=== PATIENT | male | born 1955 ===

== ENCOUNTER 2016-12-26 00:46 | Emergency (ER) | payer MEDICAID ==
[2016-12-26 23:57] LABS: MEAN CELL VOLUME 83.4 fL (80.0-94.0); MEAN CORPUSCULAR HEMOGLOBIN 26.5 pg (27.0-31.0); MEAN CORPUSCULAR HGB CONC 31.8 g/dL (33.0-37.0); MEAN PLATELET VOLUME 8.8 fL (7.2-11.7); RED CELL DISTRIBUTION WIDTH 17.8 % (11.5-14.5)
[2016-12-27 07:23] LABS: BLOOD UREA NITROGEN 17 mg/dL (9-20); CALCIUM 8.6 mg/dl (8.6-10.4); CARBON DIOXIDE 29 mmol/L (22-30); CHLORIDE 95 mmol/L (98-107); GFR AFRICAN-AMERICAN > 60; GLUCOSE,RANDOM 96 mg/dL (75-110); POTASSIUM 3.7 mmol/L (3.6-5.2); SODIUM 133 mmol/L (132-148); TOTAL PROTEIN 6.9 g/dL (6.3-8.3)
[2016-12-27 07:24] LABS: ALB/GLOB RATIO 1.7 (1.0-2.1); ALKALINE PHOSPHATASE 69 U/L (38-126); ALT/SGPT 41 U/L (21-72); AST/SGOT 33 U/L (17-59); BILIRUBIN,TOTAL 0.6 mg/dL (0.2-1.3)
[2016-12-27 07:35] LABS: RBC URINE 1 /hpf (0-3); URINE BACTERIA RARE (<OCC); URINE BILIRUBIN NEGATIVE (NEGATIVE); URINE BLOOD NEGATIVE (NEGATIVE); URINE COLOR Yellow (YELLOW); URINE GLUCOSE (UA) NORMAL (Normal); URINE KETONE NEGATIVE (NEGATIVE); URINE LEUKOCYTE ESTERASE NEG Leu/uL (Negative); URINE PROTEIN NEGATIVE (NEGATIVE); URINE UROBILINOGEN NORMAL mg/dL (0.2-1.0); WBC URINE 2 /hpf (0-5)
== END 2016-12-26 05:45 | disposition home or self-care (01) ==
LOC: C.ER 00:46
DX: K29.70 Gastritis, unspecified, without bleeding (principal); R10.13 Epigastric pain
CPT/HCPCS: 80053; 81001; 83690; 85027; 99281; J1885

== ENCOUNTER 2017-01-01 22:50 | Emergency (ER) | payer MEDICAID ==
[2017-01-01 22:50] VITALS: BMI 20.4
--- NOTE | 2017-01-02 00:09 | C.PDOC ---
History Of Present Illness Patient is a 61 year old male who presents to the ER with a complaint of lower abdominal pain and not being able to pass urine normally. Patient has had multiple admissions since October for dysuria, urinary retention and frequent UTIs. Patient was diagnosed with rectal CA in October. Patient has been taking medication for several months and states they did not help today. Patient has been voiding small amounts with episodes of incontinence. Denies fever, nausea, vomiting or diarrhea. Patient states that he went for a few chemo treatments but stopped going because of his urinary discomfort. Time Seen by Provider: 01/01/17 23:33 Chief Complaint (Nursing): Male Genitourinary History Per: Patient History/Exam Limitations: no limitations Onset/Duration Of Symptoms: Hrs Current Symptoms Are (Timing): Still Present Quality Of Discomfort: Unable To Describe Associated Symptoms: Urinary Symptoms (Abnormal voiding). denies: Fever, Nausea , Vomiting, Diarrhea Alleviating Factors: None Recent travel outside of the [place]: No Past Medical History Reviewed: Historical Data, Nursing Documentation, Vital Signs Vital Signs: Last Vital Signs Temp 97.6 F 01/01/17 22:56 Pulse 108 H 01/01/17 22:56 Resp 18 01/01/17 22:56 BP 133/83 01/01/17 22:56 Pulse Ox 100 01/02/17 01:01 - Medical History PMH: Asthma, HTN Other PMH: Rectal CA - [facility] Procedures EXCISION OF ASCENDING COLON, ENDO, DIAGN (10/20/16) EXCISION OF SIGMOID COLON, ENDO, DIAGN (10/20/16) INSERTION OF VAD INTO CHEST SUBCU/FASCIA, OPEN APPROACH (10/20/16) INSPECTION OF UPPER INTESTINAL TRACT, ENDO (10/20/16) INSPECTION OF UPPER VEIN, EXTERNAL APPROACH (10/20/16) Family History: States: Unknown Family Hx - Social History Hx Tobacco Use: No Hx Alcohol Use: Yes Hx Substance Use: No - Immunization History Hx Tetanus Toxoid Vaccination: No Hx Influenza Vaccination: No Hx Pneumococcal Vaccination: No Review Of Systems Constitutional: Negative for: Fever Gastrointestinal: Negative for: Nausea, Vomiting, Diarrhea Genitourinary: Positive for: Incontinence, Other (Abnormal voiding) Physical Exam - Physical Exam Appears: Non-toxic Skin: Normal Color, Warm, Dry Head: Atraumatic, Normacephalic Oral Mucosa: Moist Chest: Symmetrical, No Tenderness Cardiovascular: Rhythm Regular, No Murmur Respiratory: Normal Breath Sounds, No Rales, No Rhonchi, No Wheezing Gastrointestinal/Abdominal: Soft, Tenderness (Suprapubic), Guarding, No Rebound Neurological/Psych: Oriented x3, Normal Speech, Normal Cognition ED Course And Treatment - Laboratory Results Result Diagrams: 01/02/17 00:01 01/02/17 00:01 Lab Interpretation: No Acute Changes O2 Sat by Pulse Oximetry: 100 (Room air) Pulse Ox Interpretation: Normal Progress Note: Blood work and urinalysis ordered. Patient was able to provide a urine specimen without difficulty. Disposition Counseled Patient/Family Regarding: Studies Performed, Diagnosis, Need For Followup - Disposition Referrals: Bennett Malik MD [Staff Provider] - Disposition: HOME/ ROUTINE Disposition Time: 01:00 Condition: STABLE Instructions: Dysuria (ED) Print Language: MALAWIAN - Clinical Impression Clinical Impression: Enlarged prostate, Dysuria, Rectal cancer - Scribe Statement The provider has reviewed the documentation as recorded by the Scribles Cruz All medical record entries made by the Deanaibles were at my direction and personally dictated by me. I have reviewed the chart and agree that the record accurately reflects my personal performance of the history, physical exam, medical decision making, and the department course for this patient. I have also personally directed, reviewed, and agree with the discharge instructions and disposition.
[2017-01-02 00:30] LABS: BASO # 0.1 K/uL (0.0-0.2); BASO % 0.9 % (0.0-2.0); EOS % 0.6 % (0.0-4.0); HEMATOCRIT 44.5 % (35.0-51.0); LYMPH # 1.5 K/uL (1.0-4.3); LYMPH % 21.9 % (20.0-40.0); MEAN CELL VOLUME 90.5 fL (80.0-94.0); MEAN CORPUSCULAR HEMOGLOBIN 30.2 pg (27.0-31.0); MEAN CORPUSCULAR HGB CONC 33.4 g/dL (33.0-37.0); MEAN PLATELET VOLUME 6.8 fL (7.2-11.7); MONO # 0.7 K/uL (0.0-0.8); MONO % 11.1 % (0.0-10.0); RED CELL DISTRIBUTION WIDTH 13.7 % (11.5-14.5); WHITE BLOOD COUNT 6.7 K/uL (4.8-10.8)
[2017-01-02 00:33] LABS: RBC URINE < 1 /hpf (0-3); URINE BILIRUBIN NEGATIVE (NEGATIVE); URINE BLOOD NEGATIVE (NEGATIVE); URINE COLOR Straw (YELLOW); URINE GLUCOSE (UA) NORMAL (Normal); URINE KETONE NEGATIVE (NEGATIVE); URINE LEUKOCYTE ESTERASE NEG Leu/uL (Negative); URINE PROTEIN NEGATIVE (NEGATIVE); URINE UROBILINOGEN NORMAL mg/dL (0.2-1.0); WBC URINE < 1 /hpf (0-5)
[2017-01-02 00:51] LABS: CHLORIDE 92 mmol/L (98-107)
[2017-01-02 00:52] LABS: POTASSIUM 4.1 mmol/L (3.6-5.2); SODIUM 133 mmol/L (132-148)
[2017-01-02 00:54] LABS: ALB/GLOB RATIO 1.5 (1.0-2.1); ALKALINE PHOSPHATASE 65 U/L (38-126); ALT/SGPT 34 U/L (21-72); AST/SGOT 33 U/L (17-59); BILIRUBIN,TOTAL 0.7 mg/dL (0.2-1.3); BLOOD UREA NITROGEN 17 mg/dL (9-20); CARBON DIOXIDE 31 mmol/L (22-30); GFR AFRICAN-AMERICAN > 60; GLUCOSE,RANDOM 108 mg/dL (75-110)
[2017-01-02 00:55] LABS: CALCIUM 8.6 mg/dl (8.6-10.4)
[2017-01-02 01:16] VITALS: BP 130/80; PULSE 84; RESP 16; TEMP 97.9; O2SAT 99
== END 2017-01-02 01:16 | disposition home or self-care (01) ==
LOC: C.ER 22:50 → MERGE 22:50 → C.ER 01-02 01:16
DX: C20 Malignant neoplasm of rectum (principal); R30.0 Dysuria; N40.0 Benign prostatic hyperplasia without lower urinary tract symptoms; I10 Essential (primary) hypertension

== ENCOUNTER 2017-01-11 18:07 | Emergency (ER) | payer MEDICAID ==
[2017-01-11 18:09] VITALS: BMI 44.9
--- NOTE | 2017-01-11 19:04 | C.PDOC ---
History Of Present Illness Patient is a 61 y/o male, with history of recurrent urinary symptoms, that presents to the emergency department for evaluation of suprapubic abdominal pain , urinary retention, and episode of urinary incontinence for the last 3-4 days. Pt was seen here multiple times in the ER with similar complaints and was instructed to follow up with urologist on several occasions. Pt has not followed up with urologist yet, due to insurance reasons. Pt was seen at [facility] on 12/27/16 with similar complaints, and had abd & pelvis CT that showed bladder distention. Otherwise, denies any n/v/d, dysuria, hematuria, fever, chills, or any other associated symptoms at this time. He had a rectal biopsy that showed adenocarcinoma in October of this year but the excised lesion was negative. He did start chemo but stopped following up when the urinary symptoms developed. Time Seen by Provider: 01/11/17 18:42 Chief Complaint (Nursing): Male Genitourinary History Per: Patient History/Exam Limitations: no limitations Onset/Duration Of Symptoms: Days Current Symptoms Are (Timing): Still Present Quality Of Discomfort: "Pain" Associated Symptoms: Urinary Symptoms. denies: Fever, Chills, Nausea, Vomiting , Diarrhea, Loss Of Appetite, Back Pain, Chest Pain, Constipation Alleviating Factors: None Recent travel outside of the [place]: No Additional History Per: Patient Past Medical History Reviewed: Historical Data, Nursing Documentation, Vital Signs Vital Signs: Last Vital Signs Temp 97.4 F L 01/11/17 18:11 Pulse 115 H 01/11/17 18:11 Resp 18 01/11/17 18:11 BP 149/95 H 01/11/17 18:11 Pulse Ox 96 01/11/17 19:19 - Medical History PMH: Benign Prostatic Hyperplasia Family History: States: Unknown Family Hx - Social History Hx Alcohol Use: No Hx Substance Use: No Review Of Systems Except As Marked, All Systems Reviewed And Found Negative. Constitutional: Negative for: Fever, Chills Cardiovascular: Negative for: Chest Pain, Palpitations Respiratory: Negative for: Shortness of Breath Gastrointestinal: Positive for: Abdominal Pain (suprapubic). Negative for: Nausea, Vomiting, Diarrhea, Constipation Genitourinary: Positive for: Incontinence, Other (urinary retention). Negative for: Dysuria, Hematuria Musculoskeletal: Negative for: Back Pain Physical Exam - Physical Exam Appears: Non-toxic, Other (uncomfortable) Skin: Normal Color, Warm, Dry Head: Atraumatic, Normacephalic Eye(s): bilateral: Normal Inspection, EOMI Neck: Normal ROM, Supple Chest: Symmetrical Cardiovascular: Rhythm Regular Respiratory: Normal Breath Sounds, No Rales, No Rhonchi, No Wheezing Gastrointestinal/Abdominal: Soft, Tenderness (suprapubic), No Distention, No Guarding, No Rebound Extremity: Normal ROM Neurological/Psych: Oriented x3, Normal Speech, Normal Cognition ED Course And Treatment - Laboratory Results Result Diagrams: 01/11/17 19:23 01/11/17 19:23 Lab Interpretation: Abnormal (K+ 2.9 corrected with Kdur 60meq. Urine +29 WBC with moderate bacteria. Culture is pending) O2 Sat by Pulse Oximetry: 96 (on RA) Pulse Ox Interpretation: Normal Progress Note: Labs ordered and reviewed. Patient had less than 200ml urine on his bladder on scan. He ia able to void with minimal difficulty. Reevaluation Time: 21:31 Reassessment Condition: Unchanged - Physician Consult Information Time Consulting Physician Contacted: 21:31 Physician Contacted: Cuong Vazquez Outcome Of Conversation: He will follow up with patient in his office this week. He suggests starting Flomax BID and holding the antibiotics until cultures resulted. Disposition Counseled Patient/Family Regarding: Studies Performed, Diagnosis, Need For Followup, Rx Given - Disposition Referrals: Cuong Vazquez MD [Staff Provider] - Disposition: HOME/ ROUTINE Disposition Time: 21:32 Condition: STABLE Additional Instructions: Follow up with Dr Vazquez in his office next week. Prescriptions: Tamsulosin [Flomax] 0.4 mg PO BID #60 cap Instructions: Urinary Retention in Men (ED) Print Language: SOMALI - Clinical Impression Clinical Impression: Urinary retention - Scribe Statement The provider has reviewed the documentation as recorded by the Ashanti Seals Provider Attestation: All medical record entries made by the Deanaibles were at my direction and personally dictated by me. I have reviewed the chart and agree that the record accurately reflects my personal performance of the history, physical exam, medical decision making, and the department course for this patient. I have also personally directed, reviewed, and agree with the discharge instructions and disposition.
[2017-01-11 19:27] LABS: BASO % 0.5 % (0.0-2.0); EOS % 0.3 % (0.0-4.0); HEMATOCRIT 45.1 % (35.0-51.0); LYMPH # 1.1 K/uL (1.0-4.3); LYMPH % 16.5 % (20.0-40.0); MEAN CELL VOLUME 87.9 fL (80.0-94.0); MEAN CORPUSCULAR HEMOGLOBIN 29.4 pg (27.0-31.0); MEAN CORPUSCULAR HGB CONC 33.4 g/dL (33.0-37.0); MEAN PLATELET VOLUME 6.3 fL (7.2-11.7); MONO # 0.6 K/uL (0.0-0.8); MONO % 10.1 % (0.0-10.0); RED CELL DISTRIBUTION WIDTH 13.5 % (11.5-14.5); WHITE BLOOD COUNT 6.4 K/uL (4.8-10.8)
[2017-01-11 19:35] LABS: CHLORIDE 90 mmol/L (98-107); POTASSIUM 2.9 mmol/L (3.6-5.2); SODIUM 132 mmol/L (132-148)
[2017-01-11 19:37] LABS: ALB/GLOB RATIO 1.4 (1.0-2.1); AST/SGOT 40 U/L (17-59); BILIRUBIN,TOTAL 0.6 mg/dL (0.2-1.3); CARBON DIOXIDE 33 mmol/L (22-30); GFR AFRICAN-AMERICAN > 60; TOTAL PROTEIN 7.1 g/dL (6.3-8.3)
[2017-01-11 19:38] LABS: ALKALINE PHOSPHATASE 66 U/L (38-126); ALT/SGPT 34 U/L (21-72); BLOOD UREA NITROGEN 26 mg/dL (9-20); CALCIUM 8.2 mg/dl (8.6-10.4); GLUCOSE,RANDOM 130 mg/dL (75-110)
[2017-01-11] MEDS ORDERED: Potassium Chloride 20 mEq ER Tab PO STA (19:44)
[2017-01-11] MEDS ORDERED: Potassium Chloride 20 mEq ER Tab PO ONE ×2 (20:12→20:21)
[2017-01-11 20:13] LABS: RBC URINE 18 /hpf (0-3); URINE BACTERIA MOD (<OCC); URINE BILIRUBIN NEGATIVE (NEGATIVE); URINE BLOOD NEGATIVE (NEGATIVE); URINE COLOR Straw (YELLOW); URINE GLUCOSE (UA) NORMAL (Normal); URINE KETONE NEGATIVE (NEGATIVE); URINE LEUKOCYTE ESTERASE NEG Leu/uL (Negative); URINE PROTEIN NEGATIVE (NEGATIVE); URINE UROBILINOGEN NORMAL mg/dL (0.2-1.0); WBC URINE 29 /hpf (0-5)
[2017-01-11 21:48] VITALS: BP 142/89; PULSE 98; RESP 16; TEMP 97.6; O2SAT 97
== END 2017-01-11 21:48 | disposition home or self-care (01) ==
LOC: C.ER 18:07
DX: N40.1 Benign prostatic hyperplasia with lower urinary tract symptoms (principal); R33.8 Other retention of urine; E87.6 Hypokalemia

== ENCOUNTER 2017-01-23 04:48 | Emergency (ER) | payer MEDICAID ==
[2017-01-23 04:49] VITALS: BMI 44.9
--- NOTE | 2017-01-23 04:52 | C.PDOC ---
History Of Present Illness Patient presents to the ER with a complaint of urinary difficulty. Patient has been in the ER numerous times with similar complaints and is known to have a Hx of BPH and a questionable rectal CA. Denies fever, chills, nausea or vomiting. Time Seen by Provider: 01/23/17 04:52 History Per: Patient History/Exam Limitations: no limitations Onset/Duration Of Symptoms: Hrs Current Symptoms Are (Timing): Still Present Severity: None Pain Scale Rating Of: 0 Quality Of Discomfort: Unable To Describe Associated Symptoms: denies: Fever, Chills, Nausea, Vomiting Alleviating Factors: None Recent travel outside of the [place]: No Past Medical History Reviewed: Historical Data, Nursing Documentation, Vital Signs Vital Signs: Last Vital Signs Temp 97.6 F 01/23/17 04:57 Pulse 96 H 01/23/17 04:57 Resp 20 01/23/17 04:57 BP 155/81 H 01/23/17 04:57 Pulse Ox 98 01/23/17 04:57 - Medical History PMH: Asthma, Benign Prostatic Hyperplasia, HTN - [facility] Procedures EXCISION OF ASCENDING COLON, ENDO, DIAGN (10/20/16) EXCISION OF SIGMOID COLON, ENDO, DIAGN (10/20/16) INSERTION OF VAD INTO CHEST SUBCU/FASCIA, OPEN APPROACH (10/20/16) INSPECTION OF UPPER INTESTINAL TRACT, ENDO (10/20/16) INSPECTION OF UPPER VEIN, EXTERNAL APPROACH (10/20/16) Family History: States: No Known Family Hx - Social History Hx Tobacco Use: No Hx Alcohol Use: No Hx Substance Use: No - Immunization History Hx Tetanus Toxoid Vaccination: No Hx Influenza Vaccination: No Hx Pneumococcal Vaccination: No Review Of Systems Constitutional: Negative for: Fever, Chills Gastrointestinal: Negative for: Nausea, Vomiting Genitourinary: Positive for: Other (Urinary difficulty) Physical Exam - Physical Exam Appears: Non-toxic Skin: Warm, Dry Oral Mucosa: Moist Chest: Symmetrical, No Tenderness Cardiovascular: Rhythm Regular, No Murmur Respiratory: No Rales, No Rhonchi, No Wheezing Gastrointestinal/Abdominal: Soft, No Tenderness, No Distention Neurological/Psych: Oriented x3 ED Course And Treatment Pulse Ox Interpretation: Normal Progress Note: Bladder scan was done and found to have minimal residual urine. Ativan administered. Reevaluation Time: 06:04 Reassessment Condition: Improved Disposition Counseled Patient/Family Regarding: Studies Performed, Diagnosis, Need For Followup - Disposition Referrals: Cuong Vazquez MD [Staff Provider] - Disposition: HOME/ ROUTINE Disposition Time: 04:52 Condition: FAIR Instructions: Anxiety (ED), Dysuria (ED) Print Language: ZAMBIAN - Clinical Impression Clinical Impression: Enlarged prostate, Anxiety - Scribe Statement The provider has reviewed the documentation as recorded by the Scribe Kory Cruz All medical record entries made by the Deanaibe were at my direction and personally dictated by me. I have reviewed the chart and agree that the record accurately reflects my personal performance of the history, physical exam, medical decision making, and the department course for this patient. I have also personally directed, reviewed, and agree with the discharge instructions and disposition.
[2017-01-23 04:59] VITALS: RESP 20
[2017-01-23 06:16] VITALS: BP 130/70; PULSE 81; TEMP 97.4; O2SAT 97
== END 2017-01-23 06:16 | disposition home or self-care (01) ==
LOC: C.ER 04:48
DX: N40.0 Benign prostatic hyperplasia without lower urinary tract symptoms (principal); F41.9 Anxiety disorder, unspecified

== ENCOUNTER 2017-02-02 17:16 | Emergency (ER) | payer MEDICAID ==
[2017-02-02 17:17] VITALS: BMI 44.9
[2017-02-02] MEDS ORDERED: Sodium Chloride 0.9% 1,000 ML IV ONE (18:13)
--- NOTE | 2017-02-02 18:13 | C.PDOC ---
History Of Present Illness 61 yr old M c/o not being able to urinate for 3 days. Pt states only dribbles come out, last time this AM. PT states its been chronic for moths. Time Seen by Provider: 02/02/17 17:34 Chief Complaint (Nursing): Male Genitourinary History Per: Patient History/Exam Limitations: language barrier (translated from Belarusian by pt's nurse Daphney.) Onset/Duration Of Symptoms: Gradual (months) Current Symptoms Are (Timing): Still Present Past Medical History Reviewed: Historical Data, Nursing Documentation, Vital Signs Vital Signs: Last Vital Signs Temp 97.9 F 02/02/17 18:41 Pulse 84 02/02/17 18:41 Resp 18 02/02/17 18:41 BP 113/51 L 02/02/17 18:41 Pulse Ox 96 02/02/17 19:08 - Medical History PMH: Asthma, Benign Prostatic Hyperplasia, HTN, Chronic Kidney Disease Denies: HIV - [facility] Procedures EXCISION OF ASCENDING COLON, ENDO, DIAGN (10/20/16) EXCISION OF SIGMOID COLON, ENDO, DIAGN (10/20/16) INSERTION OF VAD INTO CHEST SUBCU/FASCIA, OPEN APPROACH (10/20/16) INSPECTION OF UPPER INTESTINAL TRACT, ENDO (10/20/16) INSPECTION OF UPPER VEIN, EXTERNAL APPROACH (10/20/16) Family History: States: Unknown Family Hx - Social History Hx Tobacco Use: No Hx Alcohol Use: No Hx Substance Use: No - Immunization History Hx Tetanus Toxoid Vaccination: No Hx Influenza Vaccination: No Hx Pneumococcal Vaccination: No Review Of Systems Except As Marked, All Systems Reviewed And Found Negative. Constitutional: Negative for: Fever Eyes: Negative for: Pain Cardiovascular: Negative for: Chest Pain Respiratory: Negative for: Cough Gastrointestinal: Positive for: Abdominal Pain (mild suprapubic). Negative for : Nausea, Vomiting Genitourinary: Positive for: Dysuria Physical Exam - Physical Exam Appears: Well, Non-toxic, No Acute Distress Skin: Normal Color, Warm, Dry, Other ((+)neurofibromatosis) Head: Atraumatic, Normacephalic Nose: Normal Oral Mucosa: Moist Tongue: Normal Appearing Neck: Normal Chest: Symmetrical Cardiovascular: Rhythm Regular Respiratory: Normal Breath Sounds Gastrointestinal/Abdominal: Normal Exam, Bowel Sounds, Soft, Tenderness ( minimal suprapubic) Back: Normal Inspection, No CVA Tenderness Extremity: Normal ROM ED Course And Treatment - Laboratory Results Result Diagrams: 02/02/17 18:19 02/02/17 18:19 Lab Interpretation: No Acute Changes O2 Sat by Pulse Oximetry: 96 Pulse Ox Interpretation: Normal Medical Decision Making Medical Decision Making: Mult visits to ED for the same complaint. Pt was not found to be in retention in the past. Bladder scan today 108 ml. Pt's blood reviewed, no acute changes, no evidence of renal failure. Pt has a CT this month, no acute changes. Pt still did not follow up with urologist, discussed importance of Urologist follow up. Disposition Counseled Patient/Family Regarding: Studies Performed, Diagnosis, Need For Followup - Disposition Referrals: [facility] [Outside] Cuong Vazquez MD [Staff Provider] - Cole Paniagua [Medical Doctor] - Disposition: HOME/ ROUTINE Disposition Time: 19:06 Condition: STABLE Additional Instructions: TAKE URECHOLINE, PROSCAR, AND PYRIDIUM DIRECTED ON 01/27/17. FOLLOW UP WITH UROLOGIST FOR FURTHER EVALUATION. IF SYMPTOMS GET WORSE OR ANY NEW CONCERNING SYMPTOMS DEVELOP RETURN TO ED. Instructions: Dysuria (ED) Forms: Gen Discharge Inst Belarusian Print Language: TOGOLESE - Clinical Impression Clinical Impression: Neurofibromatosis, Incomplete bladder emptying
[2017-02-02 18:28] LABS: BASO % 0.4 % (0.0-2.0); EOS % 0.1 % (0.0-4.0); HEMATOCRIT 40.7 % (35.0-51.0); LYMPH # 0.7 K/uL (1.0-4.3); LYMPH % 13.6 % (20.0-40.0); MEAN CELL VOLUME 88.9 fL (80.0-94.0); MEAN CORPUSCULAR HEMOGLOBIN 29.7 pg (27.0-31.0); MEAN CORPUSCULAR HGB CONC 33.4 g/dL (33.0-37.0); MEAN PLATELET VOLUME 6.3 fL (7.2-11.7); MONO # 0.4 K/uL (0.0-0.8); MONO % 7.6 % (0.0-10.0); NRBC % 0.1 % (0.0-2.0); RED CELL DISTRIBUTION WIDTH 13.3 % (11.5-14.5); WHITE BLOOD COUNT 5.5 K/uL (4.8-10.8)
[2017-02-02 18:39] LABS: CHLORIDE 96 mmol/L (98-107)
[2017-02-02 18:40] LABS: POTASSIUM 3.8 mmol/L (3.6-5.2); SODIUM 134 mmol/L (132-148)
[2017-02-02 18:42] VITALS: BP 113/51; PULSE 84; RESP 18; TEMP 97.9
[2017-02-02 18:42] LABS: ALB/GLOB RATIO 1.1 (1.0-2.1); AST/SGOT 17 U/L (17-59); BILIRUBIN,TOTAL 0.7 mg/dL (0.2-1.3); CARBON DIOXIDE 27 mmol/L (22-30); GFR AFRICAN-AMERICAN > 60; TOTAL PROTEIN 6.7 g/dL (6.3-8.3)
[2017-02-02 18:43] VITALS: O2SAT 96
[2017-02-02 18:43] LABS: ALKALINE PHOSPHATASE 57 U/L (38-126); ALT/SGPT 26 U/L (21-72); BLOOD UREA NITROGEN 15 mg/dL (9-20); CALCIUM 8.5 mg/dl (8.6-10.4); GLUCOSE,RANDOM 165 mg/dL (75-110)
== END 2017-02-02 19:22 | disposition home or self-care (01) ==
LOC: C.ER 17:16
DX: Q85.00 Neurofibromatosis, unspecified (principal); N40.1 Benign prostatic hyperplasia with lower urinary tract symptoms; R33.8 Other retention of urine

== ENCOUNTER 2017-02-06 21:22 | Emergency (ER) | payer MEDICAID ==
[2017-02-06 21:22] VITALS: BMI 44.9
[2017-02-06 21:32] VITALS: BP 140/87; PULSE 80; TEMP 98.1; O2SAT 98
--- NOTE | 2017-02-06 21:53 | C.PDOC ---
History Of Present Illness 61 year old male presents to the ED with complaints of urinary retention for the last four days. Patient has been seen numerous times at [facility] ED for similar symptoms including 01/23/17 and 02/02/17, as well as in [place] ED, with no urinary retention shown on bladder scans. He notes medications have not relieved his symptoms. He was recently admitted earlier this month for the same complaints but did not follow up with PMD or urologist because he states he is unsure of which doctor is covered by his insurance company. Patient denies any fever, back pain, or other complaints at this time. Time Seen by Provider: 02/06/17 21:38 Chief Complaint (Nursing): Male Genitourinary History Per: Patient History/Exam Limitations: no limitations Onset/Duration Of Symptoms: Persistent (patient has been seen numerous times in [facility] ED and [place] ED for same complaints ) Current Symptoms Are (Timing): Still Present Reports Recently: Seen In ED, Hospitalized Recent travel outside of the [place]: No Past Medical History Reviewed: Historical Data, Nursing Documentation, Vital Signs Vital Signs: Last Vital Signs Temp 98.1 F 02/06/17 21:30 Pulse 80 02/06/17 21:30 Resp 18 02/06/17 22:00 BP 140/87 02/06/17 21:30 Pulse Ox 98 02/06/17 22:27 - Medical History PMH: Asthma, Benign Prostatic Hyperplasia, HTN, Chronic Kidney Disease - [facility] Procedures EXCISION OF ASCENDING COLON, ENDO, DIAGN (10/20/16) EXCISION OF SIGMOID COLON, ENDO, DIAGN (10/20/16) INSERTION OF VAD INTO CHEST SUBCU/FASCIA, OPEN APPROACH (10/20/16) INSPECTION OF UPPER INTESTINAL TRACT, ENDO (10/20/16) INSPECTION OF UPPER VEIN, EXTERNAL APPROACH (10/20/16) Family History: States: Unknown Family Hx - Social History Hx Tobacco Use: No Hx Alcohol Use: No Hx Substance Use: No - Immunization History Hx Tetanus Toxoid Vaccination: No Hx Influenza Vaccination: No Hx Pneumococcal Vaccination: No Review Of Systems Except As Marked, All Systems Reviewed And Found Negative. Constitutional: Negative for: Fever Respiratory: Negative for: Shortness of Breath Musculoskeletal: Negative for: Back Pain Physical Exam - Physical Exam Additional Physical Exam Comments: Constitutional: No acute distress. Head: Normocephalic. Atraumatic. Eyes: PERRL. ENT: Moist mucous membranes. Neck: Supple. Cardiovascular: Regular rate. Radial pulse 2+ bilaterally. Chest: No tenderness. Respiratory: Clear to auscultation bilaterally. GI: Soft. Minimal Suprapubic tenderness. Nondistended. Back: No CVA tenderness. Musculoskeletal: No tenderness or swelling of extremities. Skin: No rash. Neurologic: Alert, no focal deficit. Bladder scan performed showing 15 mL. ED Course And Treatment O2 Sat by Pulse Oximetry: 98 (room air ) Medical Decision Making Medical Decision Making: Blood work was reviewed from patient's last visit to the ED day 4 days prior and normal creatinine levels were noted. It is essential for the patient to follow up with PMD and urologist for his symptoms. The importance of following up through outpatient was communicated to the patient. Disposition - Disposition Referrals: Cuong Vazquez MD [Staff Provider] - Disposition: HOME/ ROUTINE Disposition Time: 21:52 Condition: STABLE Instructions: Dysuria (ED) - Clinical Impression Clinical Impression: Decreased urination - Scribe Statement The provider has reviewed the documentation as recorded by the Scribles Ellis All medical record entries made by the Ashanti were at my direction and personally dictated by me. I have reviewed the chart and agree that the record accurately reflects my personal performance of the history, physical exam, medical decision making, and the department course for this patient. I have also personally directed, reviewed, and agree with the discharge instructions and disposition.
[2017-02-06 22:05] VITALS: RESP 18
== END 2017-02-06 22:00 | disposition home or self-care (01) ==
LOC: C.ER 21:22
DX: N39.8 Other specified disorders of urinary system (principal); I12.9 Hypertensive chronic kidney disease with stage 1 through stage 4 chronic kidney disease, or unspecified chronic kidney disease; N18.9 Chronic kidney disease, unspecified; N40.0 Benign prostatic hyperplasia without lower urinary tract symptoms

== ENCOUNTER 2017-02-13 17:59 | Emergency (ER) | payer MEDICAID ==
[2017-02-13 17:59] VITALS: BMI 44.9
[2017-02-13 18:08] VITALS: O2SAT 99
--- NOTE | 2017-02-13 20:43 | C.PDOC ---
History Of Present Illness 61 y/o male, with Hx of BPH, presents to the ER requesting removal of his green catheter. pt needs cateter placed at another instituion. also noted swelling of his distal penis. Otherwise, denies any fever, chills, or any other associated symptoms at this time. Time Seen by Provider: 02/13/17 19:01 Chief Complaint (Nursing): Male Genitourinary History Per: Patient History/Exam Limitations: no limitations Onset/Duration Of Symptoms: Gradual Current Symptoms Are (Timing): Still Present Severity: None Pain Scale Rating Of: 0 Associated Symptoms: denies: Fever, Chills, Nausea, Vomiting, Diarrhea, Loss Of Appetite, Back Pain, Chest Pain, Constipation, Urinary Symptoms Alleviating Factors: None Recent travel outside of the [place]: No Additional History Per: Patient Past Medical History Reviewed: Historical Data, Nursing Documentation, Vital Signs Vital Signs: Last Vital Signs Temp 98.6 F 02/13/17 20:44 Pulse 75 02/13/17 20:44 Resp 18 02/13/17 20:44 BP 129/77 02/13/17 20:44 Pulse Ox 99 02/13/17 21:06 - Medical History PMH: Asthma, Benign Prostatic Hyperplasia, HTN, Chronic Kidney Disease Denies: HIV - [facility] Procedures EXCISION OF ASCENDING COLON, ENDO, DIAGN (10/20/16) EXCISION OF SIGMOID COLON, ENDO, DIAGN (10/20/16) INSERTION OF VAD INTO CHEST SUBCU/FASCIA, OPEN APPROACH (10/20/16) INSPECTION OF UPPER INTESTINAL TRACT, ENDO (10/20/16) INSPECTION OF UPPER VEIN, EXTERNAL APPROACH (10/20/16) Family History: States: Unknown Family Hx - Social History Hx Tobacco Use: No Hx Alcohol Use: No Hx Substance Use: No - Immunization History Hx Tetanus Toxoid Vaccination: No Hx Influenza Vaccination: No Hx Pneumococcal Vaccination: No Review Of Systems Except As Marked, All Systems Reviewed And Found Negative. Constitutional: Negative for: Fever, Chills Gastrointestinal: Negative for: Nausea, Vomiting, Abdominal Pain, Diarrhea Genitourinary: Negative for: Hematuria Musculoskeletal: Negative for: Back Pain Physical Exam - Physical Exam Appears: Non-toxic, No Acute Distress Skin: Normal Color, Warm, Dry Head: Atraumatic, Normacephalic Eye(s): bilateral: Normal Inspection, EOMI Neck: Normal ROM, Supple Chest: Symmetrical, No Tenderness Cardiovascular: Rhythm Regular, No Murmur Respiratory: Normal Breath Sounds, No Rales, No Rhonchi, No Wheezing Gastrointestinal/Abdominal: Soft, No Tenderness Male Genital: Other (paraphimosis and swelling to foreskin) Extremity: Normal ROM Neurological/Psych: Oriented x3, Normal Speech, Normal Cognition ED Course And Treatment O2 Sat by Pulse Oximetry: 99 (on RA) Pulse Ox Interpretation: Normal Medical Decision Making Medical Decision Making: Found paraphimosis. Pt granted permission to take an image and send to urologist. Spoke with Dr. Malik on phone who states will see patient in his office tomorrow at 9AM. pt updated with results. explained extensively at bedside, about urology f/u with director of logistics agrees to f/u Disposition - Disposition Referrals: Bennett Malik MD [Staff Provider] - Disposition: HOME/ ROUTINE Disposition Time: 20:26 Condition: STABLE Additional Instructions: please follow up with urologist at 9 am. he is expecting to see you in the morning. return to er with any worsening symptoms or concerns. Instructions: Acute Paraphimosis (ED) Print Language: YEMENI - Clinical Impression Clinical Impression: Paraphimosis - Scribe Statement The provider has reviewed the documentation as recorded by the Deanaibles Seasl All medical record entries made by the Deanaibles were at my direction and personally dictated by me. I have reviewed the chart and agree that the record accurately reflects my personal performance of the history, physical exam, medical decision making, and the department course for this patient. I have also personally directed, reviewed, and agree with the discharge instructions and disposition.
[2017-02-13 20:44] VITALS: BP 129/77; PULSE 75; RESP 18; TEMP 98.6
== END 2017-02-13 20:48 | disposition home or self-care (01) ==
LOC: C.ER 17:59
DX: N47.2 Paraphimosis (principal)

== ENCOUNTER 2017-02-17 09:35 | Inpatient (IN) | payer MEDICAID ==
[2017-02-17 09:35] VITALS: BMI 44.9
[2017-02-17 11:51] LABS: BASO % 0.6 % (0.0-2.0); EOS % 0.3 % (0.0-4.0); HEMATOCRIT 43.2 % (35.0-51.0); LYMPH # 0.8 K/uL (1.0-4.3); MEAN CELL VOLUME 88.6 fL (80.0-94.0); MEAN CORPUSCULAR HEMOGLOBIN 29.8 pg (27.0-31.0); MEAN CORPUSCULAR HGB CONC 33.6 g/dL (33.0-37.0); MONO # 0.5 K/uL (0.0-0.8); MONO % 7.8 % (0.0-10.0); RED CELL DISTRIBUTION WIDTH 13.3 % (11.5-14.5); WHITE BLOOD COUNT 6.9 K/uL (4.8-10.8)
[2017-02-17 11:56] LABS: CHLORIDE 99 mmol/L (98-107)
[2017-02-17 11:57] LABS: POTASSIUM 3.8 mmol/L (3.6-5.2); SODIUM 135 mmol/L (132-148)
[2017-02-17 11:58] LABS: RBC URINE 22 /hpf (0-3); URINE BACTERIA OCC (<OCC); URINE BILIRUBIN NEGATIVE (NEGATIVE); URINE BLOOD 3+ (NEGATIVE); URINE COLOR Yellow (YELLOW); URINE GLUCOSE (UA) NORMAL (Normal); URINE KETONE NEGATIVE (NEGATIVE); URINE LEUKOCYTE ESTERASE TRACE Leu/uL (Negative); URINE PROTEIN 1+ mg/dL (NEGATIVE); URINE UROBILINOGEN NORMAL mg/dL (0.2-1.0); WBC URINE 10 /hpf (0-5)
[2017-02-17 11:59] LABS: ALB/GLOB RATIO 1.2 (1.0-2.1); ALKALINE PHOSPHATASE 68 U/L (38-126); AST/SGOT 23 U/L (17-59); BILIRUBIN,TOTAL 0.6 mg/dL (0.2-1.3); CARBON DIOXIDE 27 mmol/L (22-30); GFR AFRICAN-AMERICAN > 60; TOTAL PROTEIN 6.9 g/dL (6.3-8.3)
[2017-02-17 12:00] LABS: ALT/SGPT 34 U/L (21-72); BLOOD UREA NITROGEN 13 mg/dL (9-20); GLUCOSE,RANDOM 97 mg/dL (75-110)
[2017-02-17] MEDS ORDERED: Sodium Chloride 0.9% 1,000 ML IV ONE (12:09)
--- NOTE | 2017-02-17 12:09 | C.PDOC ---
History Of Present Illness 61 year old male who presents to the ER with a complaint of penile pain. Patient has been following with Dr. Malik and and was following with Dr. Tirado for medical clearance for likely circumsion, but did not follow-up. Patient presents today complaining of persistent pain. Denies fever, dysuria, hematuria, abdominal pain, or back pain. Time Seen by Provider: 02/17/17 11:38 Chief Complaint (Nursing): Male Genitourinary History Per: Patient History/Exam Limitations: no limitations Onset/Duration Of Symptoms: Days Current Symptoms Are (Timing): Still Present Quality Of Discomfort: Unable To Describe Associated Symptoms: denies: Fever, Chills, Back Pain, Urinary Symptoms Alleviating Factors: None Recent travel outside of the [place]: No Past Medical History Reviewed: Historical Data, Nursing Documentation, Vital Signs Vital Signs: Last Vital Signs Temp 97.6 F 02/17/17 12:35 Pulse 105 H 02/17/17 12:35 Resp 18 02/17/17 12:35 BP 151/92 H 02/17/17 12:35 Pulse Ox 98 02/17/17 12:35 - Medical History PMH: Asthma, Benign Prostatic Hyperplasia, HTN, Chronic Kidney Disease - [facility] Procedures EXCISION OF ASCENDING COLON, ENDO, DIAGN (10/20/16) EXCISION OF SIGMOID COLON, ENDO, DIAGN (10/20/16) INSERTION OF VAD INTO CHEST SUBCU/FASCIA, OPEN APPROACH (10/20/16) INSPECTION OF UPPER INTESTINAL TRACT, ENDO (10/20/16) INSPECTION OF UPPER VEIN, EXTERNAL APPROACH (10/20/16) Family History: States: Unknown Family Hx - Social History Hx Tobacco Use: No Hx Alcohol Use: No Hx Substance Use: No - Immunization History Hx Tetanus Toxoid Vaccination: No Hx Influenza Vaccination: No Hx Pneumococcal Vaccination: No Review Of Systems Except As Marked, All Systems Reviewed And Found Negative. Constitutional: Negative for: Fever, Chills Eyes: Negative for: Pain Cardiovascular: Negative for: Chest Pain, Palpitations Respiratory: Negative for: Cough, Shortness of Breath, SOB with Excertion, Wheezing Gastrointestinal: Negative for: Nausea, Vomiting, Abdominal Pain, Constipation Genitourinary: Positive for: Penile Pain. Negative for: Dysuria, Hematuria Musculoskeletal: Negative for: Back Pain Physical Exam - Physical Exam Appears: Non-toxic Skin: Normal Color, Warm, Dry Head: Atraumatic, Normacephalic Oral Mucosa: Moist Chest: Symmetrical, No Tenderness Cardiovascular: Rhythm Regular, No Murmur Respiratory: Normal Breath Sounds, No Rales, No Rhonchi, No Wheezing Gastrointestinal/Abdominal: Soft, No Tenderness Male Genital: No Scrotal Swelling, Other (Paraphimosis, Wells in place) Neurological/Psych: Oriented x3, Normal Speech, Normal Cognition ED Course And Treatment - Laboratory Results Result Diagrams: 02/17/17 11:45 02/17/17 11:45 O2 Sat by Pulse Oximetry: 98 (Room air) Pulse Ox Interpretation: Normal Progress Note: Blood work, EKG, and CXR ordered. Morphine and IV fluids administered. Medical Decision Making Medical Decision Making: Spoke to Dr. Malik. He reports that patient needs emergent circumsion due to extensive paraphimosis but cannot be cleared by outpatient physician (Dr. Tirado due to lack of labs and poor follow-up). Cannot be safely discharged home. Discussed with Dr. Seals, will admit to Hospitalist for pre-op evaluation with urology on consult. Disposition - Disposition Disposition: HOSPITALIZED Disposition Time: 12:40 Condition: FAIR - Clinical Impression Clinical Impression: Paraphimosis - Scribe Statement The provider has reviewed the documentation as recorded by the Scribles Cruz All medical record entries made by the Deanaibles were at my direction and personally dictated by me. I have reviewed the chart and agree that the record accurately reflects my personal performance of the history, physical exam, medical decision making, and the department course for this patient. I have also personally directed, reviewed, and agree with the discharge instructions and disposition.
[2017-02-17] MEDS ORDERED: Morphine 4 MG/ML VIAL IV ONE (12:18)
[2017-02-17] MEDS ORDERED: Morphine 4 MG/ML VIAL ONE (12:31)
--- NOTE | 2017-02-17 13:08 | RAD ---
HISTORY: pre-op COMPARISON: No prior. FINDINGS: LUNGS: Evaluation of the lung parenchyma particularly on the left side is quite limited due to a extremely severe in levoscoliosis which distorts the entire thorax and partially obscures the left mid to lower lung field. Right lung appears clear so far as can be seen. There may be some left basilar atelectasis. In situ right-sided MediPort which appears to enter the right IJ with tip in the SVC. PLEURA: No significant pleural effusion identified, no pneumothorax apparent. CARDIOVASCULAR: Heart size is difficult to assess due to the marked distortion of the mediastinum secondary to the aforementioned severe levoscoliosis OSSEOUS STRUCTURES: No significant abnormalities. VISUALIZED UPPER ABDOMEN: Normal. OTHER FINDINGS: None. IMPRESSION: Limited study due to severe levoscoliosis of the thoracic spine which partially obscures the left mid-lower lung field. No definitive infiltrates so far as can be seen. In situ right-sided MediPort.
--- NOTE | 2017-02-17 14:48 | PCM.URO ---
Urology Progress Note - Subjective Abdominal Pain: Yes Other: paraphimosis - Objective Lab Results Last 24 Hours: Laboratory Results - last 24 hr 02/17/17 02/17/17 12:21 12:21 PT 11.9 INR 1.0 APTT 32 Blood Type O POSITIVE Antibody Screen Negative Vital Signs: Vital Signs - 24 hr 02/17/17 02/17/17 12:35 13:14 Temperature 97.6 F Pulse Rate 105 H Respiratory 18 Rate Blood Pressure 151/92 H O2 Sat by Pulse 98 98 Oximetry - Physical Exam Genitalia: Inflammation Present - Male Phallus: Uncircumcised
[2017-02-17] MEDS ORDERED: Oxycodone/Acetaminophen 5/325 mg Tab PO PRN (19:59)
--- NOTE | 2017-02-17 21:17 | CP.PCM.HP ---
History of Present Illness - History of Present Illness History of Present Illness: Patient is admitted for paraphimosis for surgery. A year ago patient had a bladder cancer and subsequently underwent a chemotherapy and radiation. Since the radiation therapy patient has been complaining off moderate to severe urinary complaints with multiple he and hospital admissions. Recently patient had acute urinary olfaction had a Wells catheter is and subsequently developed severe swelling of his penis.. PAST HIST. Patient is a history of diabetes, hypertension. PERSONAL HIST: Smoking. N Alcohol. N Allergy N Travel_- . FAMILY HIST : ROS : Constitutional: Negative for weight change, chills, night sweats, fatigue and usage of assist device. Eyes: Negative for redness, swelling, itching, discharge, vision changes, blurry vision, double vision, glaucoma, cataracts, Ears: Negative for hearing loss, ringing, , tinnitus, vertigo Nose: Negative for rhinorrhea, stuffiness, sniffing, itching, postnasal drip, discoloration, nasal congestion and epistaxis. Throat: Negative for throat clearing, sore throat, hoarseness, difficulty swallowing and difficulty speaking. Respiratory: Negative for cough, chest tightness, sputum or phlegm, chronic cough, hemoptysis, wheezing, snoring at night, pleuritic chest pain and daytime somnolence. Cardiovascular: Negative for chest pain, palpitations, orthopnea, PND, Edema of legs, leg cramps, angina, claudication, , irregular heartbeat, Neurology: Negative for irritability, muscle weakness, numbness and tingling, seizures, tremors, migraines, slurred speech, syncope, memory loss, mood changes , recurrent headaches Gastrointestinal: Negative for difficulty swallowing, diarrhea, constipation, black stools, rectal bleeding, nausea, flatulence, reflux, poor appetite, changes in bowel habits, abdominal pain Genitourinary: Negative for frequent urination, hematuria, discharge, incontinence, urinary retention, frequent UTI, Psychiatric: Negative for depression, anxiety/panic, suicidal tendencies, Musculoskeletal: Negative for swollen joints, back pain, , neck pain, morning stiffness of joints, . Skin: Negative for rash, ulcers, itching, dry skin and pigmented lesions. P/E: Constitutional: Appears stated age and in no apparent distress. Head: Normocephalic. Ears: External ear canals patent without inflammation. Tympanic membranes intact with normal light reflex and landmark. Eyes: Pupils are central, bilaterally equal, symmetrical and reacts to light with normal movements and no icterus or pallor. Nose: External nares are patent. Mucosa is pink Mouth-Throat: Good general appearance and condition. No post-pharyngeal/oropharyngeal erythema and tonsillar hypertrophy. Good dental hygiene. Neck-Lymphatic: Neck is supple with normal ROM, no thyromegaly, lymph nodes or masses. JVD is normal with no carotid bruit. Lungs: Clear to percussion and auscultation with bilateral normal air entry. Cardiovascular: S1 and S2 are normal with no murmurs, gallops and rub. GI Exam: No hepatomegaly. Abdomen is soft and non-tender. No Organomegaly , masses or hernias are evident and bowel sounds are normal and active. Neurology: Higher function and all cranial nerves intact, with no gross motor or sensory deficit. Superficial and deep reflexes are normal with downwards planters. No cerebellar deficit with normal gait. Musculoskeletal: No tender spots with normal curvature of the spine with no swelling or restricted ROM of the small and large joints. Extremities: Homans sign absent. Intact pulses with no pitting edema, calf tenderness or skin color changes. Skin: penile organ is swollen and inflamed and with the Wells catheter. LAB/RADIOLOGY: ASSESMENT : Paraphimosis. evaluation for further management. Diabetes, stable on medication. Present on Admission - Present on Admission Any Indicators Present on Admission: No Past Patient History - Infectious Disease Hx of Infectious Diseases: None - Past Medical History & Family History Past Medical History?: Yes - Past Social History Smoking Status: Former Smoker - CARDIAC Hx Hypertension: Yes - PULMONARY Hx Asthma: Yes - NEUROLOGICAL Other/Comment: poor historian vs forgetfulness - HEENT Hx HEENT Problems: No - RENAL Hx Chronic Kidney Disease: Yes - ENDOCRINE/METABOLIC Hx Endocrine Disorders: No - HEMATOLOGICAL/ONCOLOGICAL Hx Human Immunodeficiency Virus (HIV): No - INTEGUMENTARY Hx Dermatological Problems: Yes Other/Comment: generalized skin lessions - MUSCULOSKELETAL/RHEUMATOLOGICAL Hx Musculoskeletal Disorders: No - GASTROINTESTINAL Hx Gastrointestinal Disorders: No Other/Comment: rectal CA - GENITOURINARY/GYNECOLOGICAL Hx Genitourinary Disorders: Yes - PSYCHIATRIC Hx Substance Use: No - SURGICAL HISTORY Hx Surgeries: Yes Hx Herniorrhaphy: Yes - ANESTHESIA Hx Anesthesia: Yes Hx Anesthesia Reactions: No Meds Allergies/Adverse Reactions: Allergies Allergy/AdvReac Type Severity Reaction Status Date / Time No Known Allergies Allergy Verified 02/17/17 09:57 Results - Vital Signs Recent Vital Signs: Last Vital Signs Temp 97.8 F 02/17/17 18:21 Pulse 88 02/17/17 18:21 Resp 18 02/17/17 18:21 BP 143/78 02/17/17 18:21 Pulse Ox 97 02/17/17 18:21 - Labs Result Diagrams: 02/17/17 11:45 02/17/17 11:45
[2017-02-17] MEDS: (Novolin R) Insulin Human Regular 100 units/ml vial SC SCH (22:50)
[2017-02-18] MEDS: (Novolin R) Insulin Human Regular 100 units/ml vial SC SCH ×4 (08:01→21:12)
[2017-02-18] MEDS ORDERED: Home Med 1 UNIT (Ramipril [Altace] 5 MG) PO SCH (10:00)
--- NOTE | 2017-02-18 13:00 | CP.PCM.PN ---
Subjective - Date & Time of Evaluation Date of Evaluation: 02/18/17 Time of Evaluation: 13:00 - Subjective Subjective: CLINICALLY SAME FOR OR PER UROLOGY Objective - Vital Signs/Intake and Output Vital Signs (last 24 hours): Temp Pulse Resp BP Pulse Ox 98.2 F 74 20 140/94 H 96 02/18/17 00:00 02/18/17 00:00 02/18/17 00:00 02/18/17 09:37 02/18/17 00:00 Intake and Output: 02/18/17 02/18/17 11:59 23:59 Intake Total 120 Output Total 550 Balance -430 - Medications Medications: Current Medications Doxazosin Mesylate (Cardura) 2 mg PO DAILY [facility] Last Admin: 02/18/17 09:37 Dose: 2 mg Enalapril Maleate (Vasotec) 10 mg PO DAILY [facility] Last Admin: 02/18/17 09:37 Dose: 10 mg Finasteride (Proscar) 5 mg PO DAILY [facility] Last Admin: 02/18/17 09:37 Dose: 5 mg Insulin Human Regular (Novolin R) 0 unit SC [facility] PRN Reason: Protocol Last Admin: 02/18/17 12:21 Dose: Not Given Lactulose (Enulose) 20 gm PO HS [facility] Oxycodone/Acetaminophen (Percocet 5/325 Mg Tab) 1 tab PO Q6H PRN PRN Reason: Pain, moderate (4-7) Stop: 02/20/17 20:00 Last Admin: 02/18/17 00:50 Dose: 1 tab Pneumococcal Polyvalent Vaccine (Pneumovax 23 Vaccine) 0.5 ml IM .ONCE ONE Stop: 02/20/17 10:01 Tamsulosin HCl (Flomax) 0.4 mg PO DAILY [facility] Last Admin: 02/18/17 09:37 Dose: 0.4 mg - Labs Labs: PT 11.9 SECONDS (9.7-12.2) 02/17/17 12:21 INR 1.0 02/17/17 12:21 APTT 32 SECONDS (21-34) 02/17/17 12:21
[2017-02-18] MEDS ORDERED: Bupivacaine HCl 0.25% PF (10 ml) Inj ONE (16:35)
[2017-02-18] MEDS ORDERED: cefTRIAXone IV 1 gm in Dextros 0 ML IVPB ONE (16:36)
[2017-02-18] MEDS ORDERED: Lactated Ringer's 1,000 ML IV ONE ×2 (16:40→18:02)
[2017-02-18] MEDS ORDERED: Midazolam 2 MG/2 ML VIAL ONE (16:41)
[2017-02-18] MEDS ORDERED: Propofol 10 mg/ml Inj (20 ML) ONE (16:42)
[2017-02-18] MEDS ORDERED: ceFAZolin IV 1 gm in Dextrose 1 GM/50 ML BAG IVPB ONE (16:51)
[2017-02-19] MEDS: (Novolin R) Insulin Human Regular 100 units/ml vial SC SCH ×4 (07:40→21:22)
--- NOTE | 2017-02-19 10:38 | PCM.URO ---
Urology Progress Note - Subjective Abdominal Pain: Yes (no bm) Dysuria: Yes (retention) - Objective Lab Results Last 24 Hours: Laboratory Results - last 24 hr 02/18/17 02/18/17 02/18/17 11:21 15:26 21:03 POC Glucose (mg/dL) 118 H 114 H 161 H 02/19/17 07:13 POC Glucose (mg/dL) 90 Intake & Output: Intake & Output 02/18/17 02/19/17 02/19/17 18:59 06:59 18:59 Intake Total 640 610 Output Total 500 1300 Balance 140 -690 Intake: IV 400 Oral 240 610 Output: Urine 500 1300 Urethral (Wells) 350 1300 Other: # Bowel Movements 0 0 Vital Signs: Vital Signs - 24 hr 02/18/17 02/18/17 02/18/17 15:28 17:28 17:45 Temperature 97.7 F 97 F L Pulse Rate 120 H 112 H 102 H Respiratory 20 12 14 Rate Blood Pressure 112/66 121/61 94/63 L O2 Sat by Pulse 96 100 100 Oximetry 02/18/17 02/18/17 02/18/17 18:00 18:15 18:30 Temperature 97.4 F L Pulse Rate 100 H 105 H 109 H Respiratory 14 15 16 Rate Blood Pressure 98/65 L 106/71 109/76 O2 Sat by Pulse 100 100 100 Oximetry 02/19/17 02/19/17 02/19/17 00:00 07:35 09:12 Temperature 97.6 F 97.8 F Pulse Rate 98 H 99 H Respiratory 20 20 Rate Blood Pressure 126/82 137/73 137/73 O2 Sat by Pulse 98 96 Oximetry - Plan Advance Diet: Yes Wound Care: Yes Additional Information: n summary very pleasant gentleman who has voiding dysfunction and urinary retention he also had a paraphimosis seal the previously dictated notes he also has underlying diabetes and cancer. And he is having tremendous amount of abdominal discomfort and he has not had a bowel movement for 4 days so the plan is as follows from urology standpoint wound care and leave the Wells catheter were also awaiting a GI consult. The meantime we'll order some milk of magnesia
[2017-02-19] MEDS ORDERED: Bisacodyl 5mg EC Tab PO ONE (12:44)
--- NOTE | 2017-02-19 13:29 | CP.PCM.PN ---
Subjective - Date & Time of Evaluation Date of Evaluation: 02/19/17 Time of Evaluation: 13:29 - Subjective Subjective: EVALUATION NOTED WILL TRY A TRIAL OF LACTULOSE Objective - Vital Signs/Intake and Output Vital Signs (last 24 hours): Temp Pulse Resp BP Pulse Ox 97.8 F 99 H 20 137/73 96 02/19/17 07:35 02/19/17 07:35 02/19/17 07:35 02/19/17 09:12 02/19/17 07:35 Intake and Output: 02/19/17 02/19/17 11:59 23:59 Intake Total 360 Output Total 800 Balance -440 - Medications Medications: Current Medications Docusate Sodium (Colace) 100 mg PO BID [facility] Last Admin: 02/19/17 11:04 Dose: 100 mg Doxazosin Mesylate (Cardura) 2 mg PO DAILY [facility] Last Admin: 02/19/17 09:12 Dose: 2 mg Enalapril Maleate (Vasotec) 10 mg PO DAILY [facility] Last Admin: 02/19/17 09:12 Dose: 10 mg Finasteride (Proscar) 5 mg PO DAILY [facility] Last Admin: 02/19/17 09:12 Dose: 5 mg Insulin Human Regular (Novolin R) 0 unit SC [facility] PRN Reason: Protocol Last Admin: 02/19/17 12:29 Dose: Not Given Lactulose (Enulose) 20 gm PO HS [facility] Last Admin: 02/18/17 21:11 Dose: 20 gm Oxycodone/Acetaminophen (Percocet 5/325 Mg Tab) 1 tab PO Q6H PRN PRN Reason: Pain, moderate (4-7) Stop: 02/20/17 20:00 Last Admin: 02/18/17 00:50 Dose: 1 tab Pneumococcal Polyvalent Vaccine (Pneumovax 23 Vaccine) 0.5 ml IM .ONCE ONE Stop: 02/20/17 10:01 Tamsulosin HCl (Flomax) 0.4 mg PO DAILY [facility] Last Admin: 02/19/17 09:12 Dose: 0.4 mg - Labs Labs: PT 11.9 SECONDS (9.7-12.2) 02/17/17 12:21 INR 1.0 02/17/17 12:21 APTT 32 SECONDS (21-34) 02/17/17 12:21
--- NOTE | 2017-02-19 14:09 | CARD ---
APPROVED REPORT EKG Measurement Heart [id number] ME [id number] [id number] <Conclusion> Poor data quality, interpretation may be adversely affected Normal sinus rhythm Normal ECG
[2017-02-19] MEDS ORDERED: Mineral Oil Enema 135 ml RC ONE (16:45)
[2017-02-20] MEDS: (Novolin R) Insulin Human Regular 100 units/ml vial SC SCH ×4 (07:56→21:26)
[2017-02-20] MEDS ORDERED: Pneumococcal 23-Valent Vaccine IM ONE (10:00)
--- NOTE | 2017-02-20 13:38 | CP.PCM.PN ---
Subjective - Date & Time of Evaluation Date of Evaluation: 02/20/17 Time of Evaluation: 13:37 - Subjective Subjective: persistent constipation , all local therapy has failed Will get GI eval Objective - Vital Signs/Intake and Output Vital Signs (last 24 hours): Temp Pulse Resp BP Pulse Ox 98.1 F 91 H 20 111/76 96 02/20/17 07:36 02/20/17 07:36 02/20/17 07:36 02/20/17 10:08 02/20/17 07:36 Intake and Output: 02/20/17 02/20/17 11:59 23:59 Intake Total 480 Balance 480 - Medications Medications: Current Medications Docusate Sodium (Colace) 100 mg PO BID [facility] Last Admin: 02/20/17 10:08 Dose: 100 mg Doxazosin Mesylate (Cardura) 2 mg PO DAILY [facility] Last Admin: 02/20/17 10:08 Dose: 2 mg Enalapril Maleate (Vasotec) 10 mg PO DAILY [facility] Last Admin: 02/20/17 10:08 Dose: 10 mg Finasteride (Proscar) 5 mg PO DAILY [facility] Last Admin: 02/20/17 10:08 Dose: 5 mg Insulin Human Regular (Novolin R) 0 unit SC [facility] PRN Reason: Protocol Last Admin: 02/20/17 11:59 Dose: Not Given Lactulose (Enulose) 20 gm PO BID [facility] Tamsulosin HCl (Flomax) 0.4 mg PO DAILY [facility] Last Admin: 02/20/17 10:09 Dose: 0.4 mg - Labs Labs: PT 11.9 SECONDS (9.7-12.2) 02/17/17 12:21 INR 1.0 02/17/17 12:21 APTT 32 SECONDS (21-34) 02/17/17 12:21
--- NOTE | 2017-02-20 15:11 | CP.PCM.CON ---
<Crystal Stacy - Last Filed: 02/20/17 16:09> History of Present Illness - History of Present Illness History of Present Illness: GI Fellow PGY4 This is a 61yM with pmhx of HTN, HLD, COPD, Neurofibroma, scoliosis, rectal cancer diagnosed in October 2016 s/p chemoradiation. Pt is Serbian speaking only and a poor historian, an fitter helper was used to gather a full history. Pt was admitted for urinary retention and paraphimosis s/p circumcision and Green insertion. GI consult for constipation of 5 days, in the hospital pt has tried lactulose, colace, one time fleet enema, and one time dulcolax with no BM. Pt reports that prior to this pt has regular BM daily and denies any history of constipation. Pt reports decreased appetite due to abdominal pain that is progressively getting worse over the last 2 days. Pt deneis nausea, vomiting, melena, hematochezia. In October 2016 pt had EGD wnl, colonoscopy with ulcerated mass in distal rectum, diverticulosis, EUS showed rectal mass staged T3N0 with internal anal sphincter invasion, no lymph nodes seen. ROS: A 12 point ROS was obtained and was negative except as mentioned above. PmHx: As stated in HPI PsHx; bartolome-cath placed, partial proctectomy with proctoanal anastamosis 10/21/16 , rectal mass biopsy SHx: quit tobacco 8 years ago, previous 20 pack year history, denies alcohol or illicit drugs FHx: denies any colon or rectal cancer Review of Systems - Review of Systems Review of Systems: A 12 point ROS was obtained and was negative except as mentioned above. Past Patient History - Infectious Disease Hx of Infectious Diseases: None - Past Medical History & Family History Past Medical History?: Yes - Past Social History Smoking Status: Former Smoker - CARDIAC Hx Cardiac Disorders: Yes Hx Hypertension: Yes - PULMONARY Hx Respiratory Disorders: Yes Hx Asthma: Yes - NEUROLOGICAL Hx Neurological Disorder: No Other/Comment: poor historian vs forgetfulness - HEENT Hx HEENT Problems: No - RENAL Hx Chronic Kidney Disease: Yes - ENDOCRINE/METABOLIC Hx Endocrine Disorders: No - HEMATOLOGICAL/ONCOLOGICAL Hx Cancer: Yes (Bladder ca) Hx Human Immunodeficiency Virus (HIV): No - INTEGUMENTARY Hx Dermatological Problems: Yes Other/Comment: generalized skin lessions - MUSCULOSKELETAL/RHEUMATOLOGICAL Hx Musculoskeletal Disorders: No Hx Falls: No - GASTROINTESTINAL Hx Gastrointestinal Disorders: No Other/Comment: rectal CA - GENITOURINARY/GYNECOLOGICAL Hx Genitourinary Disorders: Yes - PSYCHIATRIC Hx Psychophysiologic Disorder: No Hx Substance Use: No - SURGICAL HISTORY Hx Surgeries: Yes Hx Herniorrhaphy: Yes - ANESTHESIA Hx Anesthesia: Yes Hx Anesthesia Reactions: No Meds Allergies/Adverse Reactions: Allergies Allergy/AdvReac Type Severity Reaction Status Date / Time No Known Allergies Allergy Verified 02/17/17 09:57 - Medications Medications: Current Medications Docusate Sodium (Colace) 100 mg PO BID [facility] Last Admin: 02/20/17 10:08 Dose: 100 mg Doxazosin Mesylate (Cardura) 2 mg PO DAILY [facility] Last Admin: 02/20/17 10:08 Dose: 2 mg Enalapril Maleate (Vasotec) 10 mg PO DAILY [facility] Last Admin: 02/20/17 10:08 Dose: 10 mg Finasteride (Proscar) 5 mg PO DAILY [facility] Last Admin: 02/20/17 10:08 Dose: 5 mg Insulin Human Regular (Novolin R) 0 unit SC [facility] PRN Reason: Protocol Last Admin: 02/20/17 11:59 Dose: Not Given Lactulose (Enulose) 20 gm PO BID [facility] Polyethylene Glycol (Miralax) 17 gm PO BID [facility] Tamsulosin HCl (Flomax) 0.4 mg PO DAILY [facility] Last Admin: 02/20/17 10:09 Dose: 0.4 mg Physical Exam - Constitutional Appears: In Acute Distress, Older Than Stated Age, Cachectic, Chronically Ill - Head Exam Head Exam: ATRAUMATIC, NORMAL INSPECTION, NORMOCEPHALIC - Eye Exam Eye Exam: EOMI, Normal appearance, PERRL. absent: Scleral icterus Pupil Exam: PERRL - ENT Exam ENT Exam: Mucous Membranes Moist, Normal Exam - Neck Exam Neck exam: Positive for: Full Rom, Normal Inspection - Respiratory Exam Respiratory Exam: Clear to Auscultation Bilateral, NORMAL BREATHING PATTERN - Cardiovascular Exam Cardiovascular Exam: RRR, +S1, +S2 - GI/Abdominal Exam GI & Abdominal Exam: Normal Bowel Sounds, Soft, Tenderness. absent: Distended, Organomegaly - Rectal Exam Additional comments: No stool in rectal vault, fibrosis/scar tissue with narrowing of rectum, pain on exam no melena or hematochezia - Exam Exam: Circumcision Additional comments: s/p circumcision with penile dressing intact, Green in place - Extremities Exam Extremities exam: Positive for: full ROM - Back Exam Additional comments: Severe scoliosis - Neurological Exam Neurological exam: Alert, Oriented x3 - Psychiatric Exam Psychiatric exam: Anxious, Normal Affect - Skin Skin Exam: Dry, Intact, Normal Color, Warm Additional comments: neurofibromas diffusely Results - Vital Signs Recent Vital Signs: Last Vital Signs Temp 98.1 F 02/20/17 07:36 Pulse 91 H 02/20/17 07:36 Resp 20 02/20/17 07:36 BP 111/76 02/20/17 10:08 Pulse Ox 96 02/20/17 07:36 - Labs Result Diagrams: 02/17/17 11:45 02/17/17 11:45 Labs: Laboratory Results - last 24 hr 02/19/17 02/19/17 02/20/17 15:58 21:15 07:10 POC Glucose (mg/dL) 115 H 137 H 92 02/20/17 11:19 POC Glucose (mg/dL) 123 H Assessment & Plan - Assessment and Plan (Free Text) Assessment: This is a 61yM with pmhx of neurofibroma, HTN, HLD, rectal cancer s/p chemoradiation, pw with urinary retention and paraphimosis s/p circumcision, green insertion now having abdominal pain and no BM in 5days. 1. Rectal Cancer 2. Urinary retention s/p green 3. Paraphimosis- s/p circumcision 4. Abdominal Pain 5. Constipation Plan: -Abdominal pain with constipation-will order stat abdominal flat plate, no fecal impaction on rectal exam will order imaging for better evaluation. -Monitor green and urine output as green maybe causing abdominal pain. -Bowel regimen with addition of miralax, continue colace and lactulose, will add anusol -If Abdominal xray negative and still having abdominal pain tomorrow with no BM will order CTA/P for better evaluation -Change to a full liquid diet at this time -Pain control per primary team -Hx of rectal cancer, continue outpatient followup <Jay Mobley - Last Filed: 02/20/17 18:43> Meds - Medications Medications: Current Medications Docusate Sodium (Colace) 100 mg PO BID [facility] Last Admin: 02/20/17 17:18 Dose: 100 mg Doxazosin Mesylate (Cardura) 2 mg PO DAILY [facility] Last Admin: 02/20/17 10:08 Dose: 2 mg Enalapril Maleate (Vasotec) 10 mg PO DAILY [facility] Last Admin: 02/20/17 10:08 Dose: 10 mg Finasteride (Proscar) 5 mg PO DAILY [facility] Last Admin: 02/20/17 10:08 Dose: 5 mg Hydrocortisone (Anusol-Hc) 25 mg [place] BID [facility] Last Admin: 02/20/17 17:18 Dose: 25 mg Insulin Human Regular (Novolin R) 0 unit SC [facility] PRN Reason: Protocol Last Admin: 02/20/17 16:47 Dose: Not Given Lactulose (Enulose) 20 gm PO BID [facility] Last Admin: 02/20/17 17:17 Dose: 20 gm Polyethylene Glycol (Miralax) 17 gm PO BID [facility] Last Admin: 02/20/17 17:18 Dose: 17 gm Tamsulosin HCl (Flomax) 0.4 mg PO DAILY [facility] Last Admin: 02/20/17 10:09 Dose: 0.4 mg Results - Vital Signs Recent Vital Signs: Last Vital Signs Temp 98.0 F 02/20/17 16:00 Pulse 90 02/20/17 16:00 Resp 20 02/20/17 16:00 BP 115/72 02/20/17 16:00 Pulse Ox 97 02/20/17 16:00 - Labs Result Diagrams: 02/17/17 11:45 02/17/17 11:45 Labs: Laboratory Results - last 24 hr 02/19/17 02/20/17 02/20/17 21:15 07:10 11:19 POC Glucose (mg/dL) 137 H 92 123 H 02/20/17 16:14 POC Glucose (mg/dL) 110 Attending/Attestation - Attestation I have personally seen and examined this patient.: Yes I have fully participated in the care of the patient.: Yes I have reviewed all pertinent clinical information: Yes Notes (Text): 02/20/17 18:35 I have seen and examined patient with GI fellow. Agree with above documentation with the following additions. In brief, this is a 61 year old male with history of HTN, COPD, neurofibromatosis, scoliosis, rectal cancer diagnosed in October 2016 s/p chemoradiation who presents to hospital with complaint of urinary retention and paraphimosis. GI called for evaluation of abdominal pain suspected to be secondary to constipation. Prior to hospitalization patient did not have any constipation symptoms and would typically have regular bowel movements. For the past 4 days he has not been able to have a bowel movement and has developed progressively worse abdominal pain located in nahid-umbilical region. He reports loss of appetite due to the abdominal discomfort. He has tried oral laxative and enema use without significant benefit. He currently has an indwelling green catheter which was placed secondary to urine retention. COPD HTN Neurofibromatosis Scoliosis History of rectal cancer s/p chemo and radiation therapy Abdominal pain - Rectal examination performed today did reveal increased anal sphincter tone with tenderness on VLADISLAV, prior lesion with invasion into sphincter, no stool or blood present in rectal vault - Diet as tolerated - Obtain abdominal XR to assess for bowel dilation, fecal retention - Suggest close monitoring of urine output, suspect that green catheter may also be contributing to new onset abdominal pain. Patient without prior history of constipation. - Bowel regimen to prevent constipation - If symptoms persist despite conservative management, would consider CT imaging for further evaluation - Will continue to monitor patient clinical course
--- NOTE | 2017-02-20 16:15 | RAD ---
HISTORY: abdominal pain, no bowel movement COMPARISON: No prior. FINDINGS: BOWEL: Mild stool presence. No obstruction. BONES: Severe scoliosis and osteopenia OTHER FINDINGS: Apparent catheter or tubing over pelvis IMPRESSION: No bowel obstruction. No marked stool retention seen
[2017-02-20] MEDS ORDERED: POLYETHYLENE GLYCOL 3350 17 GM/Dose PACKET PO SCH (18:00)
[2017-02-20] MEDS ORDERED: Oxycodone/Acetaminophen 5/325 mg Tab PO STA (23:01)
[2017-02-21 06:23] LABS: BASO % 0.7 % (0.0-2.0); EOS # 0.1 K/uL (0.0-0.7); EOS % 0.9 % (0.0-4.0); HEMATOCRIT 41.4 % (35.0-51.0); LYMPH # 1.2 K/uL (1.0-4.3); LYMPH % 18.6 % (20.0-40.0); MEAN CELL VOLUME 88.7 fL (80.0-94.0); MEAN CORPUSCULAR HEMOGLOBIN 30.1 pg (27.0-31.0); MEAN PLATELET VOLUME 6.1 fL (7.2-11.7); MONO # 0.8 K/uL (0.0-0.8); MONO % 11.9 % (0.0-10.0); RED CELL DISTRIBUTION WIDTH 13.3 % (11.5-14.5); WHITE BLOOD COUNT 6.6 K/uL (4.8-10.8)
[2017-02-21 06:43] LABS: BLOOD UREA NITROGEN 8 mg/dL (9-20); CALCIUM 8.9 mg/dl (8.6-10.4); CARBON DIOXIDE 31 mmol/L (22-30); CHLORIDE 93 mmol/L (98-107); GFR AFRICAN-AMERICAN > 60; GLUCOSE,RANDOM 88 mg/dL (75-110); POTASSIUM 3.8 mmol/L (3.6-5.2); SODIUM 133 mmol/L (132-148)
[2017-02-21] MEDS: (Novolin R) Insulin Human Regular 100 units/ml vial SC SCH ×4 (08:19→21:13)
--- NOTE | 2017-02-21 08:42 | CP.PCM.PN ---
<Crystal Stacy - Last Filed: 02/21/17 09:45> Subjective - Date & Time of Evaluation Date of Evaluation: 02/21/17 Time of Evaluation: 06:00 - Subjective Subjective: GI Fellow PGY4 Progress Note Pt seen and evaluated at beside, still complaining of abdominal pain and concerned about no BM is 6 days. Per nursing reported some liquid stool leakeage per rectum. Pt reports issues in the past with straining with BM. Pt tolerating liquid diet. Per nursing pt having good urine outpt with green. ROS: A 12 pt ROS was obtained and was negative except as mentioned above. Objective - Vital Signs/Intake and Output Vital Signs (last 24 hours): Temp Pulse Resp BP Pulse Ox 97.5 F L 76 20 122/80 100 02/21/17 07:35 02/21/17 07:35 02/21/17 07:35 02/21/17 07:35 02/21/17 07:35 Intake and Output: 02/21/17 02/21/17 06:59 18:59 Intake Total 760 Output Total 1400 Balance -640 - Medications Medications: Current Medications Bisacodyl (Dulcolax) 10 mg [place] BID [facility] Doxazosin Mesylate (Cardura) 2 mg PO DAILY [facility] Last Admin: 02/20/17 10:08 Dose: 2 mg Enalapril Maleate (Vasotec) 10 mg PO DAILY [facility] Last Admin: 02/20/17 10:08 Dose: 10 mg Finasteride (Proscar) 5 mg PO DAILY [facility] Last Admin: 02/20/17 10:08 Dose: 5 mg Hydrocortisone (Anusol-Hc) 25 mg SD BID [facility] Last Admin: 02/20/17 17:18 Dose: 25 mg Insulin Human Regular (Novolin R) 0 unit SC [facility] PRN Reason: Protocol Last Admin: 02/21/17 08:19 Dose: Not Given Polyethylene Glycol (Miralax) 17 gm PO QID [facility] Tamsulosin HCl (Flomax) 0.4 mg PO DAILY [facility] Last Admin: 02/20/17 10:09 Dose: 0.4 mg - Labs Labs: 02/21/17 06:16 02/21/17 06:16 PT 11.9 SECONDS (9.7-12.2) 02/17/17 12:21 INR 1.0 02/17/17 12:21 APTT 32 SECONDS (21-34) 02/17/17 12:21 - Constitutional Appears: Non-toxic, No Acute Distress, Cachectic, Chronically Ill - Head Exam Head Exam: NORMAL INSPECTION, NORMOCEPHALIC - Eye Exam Eye Exam: EOMI, Normal appearance, PERRL Pupil Exam: PERRL - ENT Exam ENT Exam: Mucous Membranes Moist, Normal Exam - Neck Exam Neck Exam: Normal Inspection - Respiratory Exam Respiratory Exam: Clear to Ausculation Bilateral, NORMAL BREATHING PATTERN - Cardiovascular Exam Cardiovascular Exam: RRR, +S1, +S2 - GI/Abdominal Exam GI & Abdominal Exam: Soft, Normal Bowel Sounds Additional comments: Mild TTP lower abdomen - Rectal Exam Rectal Exam: Deferred - Exam Exam: Circumcision - Extremities Exam Extremities Exam: Full ROM, Normal Inspection. absent: Pedal Edema - Back Exam Additional comments: Severe scoliosis - Neurological Exam Neurological Exam: Alert, Awake, Oriented x3 - Psychiatric Exam Psychiatric exam: Anxious, Normal Affect - Skin Additional comments: Neurofibromas Assessment and Plan - Assessment and Plan (Free Text) Assessment: This is a 61yM with pmhx of neurofibroma, HTN, HLD, rectal cancer s/p chemoradiation, pw with urinary retention and paraphimosis s/p circumcision, green insertion now having abdominal pain and no BM in 6days. 1. Rectal Cancer 2. Urinary retention s/p green 3. Paraphimosis- s/p circumcision 4. Abdominal Pain 5. Constipation Plan: -Abdominal pain with constipation-abdominal flat plate with mild stool and no fecal impaction on imaging and rectal exam. Pt will need aggressive bowel regimen with miralx four times a day, dulcolax suppository bid, and fleet enema. -Will dc lactulose and colace. -Pt had a recent CT A/P in January that was negative, no plan for further imaging at this time, trial of bowel regimen. -Monitor green and urine output as green maybe causing abdominal pain. -Continue a full liquid diet at this time. -Pain control per primary team. -Hx of rectal cancer, continue outpatient followup. <Guido Anthony - Last Filed: 02/21/17 19:11> Objective - Vital Signs/Intake and Output Vital Signs (last 24 hours): Temp Pulse Resp BP Pulse Ox 98.0 F 91 H 20 144/91 H 97 02/21/17 15:00 02/21/17 15:00 02/21/17 15:00 02/21/17 15:00 02/21/17 15:00 Intake and Output: 02/21/17 02/22/17 18:59 06:59 Intake Total 600 Output Total 800 Balance -200 - Medications Medications: Current Medications Bisacodyl (Dulcolax) 10 mg SD BID [facility] Last Admin: 02/21/17 11:58 Dose: 10 mg Doxazosin Mesylate (Cardura) 2 mg PO DAILY [facility] Last Admin: 02/21/17 11:58 Dose: 2 mg Enalapril Maleate (Vasotec) 10 mg PO DAILY [facility] Last Admin: 02/21/17 11:59 Dose: 10 mg Finasteride (Proscar) 5 mg PO DAILY [facility] Last Admin: 02/21/17 11:58 Dose: 5 mg Hydrocortisone (Anusol-Hc) 25 mg SD BID [facility] Last Admin: 02/21/17 17:25 Dose: 25 mg Insulin Human Regular (Novolin R) 0 unit SC [facility] PRN Reason: Protocol Last Admin: 02/21/17 17:26 Dose: Not Given Polyethylene Glycol (Miralax) 17 gm PO QID [facility] Last Admin: 02/21/17 17:25 Dose: 17 gm Tamsulosin HCl (Flomax) 0.4 mg PO DAILY [facility] Last Admin: 02/21/17 11:58 Dose: 0.4 mg - Labs Labs: 02/21/17 06:16 02/21/17 06:16 PT 11.9 SECONDS (9.7-12.2) 02/17/17 12:21 INR 1.0 02/17/17 12:21 APTT 32 SECONDS (21-34) 02/17/17 12:21 Attending/Attestation - Attestation I have personally seen and examined this patient.: Yes I have fully participated in the care of the patient.: Yes I have reviewed all pertinent clinical information, including history, physical exam and plan: Yes Notes (Text): 02/21/17 19:07 61yM with pmhx of neurofibroma, HTN, HLD, rectal cancer s/p chemoradiation, pw with urinary retention and paraphimosis s/p circumcision, green insertion now having abdominal pain and no BM in 6days. 1. Rectal Cancer 2. Constipation 3. Abdominal pain Plan: -Patient with rectal ca s/p chemo and xrt -admitted with severe constipation associated with abdominal pain -CT 1 month ago reviewed -recommend bowel regiment with enemas / suppositories / miralax as above -reassess tomorrow -liquid diet
[2017-02-21] MEDS: POLYETHYLENE GLYCOL 3350 17 GM/Dose PACKET PO SCH ×4 (11:57→21:13)
--- NOTE | 2017-02-21 13:21 | CP.PCM.PN ---
Subjective - Date & Time of Evaluation Date of Evaluation: 02/21/17 Time of Evaluation: 13:20 - Subjective Subjective: NO SOLID BM MILD ABD PAIN GI EVAL NOTED AGGRESSIVE [employer] THERAPY Objective - Vital Signs/Intake and Output Vital Signs (last 24 hours): Temp Pulse Resp BP Pulse Ox 97.5 F L 76 20 127/73 100 02/21/17 07:35 02/21/17 07:35 02/21/17 07:35 02/21/17 11:59 02/21/17 07:35 Intake and Output: 02/21/17 02/21/17 11:59 23:59 Intake Total 360 Output Total 600 Balance -240 - Medications Medications: Current Medications Bisacodyl (Dulcolax) 10 mg [place] BID [facility] Last Admin: 02/21/17 11:58 Dose: 10 mg Doxazosin Mesylate (Cardura) 2 mg PO DAILY [facility] Last Admin: 02/21/17 11:58 Dose: 2 mg Enalapril Maleate (Vasotec) 10 mg PO DAILY [facility] Last Admin: 02/21/17 11:59 Dose: 10 mg Finasteride (Proscar) 5 mg PO DAILY [facility] Last Admin: 02/21/17 11:58 Dose: 5 mg Hydrocortisone (Anusol-Hc) 25 mg [place] BID [facility] Last Admin: 02/20/17 17:18 Dose: 25 mg Insulin Human Regular (Novolin R) 0 unit SC [facility] PRN Reason: Protocol Last Admin: 02/21/17 12:00 Dose: Not Given Polyethylene Glycol (Miralax) 17 gm PO QID [facility] Last Admin: 02/21/17 11:57 Dose: 17 gm Tamsulosin HCl (Flomax) 0.4 mg PO DAILY [facility] Last Admin: 02/21/17 11:58 Dose: 0.4 mg - Labs Labs: 02/21/17 06:16 02/21/17 06:16 PT 11.9 SECONDS (9.7-12.2) 02/17/17 12:21 INR 1.0 02/17/17 12:21 APTT 32 SECONDS (21-34) 02/17/17 12:21
--- NOTE | 2017-02-21 14:01 | PCM.URO ---
Urology Progress Note - General General: No Complaints, Tolerating Diet - Subjective Abdominal Pain: No Voiding Well: No (green catheter in place) Hematuria: No Chest Pain: No Fever & Chills: No - Objective Lab Results Last 24 Hours: Laboratory Results - last 24 hr 02/20/17 02/20/17 02/21/17 16:14 21:00 06:16 WBC 6.6 RBC 4.66 Hgb 14.0 Hct 41.4 MCV 88.7 MCH 30.1 MCHC 34.0 RDW 13.3 Plt Count 262 MPV 6.1 L Neut % (Auto) 67.9 Lymph % (Auto) 18.6 L [place] % (Auto) 11.9 H Eos % (Auto) 0.9 Baso % (Auto) 0.7 Neut # 4.5 Lymph # 1.2 [place] # 0.8 Eos # 0.1 Baso # 0.0 Sodium Potassium Chloride Carbon Dioxide Anion Gap BUN Creatinine Est GFR ( Amer) Est GFR (Non-Af Amer) POC Glucose (mg/dL) 110 125 H Random Glucose Calcium 02/21/17 02/21/17 02/21/17 06:16 07:10 11:24 WBC RBC Hgb Hct MCV MCH MCHC RDW Plt Count MPV Neut % (Auto) Lymph % (Auto) [place] % (Auto) Eos % (Auto) Baso % (Auto) Neut # Lymph # [place] # Eos # Baso # Sodium 133 Potassium 3.8 Chloride 93 L Carbon Dioxide 31 H Anion Gap 13 BUN 8 L Creatinine 0.6 L Est GFR ( Amer) > 60 Est GFR (Non-Af Amer) > 60 POC Glucose (mg/dL) 90 97 Random Glucose 88 Calcium 8.9 Intake & Output: Intake & Output 02/20/17 02/21/17 02/21/17 18:59 06:59 18:59 Intake Total 760 Output Total 450 1400 Balance -450 -640 Intake: Oral 760 Output: Urine 450 1400 Urethral (Green) 450 1400 Other: # Voids Urethral (Green) 3 # Bowel Movements 1 Vital Signs: Vital Signs - 24 hr 02/20/17 02/21/17 02/21/17 16:00 00:00 07:35 Temperature 98.0 F 98.4 F 97.5 F L Pulse Rate 90 77 76 Respiratory 20 20 20 Rate Blood Pressure 115/72 136/72 122/80 O2 Sat by Pulse 97 99 100 Oximetry 02/21/17 11:59 Temperature Pulse Rate Respiratory Rate Blood Pressure 127/73 O2 Sat by Pulse Oximetry - Physical Exam Abdominal Exam: Soft, Non-Tender Dressing: Dry, Intact Back: No CVA Tenderness Urinary Catheter Draining Well: Yes Urine Color: Clear, Yellow - Male Scrotum: Normal - Plan Additional Information: Imp: stable post circumcision, comfortable - Date & Time of Note Date: 02/21/17 Time: 10:05
[2017-02-22] MEDS: (Novolin R) Insulin Human Regular 100 units/ml vial SC SCH ×4 (07:43→21:30)
[2017-02-22] MEDS: POLYETHYLENE GLYCOL 3350 17 GM/Dose PACKET PO SCH ×4 (11:11→21:40)
--- NOTE | 2017-02-22 11:32 | CP.PCM.PN ---
<Miguel Angel Ibanez - Last Filed: 02/22/17 11:28> Subjective - Date & Time of Evaluation Date of Evaluation: 02/22/17 Time of Evaluation: 11:28 - Subjective Subjective: PGY5 GI Fellow Progress Note Patient seen and examined bedside this morning. The patient states that he continues to have abdominal pain. Took suppositories and is slowly drinking miralax. No events overnight. No BM thusfar. 12 system ROS performed and negative except where stated. Objective - Vital Signs/Intake and Output Vital Signs (last 24 hours): Temp Pulse Resp BP Pulse Ox 97.5 F L 104 H 20 135/91 H 97 02/22/17 08:21 02/22/17 08:21 02/22/17 08:21 02/22/17 10:26 02/22/17 08:21 Intake and Output: 02/22/17 02/22/17 06:59 18:59 Intake Total 240 Output Total 400 Balance -160 - Medications Medications: Current Medications Bisacodyl (Dulcolax) 10 mg [place] BID [facility] Last Admin: 02/22/17 10:26 Dose: 10 mg Doxazosin Mesylate (Cardura) 2 mg PO DAILY [facility] Last Admin: 02/22/17 10:26 Dose: 2 mg Enalapril Maleate (Vasotec) 10 mg PO DAILY [facility] Last Admin: 02/22/17 10:26 Dose: 10 mg Finasteride (Proscar) 5 mg PO DAILY [facility] Last Admin: 02/22/17 10:26 Dose: 5 mg Hydrocortisone (Anusol-Hc) 25 mg [place] BID [facility] Last Admin: 02/22/17 11:11 Dose: 25 mg Insulin Human Regular (Novolin R) 0 unit SC [facility] PRN Reason: Protocol Last Admin: 02/22/17 07:43 Dose: Not Given Polyethylene Glycol (Miralax) 17 gm PO QID [facility] Last Admin: 02/22/17 11:11 Dose: 17 gm Tamsulosin HCl (Flomax) 0.4 mg PO DAILY [facility] Last Admin: 02/22/17 10:26 Dose: 0.4 mg - Labs Labs: 02/21/17 06:16 02/21/17 06:16 PT 11.9 SECONDS (9.7-12.2) 02/17/17 12:21 INR 1.0 02/17/17 12:21 APTT 32 SECONDS (21-34) 02/17/17 12:21 - Constitutional Appears: Cachectic - Eye Exam Eye Exam: EOMI, PERRL - ENT Exam ENT Exam: Mucous Membranes Dry - Respiratory Exam Respiratory Exam: Clear to Ausculation Bilateral. absent: Rales, Rhonchi, Wheezes - Cardiovascular Exam Cardiovascular Exam: Tachycardia, REGULAR RHYTHM, +S1, +S2 - GI/Abdominal Exam GI & Abdominal Exam: Soft, Tenderness, Normal Bowel Sounds. absent: Distended, Firm, Guarding, Rigid, Organomegaly - Extremities Exam Extremities Exam: Normal Inspection. absent: Pedal Edema - Neurological Exam Neurological Exam: Alert, Awake, Oriented x3 - Psychiatric Exam Psychiatric exam: Anxious, Normal Affect - Skin Skin Exam: Dry, Warm Assessment and Plan - Assessment and Plan (Free Text) Assessment: Patient is a 61yo male with PMHx significant for neurofibroma, HTN, HLD, rectal cancer s/p chemoradiation who presented with urinary retention and paraphimosis s/p circumcision, green insertion now having abdominal pain and no BM for approximately 1 week. -Rectal Cancer -Constipation -Abdominal pain 2/2 above Plan: -Patient has had multiple CT A/P in the past 90 days; reviewed -Continue with bowel regimen: Miralax QID, Dulcolax supp; recommend mineral oil enema/tap water enemas as well -If pt refusing enemas can consider bowel cleanse with GoLytely -Liquid diet -Continue to monitor clinical condition <Aislinn PAPPAS,Laney - Last Filed: 02/22/17 16:25> Objective - Vital Signs/Intake and Output Vital Signs (last 24 hours): Temp Pulse Resp BP Pulse Ox 98.6 F 95 H 20 110/69 96 02/22/17 15:00 02/22/17 15:00 02/22/17 15:00 02/22/17 15:00 02/22/17 15:00 Intake and Output: 02/22/17 02/22/17 06:59 18:59 Intake Total 240 500 Output Total 400 1000 Balance -160 -500 - Medications Medications: Current Medications Bisacodyl (Dulcolax) 10 mg [place] BID [facility] Last Admin: 02/22/17 10:26 Dose: 10 mg Doxazosin Mesylate (Cardura) 2 mg PO DAILY [facility] Last Admin: 02/22/17 10:26 Dose: 2 mg Enalapril Maleate (Vasotec) 10 mg PO DAILY [facility] Last Admin: 02/22/17 10:26 Dose: 10 mg Finasteride (Proscar) 5 mg PO DAILY [facility] Last Admin: 02/22/17 10:26 Dose: 5 mg Hydrocortisone (Anusol-Hc) 25 mg [place] BID [facility] Last Admin: 02/22/17 11:11 Dose: 25 mg Insulin Human Regular (Novolin R) 0 unit [place] [facility] PRN Reason: Protocol Last Admin: 02/22/17 12:00 Dose: Not Given Polyethylene Glycol (Miralax) 17 gm PO QID [facility] Last Admin: 02/22/17 14:17 Dose: 17 gm Tamsulosin HCl (Flomax) 0.4 mg PO DAILY [facility] Last Admin: 02/22/17 10:26 Dose: 0.4 mg - Labs Labs: 02/21/17 06:16 02/21/17 06:16 PT 11.9 SECONDS (9.7-12.2) 02/17/17 12:21 INR 1.0 02/17/17 12:21 APTT 32 SECONDS (21-34) 02/17/17 12:21 Attending/Attestation - Attestation I have personally seen and examined this patient.: Yes I have fully participated in the care of the patient.: Yes I have reviewed all pertinent clinical information, including history, physical exam and plan: Yes Notes (Text): 02/22/17 16:22 Patient seen with GI fellow on rounds. This is a 61 yr old with pmhx of neurofibroma, HTN, HLD, rectal cancer s/p chemoradiation, pw with urinary retention and paraphimosis s/p circumcision, green insertion now having abdominal pain and no BM in several days although there was some liquid stool as per nurses. Continue rigorous bowel regimen with enemas and miralax. Diet as tolerated. No s/s of bowel obstruction
--- NOTE | 2017-02-22 13:49 | CP.PCM.PN ---
Subjective - Date & Time of Evaluation Date of Evaluation: 02/22/17 Time of Evaluation: 13:48 - Subjective Subjective: NO BM OF SIGNIFICANT AMOUNT BUT PT IS NOT FOLLOWING THE PROTOCOL PER GI OUTLINED MAY D/C HOME MON Objective - Vital Signs/Intake and Output Vital Signs (last 24 hours): Temp Pulse Resp BP Pulse Ox 97.5 F L 104 H 20 135/91 H 97 02/22/17 08:21 02/22/17 08:21 02/22/17 08:21 02/22/17 10:26 02/22/17 08:21 Intake and Output: 02/22/17 02/22/17 11:59 23:59 Intake Total 240 Output Total 400 Balance -160 - Medications Medications: Current Medications Bisacodyl (Dulcolax) 10 mg [place] BID [facility] Last Admin: 02/22/17 10:26 Dose: 10 mg Doxazosin Mesylate (Cardura) 2 mg PO DAILY [facility] Last Admin: 02/22/17 10:26 Dose: 2 mg Enalapril Maleate (Vasotec) 10 mg PO DAILY [facility] Last Admin: 02/22/17 10:26 Dose: 10 mg Finasteride (Proscar) 5 mg PO DAILY [facility] Last Admin: 02/22/17 10:26 Dose: 5 mg Hydrocortisone (Anusol-Hc) 25 mg [place] BID [facility] Last Admin: 02/22/17 11:11 Dose: 25 mg Insulin Human Regular (Novolin R) 0 unit SC [facility]S [facility] PRN Reason: Protocol Last Admin: 02/22/17 12:00 Dose: Not Given Mineral Oil (Fleet Mineral Oil Enema) 135 ml RC ONCE ONE Stop: 02/22/17 14:31 Polyethylene Glycol (Miralax) 17 gm PO QID [facility] Last Admin: 02/22/17 11:11 Dose: 17 gm Tamsulosin HCl (Flomax) 0.4 mg PO DAILY [facility] Last Admin: 02/22/17 10:26 Dose: 0.4 mg - Labs Labs: 02/21/17 06:16 02/21/17 06:16 PT 11.9 SECONDS (9.7-12.2) 02/17/17 12:21 INR 1.0 02/17/17 12:21 APTT 32 SECONDS (21-34) 02/17/17 12:21
[2017-02-22] MEDS ORDERED: Mineral Oil Enema 135 ml RC ONE (14:30)
[2017-02-23] MEDS ORDERED: Peg-Electrolyte Oral Soln 4L (Golytely) PO ONE (08:09)
[2017-02-23] MEDS: (Novolin R) Insulin Human Regular 100 units/ml vial SC SCH ×4 (08:31→22:12)
--- NOTE | 2017-02-23 09:26 | CP.PCM.PN ---
<Miguel Angel Ibanez - Last Filed: 02/23/17 13:08> Subjective - Date & Time of Evaluation Date of Evaluation: 02/23/17 Time of Evaluation: 09:23 - Subjective Subjective: PGY5 GI Fellow Progress Note Patient seen and examined bedside this morning. The patient admits to continued abdominal distention. States he still has not had a BM despite our interventions. No nausea, vomiting, fever, chills. 12 system ROS performed and negative except where stated. Objective - Vital Signs/Intake and Output Vital Signs (last 24 hours): Temp Pulse Resp BP Pulse Ox 97.8 F 85 20 136/81 98 02/23/17 08:45 02/23/17 08:45 02/23/17 08:45 02/23/17 08:45 02/23/17 08:45 Intake and Output: 02/23/17 02/23/17 06:59 18:59 Intake Total 720 Output Total 1010 Balance -290 - Medications Medications: Current Medications Bisacodyl (Dulcolax) [address] BID [facility] Last Admin: 02/22/17 17:50 Dose: 10 mg Doxazosin Mesylate (Cardura) 2 mg PO DAILY [facility] Last Admin: 02/22/17 10:26 Dose: 2 mg Enalapril Maleate (Vasotec) 10 mg PO DAILY [facility] Last Admin: 02/22/17 10:26 Dose: 10 mg Finasteride (Proscar) 5 mg PO DAILY [facility] Last Admin: 02/22/17 10:26 Dose: 5 mg Hydrocortisone (Anusol-Hc) [address] BID [facility] Last Admin: 02/22/17 17:50 Dose: 25 mg Insulin Human Regular (Novolin R) 0 unit SC [facility] PRN Reason: Protocol Last Admin: 02/23/17 08:31 Dose: Not Given Polyethylene Glycol (Miralax) 17 gm PO QID [facility] Last Admin: 02/22/17 21:40 Dose: 17 gm Tamsulosin HCl (Flomax) 0.4 mg PO DAILY [facility] Last Admin: 02/22/17 10:26 Dose: 0.4 mg - Labs Labs: 02/21/17 06:16 02/21/17 06:16 PT 11.9 SECONDS (9.7-12.2) 02/17/17 12:21 INR 1.0 02/17/17 12:21 APTT 32 SECONDS (21-34) 02/17/17 12:21 - Constitutional Appears: Non-toxic, No Acute Distress - Eye Exam Eye Exam: EOMI, PERRL - ENT Exam ENT Exam: Mucous Membranes Moist - Respiratory Exam Respiratory Exam: Clear to Ausculation Bilateral. absent: Rales, Rhonchi, Wheezes - Cardiovascular Exam Cardiovascular Exam: RRR, +S1, +S2 - GI/Abdominal Exam GI & Abdominal Exam: Distended, Soft, Tenderness, Normal Bowel Sounds. absent: Firm, Guarding, Rigid, Organomegaly - Extremities Exam Extremities Exam: Normal Inspection. absent: Pedal Edema - Neurological Exam Neurological Exam: Alert, Awake, Oriented x3 - Psychiatric Exam Psychiatric exam: Normal Affect, Normal Mood - Skin Skin Exam: Dry, Warm Assessment and Plan - Assessment and Plan (Free Text) Assessment: Patient is a 61yo male with PMHx significant for neurofibroma, HTN, HLD, rectal cancer s/p chemoradiation who presented with urinary retention and paraphimosis s/p circumcision, green insertion now having abdominal pain and no BM for approximately 1 week. -Rectal Cancer -Constipation -Abdominal pain 2/2 above Plan: -Repeat abdominal flat plate today -Start GoLytelt 2L bowel cleanse -Continue with Miralax QID and Dulcolax (change to PO) as ordered -Can perform tap water enemas up to Q1H -Liquid diet -Continue to monitor clinical condition <Laney Tao MD - Last Filed: 02/23/17 13:29> Objective - Vital Signs/Intake and Output Vital Signs (last 24 hours): Temp Pulse Resp BP Pulse Ox 97.8 F 85 20 136/81 98 02/23/17 08:45 02/23/17 08:45 02/23/17 08:45 02/23/17 09:51 02/23/17 08:45 Intake and Output: 02/23/17 02/23/17 06:59 18:59 Intake Total 720 Output Total 1010 Balance -290 - Medications Medications: Current Medications Bisacodyl (Dulcolax) 10 mg PO DAILY [facility] Stop: 02/26/17 10:01 Last Admin: 02/23/17 12:52 Dose: 10 mg Doxazosin Mesylate (Cardura) 2 mg PO DAILY [facility] Last Admin: 02/23/17 09:51 Dose: 2 mg Enalapril Maleate (Vasotec) 10 mg PO DAILY [facility] Last Admin: 02/23/17 09:51 Dose: 10 mg Finasteride (Proscar) 5 mg PO DAILY [facility] Last Admin: 02/23/17 09:49 Dose: 5 mg Hydrocortisone (Anusol-Hc) [address] [facility] Last Admin: 02/23/17 09:46 Dose: 25 mg Insulin Human Regular (Novolin R) 0 unit [place] ACHS [facility] PRN Reason: Protocol Last Admin: 02/23/17 11:50 Dose: Not Given Polyethylene Glycol (Miralax) 17 gm PO QID [facility] Last Admin: 02/23/17 09:48 Dose: 17 gm Tamsulosin HCl (Flomax) 0.4 mg PO DAILY [facility] Last Admin: 02/23/17 09:51 Dose: 0.4 mg - Labs Labs: 02/21/17 06:16 02/21/17 06:16 PT 11.9 SECONDS (9.7-12.2) 02/17/17 12:21 INR 1.0 02/17/17 12:21 APTT 32 SECONDS (21-34) 02/17/17 12:21 Attending/Attestation - Attestation I have personally seen and examined this patient.: Yes I have fully participated in the care of the patient.: Yes I have reviewed all pertinent clinical information, including history, physical exam and plan: Yes Notes (Text): 02/23/17 13:28 Patient seen with GI fellow on rounds. This is a 61 yr old with pmhx of neurofibroma, HTN, HLD, rectal cancer s/p chemoradiation, pw with urinary retention and paraphimosis s/p circumcision, green insertion now having abdominal pain and no BM in several days although there was some liquid stool as per nurses. Continue rigorous bowel regimen with enemas and miralax. Diet as tolerated. No s/s of bowel obstruction. Will add Golytely today
[2017-02-23] MEDS: POLYETHYLENE GLYCOL 3350 17 GM/Dose PACKET PO SCH ×4 (09:48→21:23)
--- NOTE | 2017-02-23 11:53 | RAD ---
HISTORY: abdominal pain COMPARISON: Comparison is made to previous study dated 02/20/2017 FINDINGS: BOWEL: Normal. No obstruction. No free air. BONES: Scoliosis and degenerative changes are again seen. OTHER FINDINGS: Wells catheter extending to the bladder is again noted. IMPRESSION: No significant interval change. No radiographic evidence of high-grade bowel obstruction.
[2017-02-23] MEDS: Bisacodyl 5mg EC Tab PO SCH (12:52)
--- NOTE | 2017-02-23 15:15 | CP.PCM.PN ---
Subjective - Date & Time of Evaluation Date of Evaluation: 02/23/17 Time of Evaluation: 15:14 - Subjective Subjective: CONTINUES TO HAVE CONSTIPATION WITH ABD PAIN HAD CT ABD IN 01/25 IN [facility]. SHOWED DIVERTICULITIS WILL REPEAT CT ABD Objective - Vital Signs/Intake and Output Vital Signs (last 24 hours): Temp Pulse Resp BP Pulse Ox 97.8 F 85 20 136/81 98 02/23/17 08:45 02/23/17 08:45 02/23/17 08:45 02/23/17 09:51 02/23/17 08:45 Intake and Output: 02/23/17 02/23/17 11:59 23:59 Intake Total 240 1500 Output Total 410 1300 Balance -170 200 - Medications Medications: Current Medications Bisacodyl (Dulcolax) 10 mg PO DAILY [facility] Stop: 02/26/17 10:01 Last Admin: 02/23/17 12:52 Dose: 10 mg Doxazosin Mesylate (Cardura) 2 mg PO DAILY [facility] Last Admin: 02/23/17 09:51 Dose: 2 mg Enalapril Maleate (Vasotec) 10 mg PO DAILY [facility] Last Admin: 02/23/17 09:51 Dose: 10 mg Finasteride (Proscar) 5 mg PO DAILY [facility] Last Admin: 02/23/17 09:49 Dose: 5 mg Hydrocortisone (Anusol-Hc) 25 mg [place] BID [facility] Last Admin: 02/23/17 09:46 Dose: 25 mg Insulin Human Regular (Novolin R) 0 unit SC ACHS [facility] PRN Reason: Protocol Last Admin: 02/23/17 11:50 Dose: Not Given Polyethylene Glycol (Miralax) 17 gm PO QID [facility] Last Admin: 02/23/17 14:13 Dose: 17 gm Tamsulosin HCl (Flomax) 0.4 mg PO DAILY [facility] Last Admin: 02/23/17 09:51 Dose: 0.4 mg - Labs Labs: 02/21/17 06:16 02/21/17 06:16 PT 11.9 SECONDS (9.7-12.2) 02/17/17 12:21 INR 1.0 02/17/17 12:21 APTT 32 SECONDS (21-34) 02/17/17 12:21
[2017-02-23] MEDS ORDERED: Iohexol 240 (50 ml) PO ONE (21:00)
[2017-02-24 06:52] LABS: BASO % 0.6 % (0.0-2.0); EOS % 0.7 % (0.0-4.0); HEMATOCRIT 43.4 % (35.0-51.0); LYMPH # 1.3 K/uL (1.0-4.3); LYMPH % 21.3 % (20.0-40.0); MEAN CELL VOLUME 88.5 fL (80.0-94.0); MEAN CORPUSCULAR HEMOGLOBIN 29.4 pg (27.0-31.0); MEAN CORPUSCULAR HGB CONC 33.2 g/dL (33.0-37.0); MEAN PLATELET VOLUME 6.3 fL (7.2-11.7); MONO # 0.6 K/uL (0.0-0.8); MONO % 9.1 % (0.0-10.0); RED CELL DISTRIBUTION WIDTH 13.2 % (11.5-14.5); WHITE BLOOD COUNT 6.1 K/uL (4.8-10.8)
[2017-02-24 07:15] LABS: ALB/GLOB RATIO 1.2 (1.0-2.1); ALKALINE PHOSPHATASE 69 U/L (38-126); ALT/SGPT 27 U/L (21-72); AST/SGOT 21 U/L (17-59); BILIRUBIN,TOTAL 0.8 mg/dL (0.2-1.3); BLOOD UREA NITROGEN 8 mg/dL (9-20); CALCIUM 8.9 mg/dl (8.6-10.4); CARBON DIOXIDE 31 mmol/L (22-30); CHLORIDE 90 mmol/L (98-107); GFR AFRICAN-AMERICAN > 60; GLUCOSE,RANDOM 85 mg/dL (75-110); POTASSIUM 3.6 mmol/L (3.6-5.2); SODIUM 132 mmol/L (132-148); TOTAL PROTEIN 6.9 g/dL (6.3-8.3)
--- NOTE | 2017-02-24 07:54 | CP.PCM.PN ---
<Crystal Stacy - Last Filed: 02/24/17 10:20> Subjective - Date & Time of Evaluation Date of Evaluation: 02/24/17 Time of Evaluation: 06:00 - Subjective Subjective: GI Fellow PGY4 Progress Note Pt seen and examined at beside, pt still complaining of abdominal discomfort with no bowel movement in 9 days. Per nursing, pt did finish 2L Golytely and went to the bathroom many times instead of using the bedside cammod and flushed so nurse was unable to see if pt had any BM as pt continues to say he has not. Repeat abdominal flat plate showed mild amount of stool with no fecal impaction or obstruction. Repeat CT A/P is pending. No fevers, chills, N/V. Plan for cystoscopy today. ROS: A 12pt ROS was obtained and was negative except as mentioned above. Objective - Vital Signs/Intake and Output Vital Signs (last 24 hours): Temp Pulse Resp BP Pulse Ox 98.1 F 88 20 135/89 97 02/24/17 00:00 02/24/17 00:00 02/24/17 00:00 02/24/17 00:00 02/24/17 00:00 Intake and Output: 02/24/17 02/24/17 06:59 18:59 Intake Total 500 120 Output Total 350 200 Balance 150 -80 - Medications Medications: Current Medications Bisacodyl (Dulcolax) 10 mg PO DAILY [facility] Stop: 02/26/17 10:01 Last Admin: 02/23/17 12:52 Dose: 10 mg Doxazosin Mesylate (Cardura) 2 mg PO DAILY [facility] Last Admin: 02/23/17 09:51 Dose: 2 mg Enalapril Maleate (Vasotec) 10 mg PO DAILY [facility] Last Admin: 02/23/17 09:51 Dose: 10 mg Finasteride (Proscar) 5 mg PO DAILY [facility] Last Admin: 02/23/17 09:49 Dose: 5 mg Hydrocortisone (Anusol-Hc) 25 mg [place] BID [facility] Last Admin: 02/23/17 19:00 Dose: Not Given Insulin Human Regular (Novolin R) 0 unit [place] [facility] PRN Reason: Protocol Last Admin: 02/23/17 22:12 Dose: Not Given Polyethylene Glycol (Miralax) 17 gm PO QID [facility] Last Admin: 02/23/17 21:23 Dose: 17 gm Tamsulosin HCl (Flomax) 0.4 mg PO DAILY [facility] Last Admin: 02/23/17 09:51 Dose: 0.4 mg - Labs Labs: 02/24/17 06:37 02/24/17 06:37 PT 11.9 SECONDS (9.7-12.2) 02/17/17 12:21 INR 1.0 02/17/17 12:21 APTT 32 SECONDS (21-34) 02/17/17 12:21 - Constitutional Appears: No Acute Distress, Older Than Stated Age, Chronically Ill - Head Exam Head Exam: ATRAUMATIC, NORMAL INSPECTION, NORMOCEPHALIC - Eye Exam Eye Exam: EOMI, Normal appearance, PERRL Pupil Exam: PERRL - ENT Exam ENT Exam: Mucous Membranes Moist, Normal Exam - Neck Exam Neck Exam: Full ROM, Normal Inspection - Respiratory Exam Respiratory Exam: Clear to Ausculation Bilateral, NORMAL BREATHING PATTERN - Cardiovascular Exam Cardiovascular Exam: RRR, +S1, +S2 - GI/Abdominal Exam GI & Abdominal Exam: Soft, Tenderness, Normal Bowel Sounds. absent: Distended, Organomegaly - Rectal Exam Rectal Exam: Deferred - Exam Exam: Circumcision - Extremities Exam Extremities Exam: Full ROM, Normal Inspection - Back Exam Additional comments: Severe scoliosis - Neurological Exam Neurological Exam: Alert, Awake, Oriented x3 - Psychiatric Exam Psychiatric exam: Anxious - Skin Skin Exam: Intact, Normal Color, Warm Additional comments: Neurofibromas Assessment and Plan - Assessment and Plan (Free Text) Assessment: This is a 61yM with pmhx of neurofibroma, HTN, HLD, rectal cancer s/p chemoradiation, pw with urinary retention and paraphimosis s/p circumcision, green insertion with abdominal pain and no BM for greater than 1 week. 1. Rectal Cancer 2. Urinary retention s/p green 3. Paraphimosis- s/p circumcision 4. Abdominal Pain 5. Constipation Plan: -Abdominal pain with constipation-abdominal flat plate with mild stool and no fecal impaction on imaging and rectal exam. -Continue aggressive bowel regimen s/p Golyetly, miralx four times a day, dulcolax bid, and fleet enema prn with no BM per pt. -Repeat CT A/P pending. Evaluate bowel for any possible stool burden or obstruction to explain constipation. Pt had a recent CT A/P in January that was negative. -Plan for cystoscopy by Urology. -Continue a full liquid diet at this time. -Pain control per primary team. -Hx of rectal cancer, continue outpatient followup. <Laney Tao MD - Last Filed: 02/24/17 10:53> Objective - Vital Signs/Intake and Output Vital Signs (last 24 hours): Temp Pulse Resp BP Pulse Ox 97.9 F 83 20 119/82 97 02/24/17 08:43 02/24/17 08:43 02/24/17 08:43 02/24/17 09:08 02/24/17 08:43 Intake and Output: 02/24/17 02/24/17 06:59 18:59 Intake Total 500 120 Output Total 350 200 Balance 150 -80 - Medications Medications: Current Medications Bisacodyl (Dulcolax) 10 mg PO DAILY [facility] Stop: 02/26/17 10:01 Last Admin: 02/24/17 09:08 Dose: 10 mg Doxazosin Mesylate (Cardura) 2 mg PO DAILY [facility] Last Admin: 02/24/17 09:08 Dose: 2 mg Enalapril Maleate (Vasotec) 10 mg PO DAILY [facility] Last Admin: 02/24/17 09:08 Dose: 10 mg Finasteride (Proscar) 5 mg PO DAILY [facility] Last Admin: 02/24/17 09:08 Dose: 5 mg Hydrocortisone (Anusol-Hc) 25 mg [place] BID [facility] Last Admin: 02/24/17 09:08 Dose: Not Given Insulin Human Regular (Novolin R) 0 unit [place] ACHS [facility] PRN Reason: Protocol Last Admin: 02/24/17 09:07 Dose: 2 unit Polyethylene Glycol (Miralax) 17 gm PO QID [facility] Last Admin: 02/24/17 09:08 Dose: 17 gm Tamsulosin HCl (Flomax) 0.4 mg PO DAILY [facility] Last Admin: 02/24/17 09:08 Dose: 0.4 mg - Labs Labs: 02/24/17 06:37 02/24/17 06:37 PT 11.9 SECONDS (9.7-12.2) 02/17/17 12:21 INR 1.0 02/17/17 12:21 APTT 32 SECONDS (21-34) 02/17/17 12:21 Attending/Attestation - Attestation I have personally seen and examined this patient.: Yes I have fully participated in the care of the patient.: Yes I have reviewed all pertinent clinical information, including history, physical exam and plan: Yes Notes (Text): 02/24/17 10:52 Patient seen with GI fellow on rounds. This is a 61 yr old with pmhx of neurofibroma, HTN, HLD, rectal cancer s/p chemoradiation, pw with urinary retention and paraphimosis s/p circumcision, green insertion with ileus which is resolved now on stringent bowel regimen. No stool seen on imaging. Continue rigorous bowel regimen with enemas and miralax. Diet as tolerated. No s/s of bowel obstruction. Will sign off now.
[2017-02-24] MEDS: (Novolin R) Insulin Human Regular 100 units/ml vial SC SCH ×4 (09:07→21:46)
[2017-02-24] MEDS: Bisacodyl 5mg EC Tab PO SCH (09:08)
[2017-02-24] MEDS: POLYETHYLENE GLYCOL 3350 17 GM/Dose PACKET PO SCH ×4 (09:08→21:46)
--- NOTE | 2017-02-24 10:35 | CT ---
CT abdomen and pelvis without IV contrast Indication: Constipation, not responding Technique: Contiguous axial images of the abdomen and pelvis. Oral contrast was administered. No IV contrast given. Coronal and Sagittal reformats generated and reviewed. This CT exam was performed using 1 or more of the following dose reduction techniques: Automated exposure control, adjustment of the MAA and/or kV according to patient size, and/or use of iterative reconstruction technique. Radiation dose: Total exam DLP = 214.49 mGy-cm. Comparison: Abdominal x-ray performed 02/23/17 Findings: Examination markedly limited by paucity of intra-abdominal and intrapelvic fat as well as severe scoliosis. Emphysematous changes. Large bulla within the anterior lower chest, particularly adjacent to the heart. No visible consolidation, pleural effusion, or pneumothorax. 5 mm too small to characterize left hepatic lobe hypodensity; statistically likely a cyst or hemangioma. The unenhanced pancreas, kidneys, and spleen appear grossly unremarkable. The adrenal glands are not well visualized. The stomach is nondistended. The bowel loops appear within normal limits of caliber without evidence of intestinal obstruction. There is no definite free air. Moderate constipation. Limited visualization of the prostate gland appears borderline enlarged. Recommend correlation with PSA. Wells catheter within a decompressed urinary bladder. Air within the urinary bladder is likely secondary to recent instrumentation. Recommend correlation with urinalysis in order to assess for possibility of cystitis. Severe scoliosis convex to the right. Osseous demineralization. Degenerative changes. Impression: Markedly limited study as above. Too small to characterize left hepatic lobe hypodensity; statistically likely a cyst or hemangioma. Moderate constipation. Borderline enlargement of the prostate gland. Recommend correlation with PSA. Wells catheter within a decompressed urinary bladder. Air within the urinary bladder is likely secondary to recent instrumentation. Recommend correlation with urinalysis in order to assess for possibility of cystitis. Additional findings as above.
--- NOTE | 2017-02-24 13:25 | CP.PCM.PN ---
Subjective - Date & Time of Evaluation Date of Evaluation: 02/24/17 Time of Evaluation: 13:25 - Subjective Subjective: CT OF ABD , MOD CONSTIPATION, NO DIVERTICULITIS CPT D/C AFTER CYSTO Objective - Vital Signs/Intake and Output Vital Signs (last 24 hours): Temp Pulse Resp BP Pulse Ox 97.9 F 83 20 119/82 97 02/24/17 08:43 02/24/17 08:43 02/24/17 08:43 02/24/17 09:08 02/24/17 08:43 Intake and Output: 02/24/17 02/24/17 11:59 23:59 Intake Total 120 Output Total 200 Balance -80 - Medications Medications: Current Medications Bisacodyl (Dulcolax) 10 mg PO DAILY [facility] Stop: 02/26/17 10:01 Last Admin: 02/24/17 09:08 Dose: 10 mg Doxazosin Mesylate (Cardura) 2 mg PO DAILY [facility] Last Admin: 02/24/17 09:08 Dose: 2 mg Enalapril Maleate (Vasotec) 10 mg PO DAILY [facility] Last Admin: 02/24/17 09:08 Dose: 10 mg Finasteride (Proscar) 5 mg PO DAILY [facility] Last Admin: 02/24/17 09:08 Dose: 5 mg Hydrocortisone (Anusol-Hc) 25 mg [place] BID [facility] Last Admin: 02/24/17 09:08 Dose: Not Given Insulin Human Regular (Novolin R) 0 unit SC ACHS [facility] PRN Reason: Protocol Last Admin: 02/24/17 12:19 Dose: Not Given Polyethylene Glycol (Miralax) 17 gm PO QID [facility] Last Admin: 02/24/17 09:08 Dose: 17 gm Tamsulosin HCl (Flomax) 0.4 mg PO DAILY [facility] Last Admin: 02/24/17 09:08 Dose: 0.4 mg - Labs Labs: 02/24/17 06:37 02/24/17 06:37 PT 11.9 SECONDS (9.7-12.2) 02/17/17 12:21 INR 1.0 02/17/17 12:21 APTT 32 SECONDS (21-34) 02/17/17 12:21
[2017-02-24] MEDS ORDERED: Iohexol 240 (50 ml) ONE ×2 (13:54→14:48)
[2017-02-24] MEDS ORDERED: cefTRIAXone IV 1 gm in Dextros 0 ML IVPB ONE ×2 (13:54→14:48)
[2017-02-24] MEDS ORDERED: Lidocaine 2% Jelly (Uro-Jet) ONE ×2 (13:54→16:32)
[2017-02-24] MEDS ORDERED: Lactated Ringer's 1,000 ML IV ONE (15:15)
[2017-02-24] MEDS ORDERED: Propofol 10 mg/ml Inj (20 ML) ONE (15:17)
[2017-02-24] MEDS ORDERED: Sodium Chloride 0.9% 1,000 ML IV ONE (15:39)
[2017-02-25 00:10] VITALS: RESP 20
[2017-02-25] MEDS: (Novolin R) Insulin Human Regular 100 units/ml vial SC SCH ×2 (07:55→12:14)
[2017-02-25 09:04] VITALS: BP 121/73; PULSE 78; TEMP 96.6; O2SAT 98
[2017-02-25] MEDS: POLYETHYLENE GLYCOL 3350 17 GM/Dose PACKET PO SCH ×2 (09:39→14:57)
[2017-02-25] MEDS: Bisacodyl 5mg EC Tab PO SCH (09:39)
--- NOTE | 2017-02-25 13:36 | CP.PCM.DIS ---
Provider - Provider Date of Admission: 02/17/17 15:43 Attending physician: Mark Raines MD Time Spent in preparation of Discharge (in minutes): 30 Hospital Course - Lab Results Lab Results: Micro Results 02/19/17 10:17 Urine,Catheterized Urine Culture - Final Yeast Species Most Recent Lab Values WBC 6.1 K/uL (4.8-10.8) 02/24/17 06:37 RBC 4.90 Mil/uL (4.40-5.90) 02/24/17 06:37 Hgb 14.4 g/dL (12.0-18.0) 02/24/17 06:37 Hct 43.4 % (35.0-51.0) 02/24/17 06:37 MCV 88.5 fL (80.0-94.0) 02/24/17 06:37 MCH 29.4 pg (27.0-31.0) 02/24/17 06:37 MCHC 33.2 g/dL (33.0-37.0) 02/24/17 06:37 RDW 13.2 % (11.5-14.5) 02/24/17 06:37 Plt Count 297 K/uL (130-400) 02/24/17 06:37 MPV 6.3 fL (7.2-11.7) L 02/24/17 06:37 Neut % (Auto) 68.3 % (50.0-75.0) 02/24/17 06:37 Lymph % (Auto) 21.3 % (20.0-40.0) 02/24/17 06:37 [place] % (Auto) 9.1 % (0.0-10.0) 02/24/17 06:37 Eos % (Auto) 0.7 % (0.0-4.0) 02/24/17 06:37 Baso % (Auto) 0.6 % (0.0-2.0) 02/24/17 06:37 Neut # 4.2 K/uL (1.8-7.0) 02/24/17 06:37 Lymph # 1.3 K/uL (1.0-4.3) 02/24/17 06:37 [place] # 0.6 K/uL (0.0-0.8) 02/24/17 06:37 Eos # 0.0 K/uL (0.0-0.7) 02/24/17 06:37 Baso # 0.0 K/uL (0.0-0.2) 02/24/17 06:37 PT 11.9 SECONDS (9.7-12.2) 02/17/17 12:21 INR 1.0 02/17/17 12:21 APTT 32 SECONDS (21-34) 02/17/17 12:21 Sodium 132 mmol/L (132-148) 02/24/17 06:37 Potassium 3.6 mmol/L (3.6-5.2) 02/24/17 06:37 Chloride 90 mmol/L (98-107) L 02/24/17 06:37 Carbon Dioxide 31 mmol/L (22-30) H 02/24/17 06:37 Anion Gap 15 (10-20) 02/24/17 06:37 BUN 8 mg/dL (9-20) L 02/24/17 06:37 Creatinine 0.6 MG/DL (0.8-1.5) L 02/24/17 06:37 Est GFR ( Amer) > 60 02/24/17 06:37 Est GFR (Non-Af Amer) > 60 02/24/17 06:37 POC Glucose (mg/dL) 100 mg/dL (65-110) 02/25/17 11:27 Random Glucose 85 mg/dL (75-110) 02/24/17 06:37 Calcium 8.9 mg/dl (8.6-10.4) 02/24/17 06:37 Total Bilirubin 0.8 mg/dL (0.2-1.3) 02/24/17 06:37 AST 21 U/L (17-59) 02/24/17 06:37 ALT 27 U/L (21-72) 02/24/17 06:37 Alkaline Phosphatase 69 U/L (38-126) 02/24/17 06:37 Total Protein 6.9 g/dL (6.3-8.3) 02/24/17 06:37 Albumin 3.7 g/dL (3.5-5.0) 02/24/17 06:37 Globulin 3.2 gm/dL (2.2-3.9) 02/24/17 06:37 Albumin/Globulin Ratio 1.2 (1.0-2.1) 02/24/17 06:37 Urine Color Yellow (YELLOW) 02/17/17 11:45 Urine Clarity Clear (Clear) 02/17/17 11:45 Urine pH 8.0 (5.0-8.0) 02/17/17 11:45 Ur Specific [place] 1.005 (1.003-1.030) 02/17/17 11:45 Urine Protein 1+ mg/dL (NEGATIVE) H 02/17/17 11:45 Urine Glucose (UA) Normal mg/dL (Normal) 02/17/17 11:45 Urine Ketones Negative mg/dL (NEGATIVE) 02/17/17 11:45 Urine Blood 3+ (NEGATIVE) H 02/17/17 11:45 Urine Nitrate Negative (NEGATIVE) 02/17/17 11:45 Urine Bilirubin Negative (NEGATIVE) 02/17/17 11:45 Urine Urobilinogen Normal mg/dL (0.2-1.0) 02/17/17 11:45 Ur Leukocyte Esterase Trace Stacy/uL (Negative) 02/17/17 11:45 Urine WBC (Auto) 10 /hpf (0-5) H 02/17/17 11:45 Urine RBC (Auto) 22 /hpf (0-3) H 02/17/17 11:45 Urine Bacteria Occ (<OCC) H 02/17/17 11:45 Urine Yeast (Budding) Occ /hpf (NEGATIVE) H 02/17/17 11:45 Blood Type O POSITIVE 02/17/17 12:21 Antibody Screen Negative 02/17/17 12:21 - Hospital Course Hospital Course: Patient is admitted for paraphimosis for surgery. A year ago patient had a bladder cancer and subsequently underwent a chemotherapy and radiation. Since the radiation therapy patient has been complaining off moderate to severe urinary complaints with multiple he and hospital admissions. Recently patient had acute urinary olfaction had a Wells catheter is and subsequently developed severe swelling of his penis.. PT HAD CIRCUMCISIION POST OP HAD RESISTANT CONSTIPATION AFTER DIFFERENT MEDS PT RESPONDED CT ABD. NOTHING ACUTE PT D/C F/U MED CLINIC Discharge Exam - Head Exam Head Exam: ATRAUMATIC, NORMAL INSPECTION, NORMOCEPHALIC Discharge Plan - Follow Up Plan Condition: FAIR Disposition: HOME/ ROUTINE Instructions: Adult Male Circumcision (DC)
--- NOTE | 2017-02-25 13:59 | CP.PCM.PN ---
Subjective - Date & Time of Evaluation Date of Evaluation: 02/25/17 Time of Evaluation: 13:59 - Subjective Subjective: PT CLEARED FOR D/C BY DR. ZABALA. PT TO F/U IN HIS OFFICE OR A CLINIC WITHIN 1 WEEK. RX SENT TO PT'S PHARMACY PER MD REQUEST. NO FURTHER ORDERS. Objective - Vital Signs/Intake and Output Vital Signs (last 24 hours): Temp Pulse Resp BP Pulse Ox 96.6 F L 78 20 121/73 98 02/25/17 09:42 02/25/17 09:42 02/25/17 09:42 02/25/17 09:42 02/25/17 09:42 Intake and Output: 02/25/17 02/25/17 06:59 18:59 Intake Total 960 Balance 960 - Medications Medications: Current Medications Bisacodyl (Dulcolax) 10 mg PO DAILY [facility] Stop: 02/26/17 10:01 Last Admin: 02/25/17 09:39 Dose: 10 mg Doxazosin Mesylate (Cardura) 2 mg PO DAILY [facility] Last Admin: 02/25/17 09:39 Dose: 2 mg Enalapril Maleate (Vasotec) 10 mg PO DAILY [facility] Last Admin: 02/25/17 09:41 Dose: 10 mg Finasteride (Proscar) 5 mg PO DAILY [facility] Last Admin: 02/25/17 09:39 Dose: 5 mg Hydrocortisone (Anusol-Hc) 25 mg [place] BID [facility] Last Admin: 02/25/17 09:41 Dose: 25 mg Insulin Human Regular (Novolin R) 0 unit SC ACHS [facility] PRN Reason: Protocol Last Admin: 02/25/17 12:14 Dose: Not Given Morphine Sulfate (Morphine) 1 mg IVP Q10M PRN PRN Reason: Pain, moderate (4-7) Polyethylene Glycol (Miralax) 17 gm PO QID [facility] Last Admin: 02/25/17 09:39 Dose: 17 gm Tamsulosin HCl (Flomax) 0.4 mg PO DAILY [facility] Last Admin: 02/25/17 09:39 Dose: 0.4 mg - Labs Labs: 02/24/17 06:37 02/24/17 06:37 PT 11.9 SECONDS (9.7-12.2) 02/17/17 12:21 INR 1.0 02/17/17 12:21 APTT 32 SECONDS (21-34) 02/17/17 12:21
--- NOTE | 2017-03-10 10:34 | OP ---
PROCEDURE DATE: 02/24/2017 PREOPERATIVE DIAGNOSES: Urinary retention, voiding dysfunction, paraphimosis, recurrent episodes of phimosis/paraphimosis, balanitis, hematuria. POSTOPERATIVE DIAGNOSES: Urinary retention, voiding dysfunction, paraphimosis, recurrent episodes of phimosis/paraphimosis, balanitis, hematuria. PROCEDURE: Flexible cystoscopy. DESCRIPTION OF PROCEDURE: The patient was kept in supine position. Under routine monitor was placed, time-out was called to confirm the patient's positioning, antibiotic prophylaxis. We removed the old Wells catheter. Cystoscope via the urethra, anterior and relatively occlusive prostate of 3 cm in length. At this point, we inspected the bladder. There are no bladder tumors. The bladder was erythematous from the previously Wells catheter in place. At this point, we inserted a new Wells catheter via the urethra. At this point, I mentioned also that his circumcision that was done last week has healed nicely. Papi Malik MD
--- NOTE | 2017-03-11 05:55 | CON ---
DATE: HISTORY OF PRESENT ILLNESS: See history and physical for further details. Mr. Pena is very pleasant, but extremely noncompliant gentleman, who is being admitted to the hospital now with urology consult for the following; he has paraphimosis severe and he is going to require immediate surgery for this with a circumcision. He also has gross hematuria and urinary dysfunction and urinary retention and he is going to need evaluation and treatment for this as well. PAST MEDICAL AND SURGICAL HISTORY: As listed on the chart. He is diabetic, underlying malignancy, I believe it is colon or rectal cancer. MEDICATIONS: See the chart. ALLERGIES: See the chart. PHYSICAL EXAMINATION: GENERAL: Well-nourished male, in no apparent distress. VITAL SIGNS: ABDOMEN: Relatively soft, but difficult to evaluate for distention. See below plan. GENITOURINARY: He has a glans that is well developed. He has severely paraphimotic, swollen, edematous penis. see the pictures taken in the operating room. DIAGNOSES: Urinary retention, voiding dysfunction, recurrent episodes of urinary retention. He currently has an indwelling Wells catheter as mentioned above. History is as follows, in summary, this is a very pleasant gentleman. He came in to the hospital now as an emergency with severe pain in his penis. He did get in to the emergency room few times. His history as follows, he is very pleasant, but extremely noncompliant gentleman, who uses the emergency room on a regular basis here and also apparently at the [facility] where I am not a staff. The last time he was admitted to that hospital upon insertion of Wells catheter according to the patient perhaps the foreskin became edematous. He then presented to the [facility] Emergency Room on evening and then he saw me on Friday. I discussed the option with the patient. I tried in the office. See the office note to gently reduce it, but it was just too painful, uncomfortable, and at this point with that amount of edema and the recurrent episodes of this occurring in the patient, we recommended to the patient that we were going to arrange for a circumcision, but for various reasons he has now come through the ER, pain specifically. So at this point, he is being admitted in this urology consult. DIAGNOSES: As follows: 1. Paraphimosis with severe edema and severe paraphimosis and I cannot reduce. 2. Urinary retention for weeks. PLAN: Regarding the paraphimosis, we discussed options with the patient and he is amenable a circumcision. I explained to the patient it is going to be very difficult to do a circumcision in the setting because he has now been edematous, . At this point after discussing the options, he is amenable for circumcision. I explained to the patient keloids. I explained to the patient the difficult nature of the procedure itself at this point. Regarding urinary retention, he currently has indwelling Wells catheter and this will require further evaluation and treatment including workup, including cystoscopy whether we do this as an in or outpatient and again the patient is somewhat noncompliance, we may end up being encouraged to try to do this more as an inpatient. Papi Malik MD
--- NOTE | 2017-03-11 05:55 | OP ---
PROCEDURE DATE: 02/18/2017 PREOPERATIVE DIAGNOSES: Paraphimosis, balanitis, recurring episodes of phimosis/paraphimosis, urinary retention and underlying diabetes. POSTOPERATIVE DIAGNOSES: Paraphimosis, balanitis, recurring episodes of phimosis/paraphimosis, urinary retention and underlying diabetes. PROCEDURE: Reduction of a paraphimosis as best as possible and then really a take down and a circumcision. ESTIMATED BLOOD LOSS: Less than 25 mL. DRAINS: Wells catheter is already in place. COMPLICATIONS: There were no complications. At the termination of the procedure, circumcision will be terrifically well. Surprisingly despite his edema and tissue, we were able to perform a nice cosmetic result. Blood loss was 10 to 20 mL. INDICATIONS: See history and physical. This is a very pleasant, but extremely noncompliant gentleman who has been back both in [facility] and [facility] with urinary retention and bouts of episodes of phimosis/ paraphimosis. Last time, he was in the [facility] was on evening. When he came to the office on Friday, we tried reducing it, but we were just unable to do . We discussed options with the patient. Next we procedure. In the interim, dictated consult note. The patient presented back here to the emergency room with severe pain and just discomfort. We never really were able to reduce the foreskin and we explained to the patient at that time our recommendation is going to be for a circumcision. . DESCRIPTION OF PROCEDURE: After obtaining informed consent, the patient was placed on the table . Routine monitors placed, time-out was called to confirm the patient's positioning. I do want to mention we explained to the patient in great detail in Cuban, interpreted with a chief crna. We continued in the time-out was called to confirm patient . We gently, carefully were able to reduce the foreskin, once the patient was anesthetized. The edema. We have been making the skin as best as possible, but it was very, very limited given the amount of edema. But now we were able to take it with a squeeze technique, once we able to reduce it, and do skin markings and using marking pen to see exactly where the landmarks would be. Once we did this, actually during the actual procedure, the Wells catheter was somewhat removed. With the squeeze technique, we removed the foreskin. We inspected carefully to make sure there was no bleeding. and then we reapproximated the proximal and distal ends. At this point, under sterile technique, we inserted new Wells catheter the patient tolerated it without complications. As mentioned above, demonstrated good cosmetic result. The blood loss was minimal. The patient tolerated the procedure without complication. Papi Malik MD
== END 2017-02-25 15:30 | disposition home or self-care (01) | DRG 350 ==
LOC: C.ER 09:35 → C.9E 12:18 → OBSVTOIN 15:43 → C.3T 21:17
PROVIDERS: ADMIT Internal Medicine Cardiovascular Disease; ATTEND Internal Medicine Cardiovascular Disease
PROC: 0T9B70Z Drainage of Bladder with Drainage Device, Via Natural or Artificial Opening (ICD-10-PCS; 2017-02-18)
PROC: 0VTTXZZ Resection of Prepuce, External Approach (ICD-10-PCS; principal; 2017-02-18 16:00)
PROC: 0TJB8ZZ Inspection of Bladder, Via Natural or Artificial Opening Endoscopic (ICD-10-PCS; 2017-02-24)
PROC: BT14ZZZ Fluoroscopy of Kidneys, Ureters and Bladder (ICD-10-PCS; 2017-02-24)
DX: N47.2 Paraphimosis (principal); N48.1 Balanitis; N40.1 Benign prostatic hyperplasia with lower urinary tract symptoms; R33.8 Other retention of urine; C20 Malignant neoplasm of rectum; E11.22 Type 2 diabetes mellitus with diabetic chronic kidney disease; J44.9 Chronic obstructive pulmonary disease, unspecified; I12.9 Hypertensive chronic kidney disease with stage 1 through stage 4 chronic kidney disease, or unspecified chronic kidney disease; N18.9 Chronic kidney disease, unspecified; J45.909 Unspecified asthma, uncomplicated; E78.5 Hyperlipidemia, unspecified; M41.9 Scoliosis, unspecified; K59.09 Other constipation; Q85.00 Neurofibromatosis, unspecified; Z87.891 Personal history of nicotine dependence; Z92.21 Personal history of antineoplastic chemotherapy; Z92.3 Personal history of irradiation; Z91.19 Patient's noncompliance with other medical treatment and regimen

== ENCOUNTER 2017-03-09 20:12 | Emergency (ER) | payer MEDICAID ==
[2017-03-09 20:12] VITALS: BMI 44.9
[2017-03-09 20:19] VITALS: RESP 18
--- NOTE | 2017-03-09 20:25 | C.PDOC ---
History Of Present Illness Patient presents to the ER with a complaint of urinary retention. Patient was recently circumcised for paraphimosis; he reports minimal urine output over the last 12-24 hours. Denies fever, chills, nausea, or vomiting. Time Seen by Provider: 03/09/17 20:25 Chief Complaint (Nursing): Male Genitourinary History Per: Patient History/Exam Limitations: no limitations Onset/Duration Of Symptoms: Hrs Current Symptoms Are (Timing): Still Present Quality Of Discomfort: Unable To Describe Associated Symptoms: denies: Fever, Chills, Nausea, Vomiting Alleviating Factors: None Recent travel outside of the [place]: No Past Medical History Reviewed: Historical Data, Nursing Documentation, Vital Signs Vital Signs: Last Vital Signs Temp 98.6 F 03/09/17 22:52 Pulse 92 H 03/09/17 22:52 Resp 18 03/09/17 22:52 BP 144/91 H 03/09/17 22:52 Pulse Ox 97 03/09/17 22:52 - Medical History PMH: Asthma, Benign Prostatic Hyperplasia, HTN, Chronic Kidney Disease - [facility] Procedures EXCISION OF ASCENDING COLON, ENDO, DIAGN (10/20/16) EXCISION OF SIGMOID COLON, ENDO, DIAGN (10/20/16) FLUOROSCOPY OF KIDNEYS, URETERS AND BLADDER (02/17/17) INSERTION OF VAD INTO CHEST SUBCU/FASCIA, OPEN APPROACH (10/20/16) INSPECTION OF BLADDER, ENDO (02/17/17) INSPECTION OF UPPER INTESTINAL TRACT, ENDO (10/20/16) INSPECTION OF UPPER VEIN, EXTERNAL APPROACH (10/20/16) RESECTION OF PREPUCE, EXTERNAL APPROACH (02/17/17) Family History: States: Unknown Family Hx - Social History Hx Tobacco Use: No Hx Alcohol Use: No Hx Substance Use: No - Immunization History Hx Tetanus Toxoid Vaccination: No Hx Influenza Vaccination: No Hx Pneumococcal Vaccination: No Review Of Systems Constitutional: Negative for: Fever, Chills Gastrointestinal: Negative for: Nausea, Vomiting Genitourinary: Positive for: Other (Retention) Physical Exam - Physical Exam Appears: Non-toxic Skin: Warm, Dry Oral Mucosa: Moist Chest: Symmetrical, No Tenderness Cardiovascular: Rhythm Regular, No Murmur Respiratory: No Rales, No Rhonchi, No Wheezing Gastrointestinal/Abdominal: Soft, No Tenderness, Distention, No Guarding, No Rebound Male Genital: Normal Inspection, No Testicular Tenderness, No Testicular Swelling, No Inguinal Tenderness, No Inguinal Swelling, No Scrotal Swelling Neurological/Psych: Oriented x3 ED Course And Treatment O2 Sat by Pulse Oximetry: 99 (Room air) Pulse Ox Interpretation: Normal Progress Note: Patient refuses folly catheter, explained to patient in length the necessity for a catheter to relieve urinary retention; patient still refuses. Explained to patient in length the risks of not inserting a folly catheter which include worsening of condition, rupture of bladder and ; patient still refuses folly catheter. Patient will sign out AMA. after more discussion, pt agreed to a green catheter. a 12 fr green was placed with about 200 cc of urine drained. Pt feels better Reevaluation Time: 22:32 Reassessment Condition: Improved Disposition Counseled Patient/Family Regarding: Studies Performed, Diagnosis - Disposition Referrals: Bennett Malik MD [Staff Provider] - Disposition: HOME/ ROUTINE Disposition Time: 20:25 Condition: FAIR Prescriptions: oxyCODONE/Acetaminophen [Percocet 5/325 mg Tab] 1 tab PO QID PRN #12 tab PRN Reason: Pain Instructions: Urinary Retention in Men (ED) Forms: [employer] (Puerto Rican) Print Language: CYMRAES - Clinical Impression Clinical Impression: Urinary retention, Green catheter in place - Scribe Statement The provider has reviewed the documentation as recorded by the Scribles Cruz All medical record entries made by the Scribe were at my direction and personally dictated by me. I have reviewed the chart and agree that the record accurately reflects my personal performance of the history, physical exam, medical decision making, and the department course for this patient. I have also personally directed, reviewed, and agree with the discharge instructions and disposition.
[2017-03-09] MEDS ORDERED: Lidocaine 2% Jelly (Uro-Jet) ONE (20:40)
[2017-03-09] MEDS ORDERED: Oxycodone/Acetaminophen 5/325 mg Tab PO STA (20:51)
[2017-03-09] MEDS ORDERED: Oxycodone/Acetaminophen 5/325 mg Tab ONE (20:59)
[2017-03-09 22:53] VITALS: BP 144/91; PULSE 92; TEMP 98.6
[2017-03-09 22:59] VITALS: O2SAT 99
== END 2017-03-09 23:00 | disposition home or self-care (01) ==
LOC: C.ER 20:12
DX: N40.1 Benign prostatic hyperplasia with lower urinary tract symptoms (principal); R33.8 Other retention of urine; I12.9 Hypertensive chronic kidney disease with stage 1 through stage 4 chronic kidney disease, or unspecified chronic kidney disease; N18.9 Chronic kidney disease, unspecified

== ENCOUNTER 2017-03-10 19:22 | Emergency (ER) | payer MEDICAID ==
[2017-03-10 19:22] VITALS: BMI 44.9
[2017-03-10 19:37] VITALS: PULSE 92; RESP 20; TEMP 98.5; O2SAT 96
[2017-03-10 20:45] VITALS: BP 137/86
--- NOTE | 2017-03-10 20:50 | C.PDOC ---
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 Patient has a folly catheter that was put in place yesterday; he was also given an Rx for percocet which he has not filled out. Denies dysuria , hematuria, fever, or chills. 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 History/Exam Limitations: no limitations Onset/Duration Of Symptoms: Hrs Current Symptoms Are (Timing): Still Present Quality Of Discomfort: Unable To Describe Associated Symptoms: denies: Fever, Chills, Urinary Symptoms Alleviating Factors: None Recent travel outside of the [place]: No Past Medical History Reviewed: Historical Data, Nursing Documentation, Vital Signs Vital Signs: Last Vital Signs Temp 98.5 F 03/10/17 19:36 Pulse 92 H 03/10/17 19:36 Resp 20 03/10/17 19:36 BP 137/86 03/10/17 20:45 Pulse Ox 96 03/10/17 20:50 - Medical History PMH: Asthma, Benign Prostatic Hyperplasia, HTN, Chronic Kidney Disease - [facility] Procedures EXCISION OF ASCENDING COLON, ENDO, DIAGN (10/20/16) EXCISION OF SIGMOID COLON, ENDO, DIAGN (10/20/16) FLUOROSCOPY OF KIDNEYS, URETERS AND BLADDER (02/17/17) INSERTION OF VAD INTO CHEST SUBCU/FASCIA, OPEN APPROACH (10/20/16) INSPECTION OF BLADDER, ENDO (02/17/17) INSPECTION OF UPPER INTESTINAL TRACT, ENDO (10/20/16) INSPECTION OF UPPER VEIN, EXTERNAL APPROACH (10/20/16) RESECTION OF PREPUCE, EXTERNAL APPROACH (02/17/17) Family History: States: Unknown Family Hx - Social History Hx Tobacco Use: No Hx Alcohol Use: No Hx Substance Use: No - Immunization History Hx Tetanus Toxoid Vaccination: No Hx Influenza Vaccination: No Hx Pneumococcal Vaccination: No Review Of Systems Except As Marked, All Systems Reviewed And Found Negative. Constitutional: Negative for: Fever, Chills Gastrointestinal: Positive for: Abdominal Pain Genitourinary: Positive for: Penile Pain. Negative for: Dysuria, Hematuria Physical Exam - Physical Exam Appears: Non-toxic Skin: Normal Color, Warm, Dry Head: Atraumatic, Normacephalic Oral Mucosa: Moist Cardiovascular: Rhythm Regular, No Murmur Respiratory: Other (Speaking in complete sentences, no respiratory distress) Gastrointestinal/Abdominal: Soft, No Tenderness Neurological/Psych: Oriented x3, Normal Speech, Normal Cognition ED Course And Treatment O2 Sat by Pulse Oximetry: 96 (Room air) Pulse Ox Interpretation: Normal Progress - Re-Evaluation Re-evaluation Note: 03/10/17 20:49 ADVISED TO LEAVE DENTON IN AND TO FOLLOW UP WITH PREVIOUSLY INSTRUCTED. ADVISED TO FILL PAIN RX AND TAKE PRESCRIBED DENTON DRAINING WO DIFF. - Data Reviewed Data Reviewed: Old records Medical Decision Making Medical Decision Making: Patient is requesting to have folly removed, explained to patient that he would not be able to urinate if folly is removed. Advised patient to fill out Rx for pain medication that was given to him during his ER visit yesterday and to follow up with his urologist. Disposition Counseled Patient/Family Regarding: Diagnosis, Need For Followup - Disposition Referrals: Niyah Malik MD [Staff Provider] - Disposition: HOME/ ROUTINE Disposition Time: 20:49 Condition: GOOD Instructions: [place] Catheter Placement and Care (ED) Forms: [employer] (Spanish) Print Language: ESTONIAN - Clinical Impression Clinical Impression: Penile pain, D[place] catheter in place - Scribe Statement The provider has reviewed the documentation as recorded by the Scribe Kory Cruz All medical record entries made by the Scribe were at my direction and personally dictated by me. I have reviewed the chart and agree that the record accurately reflects my personal performance of the history, physical exam, medical decision making, and the department course for this patient. I have also personally directed, reviewed, and agree with the discharge instructions and disposition.
== END 2017-03-10 20:54 | disposition home or self-care (01) ==
LOC: C.ER 19:22
DX: N48.89 Other specified disorders of penis (principal); Z97.8 Presence of other specified devices

== ENCOUNTER 2017-03-19 14:24 | Emergency (ER) | payer MEDICAID ==
[2017-03-19 14:24] VITALS: BMI 44.9
[2017-03-19 14:51] VITALS: TEMP 97.8
[2017-03-19] MEDS ORDERED: Sodium Chloride 0.9% 1,000 ML IV ONE (15:21)
--- NOTE | 2017-03-19 15:34 | C.PDOC ---
History Of Present Illness 61 y/o male with history of multiple ER visits for similar, past medical history of rectal cancer, not currently being treated, presents to the emergency department today with complaint of frequent episodes of urinary retention, hesitancy, and feeling like he cannot void. Patient was discharged from last ER visit with Green catheter in place. Patient notes the catheter is still in place but reports no urine output in leg bag for 4 days. Patient has had multiple instructions to f/u with urology but has not been fully compliant in following up. Patient also c/o suprapubic abdominal pain. Denies vomiting or fever. Time Seen by Provider: 03/19/17 15:12 Chief Complaint (Nursing): Male Genitourinary History Per: Patient History/Exam Limitations: no limitations Onset/Duration Of Symptoms: Days Current Symptoms Are (Timing): Still Present Quality Of Discomfort: "Pain" Associated Symptoms: Urinary Symptoms Recent travel outside of the [place]: No Past Medical History Reviewed: Historical Data, Nursing Documentation, Vital Signs Vital Signs: Last Vital Signs Temp 97.8 F 03/19/17 14:47 Pulse 97 H 03/19/17 16:35 Resp 18 03/19/17 16:35 BP 155/88 H 03/19/17 16:35 Pulse Ox 97 03/19/17 17:06 - Medical History PMH: Asthma, Benign Prostatic Hyperplasia, HTN, Chronic Kidney Disease - [facility] Procedures DRAINAGE OF BLADDER WITH DRAINAGE DEVICE, VIA OPENING (02/17/17) EXCISION OF ASCENDING COLON, ENDO, DIAGN (10/20/16) EXCISION OF SIGMOID COLON, ENDO, DIAGN (10/20/16) FLUOROSCOPY OF KIDNEYS, URETERS AND BLADDER (02/17/17) INSERTION OF VAD INTO CHEST SUBCU/FASCIA, OPEN APPROACH (10/20/16) INSPECTION OF BLADDER, ENDO (02/17/17) INSPECTION OF UPPER INTESTINAL TRACT, ENDO (10/20/16) INSPECTION OF UPPER VEIN, EXTERNAL APPROACH (10/20/16) RESECTION OF PREPUCE, EXTERNAL APPROACH (02/17/17) Family History: States: Unknown Family Hx - Social History Hx Tobacco Use: No Hx Alcohol Use: No Hx Substance Use: No - Immunization History Hx Tetanus Toxoid Vaccination: No Hx Influenza Vaccination: No Hx Pneumococcal Vaccination: No Review Of Systems Constitutional: Negative for: Fever, Chills Cardiovascular: Negative for: Chest Pain Respiratory: Negative for: Cough, Shortness of Breath Genitourinary: Positive for: Other (hesitancy, retention). Negative for: Dysuria, Hematuria Skin: Negative for: Rash Physical Exam - Physical Exam Appears: Non-toxic, No Acute Distress Skin: Normal Color, Warm, Dry Head: Atraumatic, Normacephalic Oral Mucosa: Moist Chest: Symmetrical Cardiovascular: Rhythm Regular Respiratory: Normal Breath Sounds, No Rales, No Rhonchi, No Wheezing Gastrointestinal/Abdominal: Soft, Tenderness (mild, suprapubic), Distention ( mild, suprapubic), No Guarding, No Rebound Back: Normal Inspection Extremity: Normal ROM, Capillary Refill (< 2 sec. ), Other (leg bag in place, dry) Neurological/Psych: Oriented x3, Normal Speech, Normal Cognition ED Course And Treatment - Laboratory Results Result Diagrams: 03/19/17 15:55 03/19/17 15:55 Lab Interpretation: Abnormal (Urine WBC 212 with 3+ leukocyte esterase and many bacteria.) O2 Sat by Pulse Oximetry: 97 Pulse Ox Interpretation: Normal Progress Note: Morphine, IV fluids, labs, urinalysis ordered. Bladder scan showed 62 ml of urine in the bladder and the bag is filling spontaneously in ED without evidence of obstruction. Patient states that he has had difficulty following up with urologists "because they do not take his insurance". He was made an appointment by ED staff in the past which he did not show up for. He has been referred to almost every covering urologist multiple times. He is advised to f/u in the clinic for primary care and possible referral. Reevaluation Time: 17:06 Reassessment Condition: Improved Medical Decision Making Medical Decision Making: UTI vs colonized urine in patient with indwelling green. URine culture sent again. Past cultures all resulted with less than 1000 CFU and no identifiable organisms. In light of symptoms of bladder pain will treat with Macrobid and Pyridium at this time while awaiting repeat culture results. Disposition - Disposition Referrals: [facility] [Outside] Disposition: HOME/ ROUTINE Disposition Time: 17:12 Condition: IMPROVED Prescriptions: Nitrofurantoin Macrocrystals [Macrobid] 1 cap PO BID #14 cap Phenazopyridine [Pyridium] 100 mg PO TID PRN #6 tab PRN Reason: Urinary Discomt Instructions: Catheter-associated Urinary Tract Infection (ED) Forms: [facility] (Yemeni) Print Language: YI - Clinical Impression Clinical Impression: Green catheter in place, Urinary tract infection symptoms - Scribe Statement The provider has reviewed the documentation as recorded by the Scribles Carrizales All medical record entries made by the Deanaibe were at my direction and personally dictated by me. I have reviewed the chart and agree that the record accurately reflects my personal performance of the history, physical exam, medical decision making, and the department course for this patient. I have also personally directed, reviewed, and agree with the discharge instructions and disposition.
[2017-03-19 16:04] LABS: BASO % 0.5 % (0.0-2.0); EOS % 0.3 % (0.0-4.0); HEMATOCRIT 47.4 % (35.0-51.0); LYMPH % 11.8 % (20.0-40.0); MEAN CORPUSCULAR HEMOGLOBIN 30.5 pg (27.0-31.0); MEAN CORPUSCULAR HGB CONC 34.3 g/dL (33.0-37.0); MEAN PLATELET VOLUME 6.1 fL (7.2-11.7); MONO # 0.7 K/uL (0.0-0.8); MONO % 8.6 % (0.0-10.0); NRBC % 0.1 % (0.0-2.0); RED CELL DISTRIBUTION WIDTH 13.1 % (11.5-14.5); WHITE BLOOD COUNT 8.2 K/uL (4.8-10.8)
[2017-03-19 16:13] LABS: CHLORIDE 97 mmol/L (98-107)
[2017-03-19 16:14] LABS: POTASSIUM 3.6 mmol/L (3.6-5.2); SODIUM 138 mmol/L (132-148)
[2017-03-19 16:15] LABS: AST/SGOT 21 U/L (17-59); CARBON DIOXIDE 27 mmol/L (22-30); GFR AFRICAN-AMERICAN > 60
[2017-03-19 16:16] LABS: ALB/GLOB RATIO 1.2 (1.0-2.1); ALKALINE PHOSPHATASE 78 U/L (38-126); ALT/SGPT 34 U/L (21-72); BLOOD UREA NITROGEN 11 mg/dL (9-20); GLUCOSE,RANDOM 107 mg/dL (75-110); TOTAL PROTEIN 7.6 g/dL (6.3-8.3)
[2017-03-19 16:17] LABS: CALCIUM 9.2 mg/dl (8.6-10.4)
[2017-03-19 16:20] LABS: RBC URINE 27 /hpf (0-3); URINE BACTERIA MANY (<OCC); URINE BILIRUBIN NEGATIVE (NEGATIVE); URINE BLOOD 1+ (NEGATIVE); URINE COLOR Amber (YELLOW); URINE GLUCOSE (UA) NORMAL (Normal); URINE KETONE TRACE mg/dL (NEGATIVE); URINE LEUKOCYTE ESTERASE 3+ Leu/uL (Negative); URINE PROTEIN 2+ mg/dL (NEGATIVE); URINE URIC ACID CRYSTALS RARE /hpf (<OCC); URINE UROBILINOGEN NORMAL mg/dL (0.2-1.0); WBC URINE 212 /hpf (0-5)
[2017-03-19 16:36] VITALS: RESP 18
[2017-03-19 17:30] VITALS: BP 127/82; PULSE 98; O2SAT 98
== END 2017-03-19 17:30 | disposition home or self-care (01) ==
LOC: C.ER 14:24
DX: N39.0 Urinary tract infection, site not specified (principal); B96.1 Klebsiella pneumoniae [K. pneumoniae] as the cause of diseases classified elsewhere
CPT/HCPCS: 80053; 81001; 85025; 87086; 96361; 96374; 99284; J2270; J7040

== ENCOUNTER 2017-03-20 17:51 | Emergency (ER) | payer MEDICAID ==
[2017-03-20 17:51] VITALS: BMI 44.9
[2017-03-20 18:09] VITALS: BP 145/91; PULSE 87; RESP 18; TEMP 97.7; O2SAT 98
--- NOTE | 2017-03-20 18:31 | C.PDOC ---
History Of Present Illness Patient is a 61 year old male, with PMHx of BPH, presents to the ED for evaluation of penile pain, and suparpubic abdominal pain. Of note, patient has in dwelling green catheter placed. Patient has been seen multiple times in the ER for similar complaints. Patient's last visit was yesterday, had blood work and urinalysis done which showed UTI, was discharged home with Macrobid, and Pyridium and was instructed to follow up with Urologist. Patient has been referred to several urologist and clinic, several appointments were made by the ED staff in the past which patient failed to appear to. Otherwise, patient denies any back pain, dysuria, hematuria, fever, chills, n/v/d, or any other associated symptoms at this time. Time Seen by Provider: 03/20/17 18:10 Chief Complaint (Nursing): Male Genitourinary History Per: Patient History/Exam Limitations: no limitations Onset/Duration Of Symptoms: Days Current Symptoms Are (Timing): Still Present Quality Of Discomfort: "Pain" Associated Symptoms: denies: Fever, Chills, Nausea, Vomiting, Diarrhea, Loss Of Appetite, Back Pain, Chest Pain, Constipation Alleviating Factors: None Recent travel outside of the [place]: No Additional History Per: Patient Past Medical History Reviewed: Historical Data, Nursing Documentation, Vital Signs Vital Signs: Last Vital Signs Temp 97.7 F 03/20/17 18:05 Pulse 87 03/20/17 18:05 Resp 18 03/20/17 18:05 BP 145/91 H 03/20/17 18:05 Pulse Ox 98 03/20/17 18:57 - Medical History PMH: Asthma, Benign Prostatic Hyperplasia, HTN, Chronic Kidney Disease Denies: HIV - [facility] Procedures DRAINAGE OF BLADDER WITH DRAINAGE DEVICE, VIA OPENING (02/17/17) EXCISION OF ASCENDING COLON, ENDO, DIAGN (10/20/16) EXCISION OF SIGMOID COLON, ENDO, DIAGN (10/20/16) FLUOROSCOPY OF KIDNEYS, URETERS AND BLADDER (02/17/17) INSERTION OF VAD INTO CHEST SUBCU/FASCIA, OPEN APPROACH (10/20/16) INSPECTION OF BLADDER, ENDO (02/17/17) INSPECTION OF UPPER INTESTINAL TRACT, ENDO (10/20/16) INSPECTION OF UPPER VEIN, EXTERNAL APPROACH (10/20/16) RESECTION OF PREPUCE, EXTERNAL APPROACH (02/17/17) Family History: States: Unknown Family Hx - Social History Hx Tobacco Use: No Hx Alcohol Use: No Hx Substance Use: No - Immunization History Hx Tetanus Toxoid Vaccination: No Hx Influenza Vaccination: No Hx Pneumococcal Vaccination: No Review Of Systems Except As Marked, All Systems Reviewed And Found Negative. Constitutional: Negative for: Fever, Chills Gastrointestinal: Positive for: Abdominal Pain (suparpubic). Negative for: Nausea, Vomiting, Diarrhea, Constipation Genitourinary: Positive for: Penile Pain. Negative for: Dysuria, Hematuria, Scrotal Pain Musculoskeletal: Negative for: Back Pain Physical Exam - Physical Exam Appears: Non-toxic, Chronically Ill, Other (malnourished) Skin: Normal Color, Warm, Dry Head: Atraumatic, Normacephalic Eye(s): bilateral: Normal Inspection Oral Mucosa: Moist Neck: Supple Cardiovascular: Rhythm Regular, No Murmur Respiratory: Normal Breath Sounds, No Rales, No Rhonchi, No Wheezing Gastrointestinal/Abdominal: Soft, No Tenderness Back: Normal Inspection, No CVA Tenderness Male Genital: Other (green catheter in place, urine in bag) Extremity: Bilateral: Atraumatic, Normal ROM Neurological/Psych: Oriented x3, Normal Speech, Normal Cognition ED Course And Treatment O2 Sat by Pulse Oximetry: 98 (RA) Pulse Ox Interpretation: Normal Progress Note: Plan: urine culture and urinalysis. Pt was instructed to follow up with Clinic/Urologist as was previously instructed. Disposition - Disposition Referrals: Bennett Malik MD [Staff Provider] - Niyah Malik MD [Staff Provider] - [facility] [Outside] [facility] [Outside] [facility] [Outside] Disposition: HOME/ ROUTINE Disposition Time: 18:47 Condition: STABLE Additional Instructions: Follow up with Clinic/Urologist as was previously instructed. Take medications as instructed yesterday. Return to ED if feel worse. Instructions: Urinary Leg Bag (GEN) Forms: [employer] (Lithuanian) Print Language: ITALIAN - Clinical Impression Clinical Impression: Dysuria, Penile pain, Green catheter in place - PA / CURTAIN CLEANER / Resident Statement MD/DO has reviewed & agrees with the documentation as recorded. - Scribe Statement The provider has reviewed the documentation as recorded by the Scribe Doni Seals All medical record entries made by the Scribe were at my direction and personally dictated by me. I have reviewed the chart and agree that the record accurately reflects my personal performance of the history, physical exam, medical decision making, and the department course for this patient. I have also personally directed, reviewed, and agree with the discharge instructions and disposition.
[2017-03-20 19:02] LABS: RBC URINE 8 /hpf (0-3); URINE BACTERIA OCC (<OCC); URINE BILIRUBIN NEGATIVE (NEGATIVE); URINE BLOOD 1+ (NEGATIVE); URINE COLOR Amber (YELLOW); URINE GLUCOSE (UA) NORMAL (Normal); URINE KETONE NEGATIVE (NEGATIVE); URINE LEUKOCYTE ESTERASE 3+ Leu/uL (Negative); URINE PROTEIN NEGATIVE (NEGATIVE); WBC URINE 30 /hpf (0-5)
== END 2017-03-20 19:04 | disposition home or self-care (01) ==
LOC: C.ER 17:51
DX: N48.89 Other specified disorders of penis (principal); R30.0 Dysuria

== ENCOUNTER 2017-04-24 17:35 | Emergency (ER) | payer MEDICAID ==
[2017-04-24 17:35] VITALS: BMI 44.9
[2017-04-24 18:07] VITALS: RESP 18
[2017-04-24 18:42] LABS: RBC URINE < 1 /hpf (0-3); URINE BILIRUBIN NEGATIVE (NEGATIVE); URINE BLOOD NEGATIVE (NEGATIVE); URINE COLOR Yellow (YELLOW); URINE GLUCOSE (UA) NORMAL (Normal); URINE KETONE NEGATIVE (NEGATIVE); URINE LEUKOCYTE ESTERASE NEG Leu/uL (Negative); URINE PROTEIN NEGATIVE (NEGATIVE); URINE UROBILINOGEN NORMAL mg/dL (0.2-1.0); WBC URINE < 1 /hpf (0-5)
[2017-04-24] MEDS ORDERED: Sodium Chloride 0.9% 1,000 ML IV ONE (19:04)
[2017-04-24] MEDS ORDERED: Sodium Chloride 0.9% 1,000 ML ONE (19:33)
[2017-04-24 19:42] LABS: BASO % 0.5 % (0.0-2.0); EOS % 0.4 % (0.0-4.0); HEMATOCRIT 47.3 % (35.0-51.0); LYMPH # 1.3 K/uL (1.0-4.3); MEAN CELL VOLUME 89.3 fL (80.0-94.0); MEAN CORPUSCULAR HEMOGLOBIN 30.2 pg (27.0-31.0); MEAN CORPUSCULAR HGB CONC 33.8 g/dL (33.0-37.0); MEAN PLATELET VOLUME 6.3 fL (7.2-11.7); MONO # 0.6 K/uL (0.0-0.8); MONO % 9.8 % (0.0-10.0); RED CELL DISTRIBUTION WIDTH 13.1 % (11.5-14.5); WHITE BLOOD COUNT 6.3 K/uL (4.8-10.8)
[2017-04-24 20:06] VITALS: O2SAT 98
[2017-04-24 22:08] LABS: CHLORIDE 103 mmol/L (98-107); SODIUM 137 mmol/L (132-148)
[2017-04-24 22:10] LABS: AST/SGOT 21 U/L (17-59); BILIRUBIN,TOTAL 0.7 mg/dL (0.2-1.3); CARBON DIOXIDE 26 mmol/L (22-30); GFR AFRICAN-AMERICAN > 60
[2017-04-24 22:11] LABS: ALB/GLOB RATIO 1.3 (1.0-2.1); ALKALINE PHOSPHATASE 62 U/L (38-126); ALT/SGPT 28 U/L (21-72); BLOOD UREA NITROGEN 11 mg/dL (9-20); CALCIUM 8.1 mg/dl (8.6-10.4); GLUCOSE,RANDOM 97 mg/dL (75-110); TOTAL PROTEIN 6.5 g/dL (6.3-8.3)
--- NOTE | 2017-04-24 22:31 | C.PDOC ---
History Of Present Illness Pt c/o left flank pain. Time Seen by Provider: 04/24/17 18:27 Chief Complaint (Nursing): Abdominal Pain History Per: Patient Onset/Duration Of Symptoms: Days (about 2 weeks), Waxing/Waning Current Symptoms Are (Timing): Still Present Severity: Moderate Quality Of Discomfort: "Pain" Alleviating Factors: None Additional History Per: Prior Records Past Medical History Reviewed: Historical Data, Nursing Documentation, Vital Signs Vital Signs: Last Vital Signs Temp 98 F 04/24/17 18:06 Pulse 86 04/24/17 19:20 Resp 18 04/24/17 19:20 BP 169/97 H 04/24/17 18:06 Pulse Ox 98 04/24/17 19:20 - Medical History PMH: Asthma, Benign Prostatic Hyperplasia, HTN, Chronic Kidney Disease - [facility] Procedures DRAINAGE OF BLADDER WITH DRAINAGE DEVICE, VIA OPENING (02/17/17) EXCISION OF ASCENDING COLON, ENDO, DIAGN (10/20/16) EXCISION OF SIGMOID COLON, ENDO, DIAGN (10/20/16) FLUOROSCOPY OF KIDNEYS, URETERS AND BLADDER (02/17/17) INSERTION OF VAD INTO CHEST SUBCU/FASCIA, OPEN APPROACH (10/20/16) INSPECTION OF BLADDER, ENDO (02/17/17) INSPECTION OF UPPER INTESTINAL TRACT, ENDO (10/20/16) INSPECTION OF UPPER VEIN, EXTERNAL APPROACH (10/20/16) RESECTION OF PREPUCE, EXTERNAL APPROACH (02/17/17) Family History: States: Unknown Family Hx - Social History Hx Tobacco Use: No Hx Alcohol Use: No Hx Substance Use: No - Immunization History Hx Tetanus Toxoid Vaccination: No Hx Influenza Vaccination: No Hx Pneumococcal Vaccination: No Review Of Systems Except As Marked, All Systems Reviewed And Found Negative. Constitutional: Negative for: Fever, Weakness Cardiovascular: Negative for: Chest Pain Respiratory: Negative for: Shortness of Breath Gastrointestinal: Negative for: Vomiting, Diarrhea Musculoskeletal: Negative for: Neck Pain Skin: Negative for: Rash Neurological: Negative for: Weakness, Numbness Physical Exam - Physical Exam Appears: Non-toxic, No Acute Distress Skin: Warm, Dry Head: Atraumatic, Normacephalic Eye(s): bilateral: PERRL, EOMI Neck: Normal ROM, Supple Cardiovascular: Rhythm Regular Respiratory: Normal Breath Sounds, No Accessory Muscle Use Gastrointestinal/Abdominal: Soft, No Tenderness Back: No CVA Tenderness Male Genital: No Testicular Tenderness, No Testicular Swelling, No Inguinal Tenderness, No Inguinal Swelling, No Scrotal Swelling Extremity: Normal ROM Neurological/Psych: Oriented x3, Normal Motor, Normal Sensation ED Course And Treatment - Laboratory Results Result Diagrams: 04/24/17 19:39 04/24/17 21:57 Lab Interpretation: No Acute Changes O2 Sat by Pulse Oximetry: 98 Pulse Ox Interpretation: Normal Progress Note: Pt feels much better and wants to go home. Reassessment Condition: Improved Disposition Counseled Patient/Family Regarding: Studies Performed, Diagnosis, Need For Followup, Rx Given - Disposition Referrals: Cole Paniagua [Medical Doctor] - Disposition: HOME/ ROUTINE Disposition Time: 22:31 Condition: IMPROVED Additional Instructions: Follow up with your doctor for further evaluation and treatment. Return to the ER if you develop fever, vomiting, trouble urinating, worsening of symptoms or if you have any other concerns. Instructions: Flank Pain (ED) Forms: [employer] (Martiniquais) Print Language: GHANAIAN - Clinical Impression Clinical Impression: Left flank pain
[2017-04-24 22:42] VITALS: BP 168/99; PULSE 92; TEMP 98
== END 2017-04-24 22:43 | disposition home or self-care (01) ==
LOC: C.ER 17:35
DX: R10.9 Unspecified abdominal pain (principal)
CPT/HCPCS: 80053; 81001; 83690; 85025; 96361; 96374; 96375; 99285; J1885; J7040

== ENCOUNTER 2017-07-02 15:27 | Emergency (ER) | payer MEDICAID ==
[2017-07-02 15:27] VITALS: BMI 44.9
[2017-07-02 15:37] VITALS: O2SAT 98
--- NOTE | 2017-07-02 16:53 | C.PDOC ---
History Of Present Illness 62 y/o male with PMHx of HTN and Asthma presents to ED with complaints of urinary frequency for 1 week. Patient states "I think I have a urine infection" . Patient denies back pain, fever, dysuria, penile discharge or any other complaints at this time. Time Seen by Provider: 07/02/17 16:00 Chief Complaint (Nursing): Male Genitourinary History Per: Patient History/Exam Limitations: no limitations Onset/Duration Of Symptoms: Days Current Symptoms Are (Timing): Still Present Past Medical History Reviewed: Historical Data, Nursing Documentation, Vital Signs Vital Signs: Last Vital Signs Temp 98.2 F 07/02/17 17:57 Pulse 89 07/02/17 17:57 Resp 17 07/02/17 17:57 BP 132/75 07/02/17 17:57 Pulse Ox 98 07/02/17 17:57 - Medical History PMH: Asthma, Benign Prostatic Hyperplasia, HTN, Chronic Kidney Disease Surgical History: No Surg Hx - [facility] Procedures DRAINAGE OF BLADDER WITH DRAINAGE DEVICE, VIA OPENING (02/17/17) EXCISION OF ASCENDING COLON, ENDO, DIAGN (10/20/16) EXCISION OF SIGMOID COLON, ENDO, DIAGN (10/20/16) FLUOROSCOPY OF KIDNEYS, URETERS AND BLADDER (02/17/17) INSERTION OF VAD INTO CHEST SUBCU/FASCIA, OPEN APPROACH (10/20/16) INSPECTION OF BLADDER, ENDO (02/17/17) INSPECTION OF UPPER INTESTINAL TRACT, ENDO (10/20/16) INSPECTION OF UPPER VEIN, EXTERNAL APPROACH (10/20/16) RESECTION OF PREPUCE, EXTERNAL APPROACH (02/17/17) Family History: States: No Known Family Hx - Social History Hx Tobacco Use: No Hx Alcohol Use: No Hx Substance Use: No - Immunization History Hx Tetanus Toxoid Vaccination: No Hx Influenza Vaccination: No Hx Pneumococcal Vaccination: No Review Of Systems Constitutional: Negative for: Fever, Chills Gastrointestinal: Negative for: Nausea, Vomiting, Abdominal Pain Genitourinary: Positive for: Frequency. Negative for: Dysuria, Penile Discharge , Penile Pain Musculoskeletal: Negative for: Back Pain Skin: Negative for: Rash Physical Exam - Physical Exam Appears: Non-toxic, No Acute Distress Skin: Warm, Dry, No Rash Head: Atraumatic, Normacephalic Oral Mucosa: Moist Neck: Normal ROM, Supple Chest: Symmetrical Cardiovascular: Rhythm Regular Respiratory: Normal Breath Sounds, No Rales, No Rhonchi, No Wheezing Gastrointestinal/Abdominal: Soft, No Tenderness, No Guarding, No Rebound Back: Normal Inspection, No CVA Tenderness Neurological/Psych: Oriented x3 ED Course And Treatment O2 Sat by Pulse Oximetry: 98 (RA) Pulse Ox Interpretation: Normal Medical Decision Making Medical Decision Making: Progress: Patient Urine was normal. Patient discharged with Ciprofloxacin and instructed follow up with Dr. Robbins in 2 days Assessment: Urinary frequency/dysuria Disposition - Disposition Disposition: HOME/ ROUTINE Condition: STABLE Additional Instructions: follow up with urologist in 2 days call to make an appointment take medications as prescribed return to hospital if symptoms worsens or progress Prescriptions: Ciprofloxacin HCl [Cipro] 500 mg PO BID #20 tab Instructions: Dysuria (ED) Forms: Gen Discharge Inst Turkish, [facility] (Serbian), [employer] (Turkish) Print Language: BANGLADESHI - Clinical Impression Clinical Impression: Dysuria, Dysuria-frequency syndrome - Scribe Statement The provider has reviewed the documentation as recorded by the Ashanti Ponce All medical record entries made by the Ashanti were at my direction and personally dictated by me. I have reviewed the chart and agree that the record accurately reflects my personal performance of the history, physical exam, medical decision making, and the department course for this patient. I have also personally directed, reviewed, and agree with the discharge instructions and disposition.
[2017-07-02 17:14] LABS: RBC URINE 2 /hpf (0-3); URINE BACTERIA RARE (<OCC); URINE BILIRUBIN NEGATIVE (NEGATIVE); URINE BLOOD NEGATIVE (NEGATIVE); URINE COLOR Yellow (YELLOW); URINE GLUCOSE (UA) NORMAL (Normal); URINE KETONE 1+ mg/dL (NEGATIVE); URINE LEUKOCYTE ESTERASE NEG Leu/uL (Negative); URINE PROTEIN NEGATIVE (NEGATIVE); URINE UROBILINOGEN NORMAL mg/dL (0.2-1.0); WBC URINE < 1 /hpf (0-5)
[2017-07-02 17:58] VITALS: BP 132/75; PULSE 89; RESP 17; TEMP 98.2
== END 2017-07-02 18:08 | disposition home or self-care (01) ==
LOC: C.ER 15:27
DX: R35.0 Frequency of micturition (principal); R30.0 Dysuria

== ENCOUNTER 2017-12-28 17:31 | Inpatient (IN) | payer MEDICAID ==
[2017-12-28 17:31] VITALS: BMI 44.9
--- NOTE | 2017-12-28 18:00 | C.PDOC ---
History Of Present Illness <Raissa Underwood - Last Filed: 12/28/17 18:38> <Russel Nagy R - Last Filed: 12/29/17 00:02> 62 y/o male complaining of left groin mass. He noted the mass a few months ago and noticed that it has been growing, and has become painful. Patient also complains of weight loss and difficulty urinating. (Raissa Underwood) History Per: Patient Onset/Duration Of Symptoms: Days (30+) Current Symptoms Are (Timing): Still Present Severity: Moderate Quality Of Discomfort: "Pain" Associated Symptoms: Loss Of Appetite, Urinary Symptoms. denies: Fever, Chills , Nausea, Vomiting, Diarrhea, Back Pain Recent travel outside of the [place]: No Additional History Per: Patient <Raissa Underwood - Last Filed: 12/28/17 18:38> <Russel Nagy R - Last Filed: 12/29/17 00:02> Time Seen by Provider: 12/28/17 17:50 Chief Complaint (Nursing): Male Genitourinary Past Medical History - Medical History PMH: Asthma, Benign Prostatic Hyperplasia, HTN, Chronic Kidney Disease Denies: HIV Surgical History: No Surg Hx Family History: States: Unknown Family Hx - Social History Hx Tobacco Use: No Hx Alcohol Use: No Hx Substance Use: No - Immunization History Hx Tetanus Toxoid Vaccination: No Hx Influenza Vaccination: No Hx Pneumococcal Vaccination: No <Raissa Underwood - Last Filed: 12/28/17 18:38> Vital Signs: Last Vital Signs Temp 98.1 F 12/28/17 21:59 Pulse 103 H 12/28/17 21:59 Resp 20 12/28/17 21:59 BP 119/79 12/28/17 21:59 Pulse Ox 97 12/28/17 21:59 - [facility] Procedures DRAINAGE OF BLADDER WITH DRAINAGE DEVICE, VIA OPENING (02/17/17) EXCISION OF ASCENDING COLON, ENDO, DIAGN (10/20/16) EXCISION OF SIGMOID COLON, ENDO, DIAGN (10/20/16) FLUOROSCOPY OF KIDNEYS, URETERS AND BLADDER (02/17/17) INSERTION OF VAD INTO CHEST SUBCU/FASCIA, OPEN APPROACH (10/20/16) INSPECTION OF BLADDER, ENDO (02/17/17) INSPECTION OF UPPER INTESTINAL TRACT, ENDO (10/20/16) INSPECTION OF UPPER VEIN, EXTERNAL APPROACH (10/20/16) RESECTION OF PREPUCE, EXTERNAL APPROACH (02/17/17) Review Of Systems Except As Marked, All Systems Reviewed And Found Negative. <Raissa Underwood - Last Filed: 12/28/17 18:38> Physical Exam - Physical Exam Appears: Well, Toxic, No Acute Distress Skin: Normal Color, Warm, Dry, Other (multiple cutaneous masses ranging in size from 3mm-10cm that are soft, skin-colored, and non tender. ) Head: Atraumatic Nose: Normal Neck: Normal Chest: Deformity (scoliosis and chest wall deformity) Cardiovascular: Rhythm Regular Respiratory: Normal Breath Sounds Gastrointestinal/Abdominal: Normal Exam, Bowel Sounds, Soft, No Tenderness, Other (Left groin: skin -colored, firm, immobile, tender mass that about 3cm. ) Back: Other (scoliosis, gross deformities) Extremity: Normal ROM Neurological/Psych: Oriented x3 <Raissa Underwood - Last Filed: 12/28/17 18:38> ED Course And Treatment - Laboratory Results Result Diagrams: 12/28/17 18:23 O2 Sat by Pulse Oximetry: 98 <Raissa Underwood - Last Filed: 12/28/17 18:38> - Laboratory Results Result Diagrams: 12/28/17 18:23 12/28/17 18:23 <Russel Nagy - Last Filed: 12/29/17 00:02> Medical Decision Making <Raissa Underwood - Last Filed: 12/28/17 18:38> <Russel Nagy - Last Filed: 12/29/17 00:02> Medical Decision Making: Impression: cutaneous mass Plan: - Labs - CT Abdomen/Pelvis case was signed out to at 7 pm. Scribe Attestation: Documented by Kathryn Longoria acting as a scribe for TRUMAN Osborn. Scribe Attestation: All medical record entries made by the Scribe were at my direction and personally dictated by me. I have reviewed the chart and agree that the record accurately reflects my personal performance of the history, physical exam, medical decision making, and the department course for this patient. I have also personally directed, reviewed, and agree with the discharge instructions and disposition. (Raissa Underwood) Disposition - Disposition Disposition Time: 19:00 <Raissa Underwood - Last Filed: 12/28/17 18:38> Discussed With : Skip Lassiter Doctor Will See Patient In The: Hospital Counseled Patient/Family Regarding: Diagnosis - Disposition Disposition Time: 23:58 <Russel Nagy - Last Filed: 12/29/17 00:02> - Disposition Disposition: HOSPITALIZED Condition: STABLE Forms: [employer] (Maori) - Clinical Impression Clinical Impression: Left groin mass, Perianal mass Physician Patient Turnover Patient Signed Over To: Russel Nagy Handoff Comments: pending CT abdomen/pelvis <Raissa Underwood - Last Filed: 12/28/17 18:38>
[2017-12-28] MEDS ORDERED: Sodium Chloride 0.9% 500 ML IV STA (18:04)
[2017-12-28] MEDS ORDERED: Iohexol 240 (50 ml) PO STA (18:04)
[2017-12-28 18:27] LABS: BASO % 0.4 % (0.0-2.0); EOS % 0.5 % (0.0-4.0); HEMOGLOBIN 15.6 g/dL (12.0-18.0); LYMPH # 1.7 K/uL (1.0-4.3); LYMPH % 23.9 % (20.0-40.0); MEAN CELL VOLUME 88.8 fL (80.0-94.0); MEAN CORPUSCULAR HEMOGLOBIN 30.8 pg (27.0-31.0); MEAN CORPUSCULAR HGB CONC 34.7 g/dL (33.0-37.0); MEAN PLATELET VOLUME 6.3 fL (7.2-11.7); MONO # 0.7 K/uL (0.0-0.8); MONO % 9.7 % (0.0-10.0); NEUT # 4.6 K/uL (1.8-7.0); NEUT % 65.5 % (50.0-75.0); RBC 5.07 Mil/uL (4.40-5.90); RED CELL DISTRIBUTION WIDTH 12.8 % (11.5-14.5)
[2017-12-28 18:36] LABS: URINE BILIRUBIN NEGATIVE (NEGATIVE); URINE BLOOD 1+ (NEGATIVE); URINE CLARITY Clear (Clear); URINE COLOR Yellow (YELLOW); URINE GLUCOSE (UA) NORMAL (Normal); URINE LEUKOCYTE ESTERASE NEG Leu/uL (Negative); URINE PROTEIN NEGATIVE (NEGATIVE); URINE UROBILINOGEN NORMAL mg/dL (0.2-1.0)
[2017-12-28] MEDS ORDERED: Sodium Chloride 0.9% 500 ML IV ONE (18:39)
[2017-12-28 18:59] LABS: ALB/GLOB RATIO 1.2 (1.0-2.1); ALBUMIN 4.2 g/dL (3.5-5.0); ALT/SGPT 14 U/L (21-72); AST/SGOT 26 U/L (17-59); BLOOD UREA NITROGEN 14 mg/dL (9-20); CALCIUM 9.5 mg/dl (8.6-10.4); GFR AFRICAN-AMERICAN > 60; GFR NON-AFRICAN AMERICAN > 60
[2017-12-28] MEDS ORDERED: Iohexol 240 (50 ml) ONE (19:01)
[2017-12-28] MEDS ORDERED: Iodixanol 320 MG/ML 100 ML BOTTLE IV ONE (20:30)
--- NOTE | 2017-12-28 23:07 | CT ---
EXAM: CT Abdomen and Pelvis With Intravenous Contrast CLINICAL HISTORY: 62 years old, male; Pain; Other: Left groin mass, weight loss; Chest pain and other: Left groin mass, weight loss; Prior surgery; Patient HX: 02-23-17 TECHNIQUE: Axial computed tomography images of the abdomen and pelvis with intravenous contrast. All CT scans at this facility use one or more dose reduction techniques, viz.: automated exposure control; ma/kV adjustment per patient size (including targeted exams where dose is matched to indication; i.e. head); or iterative reconstruction technique. Coronal and sagittal reformatted images were created and reviewed. CONTRAST: 100 mL of [id number] administered intravenously. COMPARISON: No relevant prior studies available. FINDINGS: ABDOMEN: Liver: There is a focal liver hypodensity that cannot be further characterized on the current examination. There is a 6 mm focal liver hypodensity that cannot be further characterized on the current examination. Gallbladder and bile ducts: Unremarkable. No calcified stones. No ductal dilation. Pancreas: Unremarkable. No mass. No ductal dilation. Spleen: Unremarkable. No splenomegaly. Adrenals: Unremarkable. No mass. Kidneys and ureters: Unremarkable. No solid mass. No hydronephrosis. Stomach and bowel: There is a perianal mass measuring 5.1 x 4.3 x 4.5 cm most consistent with malignancy. No obstruction. There is no wall thickening or pericolonic stranding to suggest colitis. PELVIS: Appendix: A normal appendix is identified. Bladder: Unremarkable. No mass. Reproductive: Unremarkable as visualized. ABDOMEN and PELVIS: Intraperitoneal space: Unremarkable. No free air. No significant fluid collection. Bones/joints: Marked scoliosis of the spine. No acute fracture. No dislocation. Soft tissues: Unremarkable. Vasculature: The aorta demonstrates mild atherosclerotic calcification. No abdominal aortic aneurysm. Lymph nodes: There is a low density mass in the left groin measuring 2.5 x 3.0 x 3 cm suspicious for metastatic lymph nodes. IMPRESSION: Perianal mass suspicious for malignancy. Other diagnostic considerations include abscess. Left groin mass/adenopathy suspicious for metastasis. EXAM: CT Chest With Intravenous Contrast CLINICAL HISTORY: 62 years old, male; Pain; Other: Left groin mass, weight loss; Chest pain and other: Left groin mass, weight loss; Prior surgery; Patient HX: 02-23-17 TECHNIQUE: Axial computed tomography images of the chest with intravenous contrast. All CT scans at this facility use one or more dose reduction techniques, viz.: automated exposure control; ma/kV adjustment per patient size (including targeted exams where dose is matched to indication; i.e. head); or iterative reconstruction technique. Coronal and sagittal reformatted images were created and reviewed. CONTRAST: 100 mL of [id number] administered intravenously. COMPARISON: No relevant prior studies available. FINDINGS: Lungs: Mild to moderate paraseptal and centrilobular emphysematous changes are present with bleb formation. Pleural space: Unremarkable. No pneumothorax. No significant effusion. Heart: Unremarkable. No cardiomegaly. No significant pericardial effusion. Bones/joints: Marked scoliosis of the thoracic spine. No acute fracture. No dislocation. Soft tissues: Unremarkable. Vasculature: Unremarkable. No thoracic aortic aneurysm. Lymph nodes: Unremarkable. No enlarged lymph nodes. IMPRESSION: Emphysema. Marked scoliosis. No pulmonary mass.
[2017-12-29] MEDS ORDERED: Sodium Chloride 0.9% 1,000 ML IV SCH (01:45)
--- NOTE | 2017-12-29 01:51 | CP.PCM.HP ---
<David Muller - Last Filed: 12/29/17 05:52> History of Present Illness - History of Present Illness History of Present Illness: This is a 62 yo male with hx of rectal tumor/cancer, s/p chemotherapy, asthma, HTN, scoliosis, originally from [place], presenting to [facility] ER with chief complaint of rectal pain. The pain is 9/10 and has been going on for 2 months. It is constant. He reports hx of rectal cancer that he says was diagnosed by a surgeon nearby. He says he was operated on for this rectal cancer last year. Records indicate he had a partial proctectomy with anastomosis. He reports going through 3-4 rounds of chemo. Does not know name of oncologist. Denies any radiation. Denies any blood in his stool. Says pain was getting so bad so he decided to come in. Does report weight loss. Does not have a current PMD. PMH: rectal cancer, scoliosis, groin mass, asthma, HTN, neurofibromas, paraphimosis PSH: sx for rectal cancer, circumcision, port placement FH: denies Allergies: NKDA Home meds: bp and pain med -cannot say Social hx: former smoker. does not drink. former cocaine user. from [place]. lives with daughter in apt. Present on Admission - Present on Admission Any Indicators Present on Admission: No History of DVT/PE: No History of Uncontrolled Diabetes: No Urinary Catheter: No Decubitus Ulcer Present: No Review of Systems - Review of Systems All systems: reviewed and no additional remarkable complaints except Review of Systems: negative except per HPI. Past Patient History - Infectious Disease Hx of Infectious Diseases: None - Past Medical History & Family History Past Medical History?: Yes - Past Social History Smoking Status: Former Smoker Chewing Tobacco Use: No Cigar Use: No Alcohol: None Drugs: Denies Home Situation {Lives}: With Family Domestic Violence: Negative - CARDIAC Hx Hypertension: Yes - PULMONARY Hx Asthma: Yes - NEUROLOGICAL Hx Neurological Disorder: No Other/Comment: poor historian vs forgetfulness - HEENT Hx HEENT Problems: No - RENAL Hx Chronic Kidney Disease: Yes - ENDOCRINE/METABOLIC Hx Endocrine Disorders: No - HEMATOLOGICAL/ONCOLOGICAL Hx Human Immunodeficiency Virus (HIV): No - INTEGUMENTARY Hx Dermatological Problems: Yes Other/Comment: generalized skin lessions - MUSCULOSKELETAL/RHEUMATOLOGICAL Hx Musculoskeletal Disorders: No Hx Falls: No - GASTROINTESTINAL Hx Gastrointestinal Disorders: No Hx Hemorrhoids: Yes Other/Comment: rectal CA - GENITOURINARY/GYNECOLOGICAL Hx Urinary Tract Infection: Yes - PSYCHIATRIC Hx Substance Use: No - SURGICAL HISTORY Hx Surgeries: Yes Hx Herniorrhaphy: Yes - ANESTHESIA Hx Anesthesia: Yes Hx Anesthesia Reactions: No Meds Allergies/Adverse Reactions: Allergies Allergy/AdvReac Type Severity Reaction Status Date / Time No Known Allergies Allergy Verified 07/02/17 15:33 Physical Exam - Constitutional Appears: Unkempt, Older Than Stated Age, Chronically Ill - Head Exam Head Exam: ATRAUMATIC, NORMAL INSPECTION, NORMOCEPHALIC - Eye Exam Eye Exam: EOMI - ENT Exam ENT Exam: Mucous Membranes Dry - Neck Exam Neck exam: Positive for: Normal Inspection - Respiratory Exam Respiratory Exam: NORMAL BREATHING PATTERN. absent: Respiratory Distress - Cardiovascular Exam Cardiovascular Exam: +S1, +S2 - GI/Abdominal Exam GI & Abdominal Exam: Normal Bowel Sounds, Soft. absent: Tenderness - Rectal Exam Rectal Exam: NORMAL INSPECTION. absent: Bloody Stool Additional comments: can feel hard mass within rectum - Exam Exam: absent: NORMAL INSPECTION (left inguinal lymphadenopathy ) - Extremities Exam Extremities exam: Positive for: full ROM. Negative for: normal inspection ( multiple scattered neurofibromas ) - Back Exam Back exam: NORMAL INSPECTION - Neurological Exam Neurological exam: Alert, Oriented x3 - Psychiatric Exam Psychiatric exam: Flat Affect - Skin Skin Exam: Dry, Intact, Normal Color, Warm Additional comments: cafe au lait spot left leg Results - Vital Signs Recent Vital Signs: Last Vital Signs Temp 98.1 F 12/29/17 00:11 Pulse 105 H 12/29/17 00:11 Resp 20 12/29/17 00:11 BP 148/90 12/29/17 00:11 Pulse Ox 97 12/29/17 00:11 - Labs Result Diagrams: 12/28/17 18:23 12/28/17 18:23 Labs: Laboratory Results - last 24 hr 12/28/17 12/28/17 12/28/17 18:23 18:23 18:31 WBC 7.0 RBC 5.07 Hgb 15.6 Hct 45.1 MCV 88.8 MCH 30.8 MCHC 34.7 RDW 12.8 Plt Count 292 MPV 6.3 L Neut % (Auto) 65.5 Lymph % (Auto) 23.9 [place] % (Auto) 9.7 Eos % (Auto) 0.5 Baso % (Auto) 0.4 Neut # (Auto) 4.6 Lymph # (Auto) 1.7 [place] # (Auto) 0.7 Eos # (Auto) 0.0 Baso # (Auto) 0.0 Sodium 138 Potassium 4.6 Chloride 99 Carbon Dioxide 29 Anion Gap 15 BUN 14 Creatinine 0.6 L Est GFR ( Amer) > 60 Est GFR (Non-Af Amer) > 60 Random Glucose 97 Calcium 9.5 Total Bilirubin 0.8 AST 26 ALT 14 L D Alkaline Phosphatase 78 Total Protein 7.8 Albumin 4.2 Globulin 3.5 Albumin/Globulin Ratio 1.2 Urine Color Yellow Urine Clarity Clear Urine pH 5.0 Ur Specific [place] 1.015 Urine Protein Negative Urine Glucose (UA) Normal Urine Ketones Trace Urine Blood 1+ H Urine Nitrate Negative Urine Bilirubin Negative Urine Urobilinogen Normal Ur Leukocyte Esterase Neg Urine WBC (Auto) < 1 Urine RBC (Auto) 1 Assessment & Plan - Assessment and Plan (Free Text) Assessment: This is a 62 yo male, originally from [place], admitted for 1. Rectal pain -pt has rectal mass and lymphadenopathy -reports previous operation -percocet for pain -general sx consult. Dr. Abraham Seals. recs appreciated. -NS 100 cc/hr 2. Hx of HTN -continue to monitor 3. hx of asthma -duonebs as needed 3.5 hx of neurofibromas -continue to monitor 4. GI/DVT ppx -SCDs -protonix discussed with Dr. Lassiter <Skip Lassiter P - Last Filed: 12/29/17 06:56> Results - Vital Signs Recent Vital Signs: Last Vital Signs Temp 97.9 F 12/29/17 02:28 Pulse 109 H 12/29/17 02:28 Resp 20 12/29/17 02:28 BP 150/95 H 12/29/17 02:28 Pulse Ox 96 12/29/17 02:28 - Labs Result Diagrams: 12/28/17 18:23 12/28/17 18:23 Labs: Laboratory Results - last 24 hr 12/28/17 12/28/17 12/28/17 18:23 18:23 18:31 WBC 7.0 RBC 5.07 Hgb 15.6 Hct 45.1 MCV 88.8 MCH 30.8 MCHC 34.7 RDW 12.8 Plt Count 292 MPV 6.3 L Neut % (Auto) 65.5 Lymph % (Auto) 23.9 [place] % (Auto) 9.7 Eos % (Auto) 0.5 Baso % (Auto) 0.4 Neut # (Auto) 4.6 Lymph # (Auto) 1.7 [place] # (Auto) 0.7 Eos # (Auto) 0.0 Baso # (Auto) 0.0 Sodium 138 Potassium 4.6 Chloride 99 Carbon Dioxide 29 Anion Gap 15 BUN 14 Creatinine 0.6 L Est GFR ( Amer) > 60 Est GFR (Non-Af Amer) > 60 Random Glucose 97 Calcium 9.5 Total Bilirubin 0.8 AST 26 ALT 14 L D Alkaline Phosphatase 78 Total Protein 7.8 Albumin 4.2 Globulin 3.5 Albumin/Globulin Ratio 1.2 Urine Color Yellow Urine Clarity Clear Urine pH 5.0 Ur Specific [place] 1.015 Urine Protein Negative Urine Glucose (UA) Normal Urine Ketones Trace Urine Blood 1+ H Urine Nitrate Negative Urine Bilirubin Negative Urine Urobilinogen Normal Ur Leukocyte Esterase Neg Urine WBC (Auto) < 1 Urine RBC (Auto) 1 Attending/Attestation - Attestation I have personally seen and examined this patient.: Yes I have fully participated in the care of the patient.: Yes I have reviewed all pertinent clinical information: Yes Notes (Text): Assessment Painful recal mass with left groin ln suspected as mets, pt has h/o rectal cancer about 2 yrs back with some treatment details not available. Severe scoliosis Skin lesions likely neurofibromas, cafe au lait spot atleast on left thigh clinically dry Plan Surgery consult Haem-onc consult Gi/dvt prophylaxis pain control, ivf See orders for detail.
[2017-12-29] MEDS: Oxycodone/Acetaminophen 5/325 mg Tab PO PRN ×2 (04:38→18:08)
--- NOTE | 2017-12-29 08:16 | RAD ---
PROCEDURE: CHEST RADIOGRAPH, 1 VIEW HISTORY: left groin mass COMPARISON: Chest radiograph dated 02/17/2017. FINDINGS: LUNGS: Clear. PLEURA: No pneumothorax or pleural fluid seen. CARDIOVASCULAR: Atherosclerotic aortic calcifications. Cardiomediastinal silhouette within normal limits. OSSEOUS STRUCTURES: Stable severe thoracic levoscoliosis. Unchanged. VISUALIZED UPPER ABDOMEN: Normal. OTHER FINDINGS: Right internal jugular access chest port, unchanged. IMPRESSION: Stable severe thoracic levoscoliosis. No focal consolidation or pleural effusion.
[2017-12-29] MEDS: Hydrocortisone 2.5% Rectal Cream(30 gm) PR SCH ×2 (09:59→18:06)
[2017-12-29 17:09] LABS: INR 1.1; PROTHROMBIN TIME 12.3 SECONDS (9.7-12.2)
--- NOTE | 2017-12-29 17:32 | CP.PCM.PN ---
<Neha Luna - Last Filed: 12/29/17 17:27> Subjective - Date & Time of Evaluation Date of Evaluation: 12/29/17 Time of Evaluation: 09:00 - Subjective Subjective: Medicine Note for Hospitalist Service- Dr. Rosales Patient was seen and examined at bedside. Admitted to rectal pain and discomfort. Denied fever, chills, headaches, chest pain, shortness of breath, abdominal pain, n/v/d/c, or urinary symptoms. Objective - Vital Signs/Intake and Output Vital Signs (last 24 hours): Temp Pulse Resp BP Pulse Ox 97.9 F 98 H 20 145/96 H 98 12/29/17 15:00 12/29/17 15:00 12/29/17 15:00 12/29/17 15:00 12/29/17 15:00 Intake and Output: 12/29/17 12/29/17 06:59 18:59 Intake Total 1280 Balance 1280 - Medications Medications: Current Medications Doxazosin Mesylate (Cardura) 2 mg PO DAILY [facility] Last Admin: 12/29/17 10:24 Dose: 2 mg Finasteride (Proscar) 5 mg PO DAILY [facility] Last Admin: 12/29/17 10:24 Dose: 5 mg Hydrocortisone (Anusol-Hc) [address] BID [facility] Last Admin: 12/29/17 09:59 Dose: 1 applic Oxycodone/Acetaminophen (Percocet 5/325 Mg Tab) 1 tab PO Q6H PRN PRN Reason: Pain, severe (8-10) Stop: 01/01/18 01:44 Last Admin: 12/29/17 04:38 Dose: 1 tab Pantoprazole Sodium (Protonix Inj) 40 mg IVP DAILY [facility] Last Admin: 12/29/17 09:59 Dose: 40 mg - Labs Labs: 12/28/17 18:23 12/28/17 18:23 PT 12.3 SECONDS (9.7-12.2) H 12/29/17 16:47 INR 1.1 12/29/17 16:47 APTT 36 SECONDS (21-34) H 12/29/17 16:47 - Constitutional Appears: Chronically Ill - Head Exam Head Exam: NORMAL INSPECTION, NORMOCEPHALIC - Eye Exam Eye Exam: EOMI, Normal appearance. absent: Nystagmus, Scleral icterus Pupil Exam: NORMAL ACCOMODATION - ENT Exam ENT Exam: Mucous Membranes Moist - Neck Exam Neck Exam: Normal Inspection. absent: Lymphadenopathy - Respiratory Exam Respiratory Exam: Clear to Ausculation Bilateral, NORMAL BREATHING PATTERN - Cardiovascular Exam Cardiovascular Exam: REGULAR RHYTHM - GI/Abdominal Exam GI & Abdominal Exam: Soft, Normal Bowel Sounds. absent: Distended, Tenderness, Organomegaly - Rectal Exam Rectal Exam: Deferred - Extremities Exam Extremities Exam: absent: Calf Tenderness, Pedal Edema, Tenderness - Neurological Exam Neurological Exam: Alert, Awake, Oriented x3 - Skin Additional comments: multiple scattered neurofibromas all throughout body. Cafe au lait spots noted on both axilla, thighs, lower back. Assessment and Plan - Assessment and Plan (Free Text) Assessment: This is a 62M with PMHx of mucinous adenocarcinoma (diagnosed 10/2016) s/p chemotherapy (3-4 sessions) and partial proctectomy with proctoanal anastamosis 10/21/16, Neurofibromas, Scoliosis, HTN, HLD, COPD,and paraphimosis- s/p circumcision who presented with rectal pain. Patient is for biopsy of rectal mass on 12/30/[address] Rauno. Plan: Rectal Mass - General Surgery consulted -Dr. Ruano - plan for biopsy of rectal mass on - Heme/Onc consulted - Dr. Márquez - help appreciated - History of mucinous adenocarcinoma (diagnosed 10/2016) s/p chemotherapy (3-4 sessions, unclear why he did not continue) and partial proctectomy with proctoanal anastamosis 10/21/16 Imaging: - CT chest, ab, pelvis: Rectal mass noted 5.1 x 4.3 x 4.5 cm. LAD noted left groin measuring 2.5 x 3.0 x 3cm suspicious for metastatic disease Management: - Anusol as needed - Percocet PRN - Patient is medically cleared for surgical intervention Incidental liver hypodense lesion - Noted on CT scan 6mm focal lesion Hx Neurofibromas Hx BPH - Restarted home medications: Proscar, Cardura Hx Scoliosis Hx HTN Hx HLD Hx COPD Hx Paraphimosis s/p circumcision Prophylaxis - GI: Protonix - DVT: SCDs, VTE c/i 2/2 biopsy - Palliative Care Consult Disposition: Pending pathology of rectal mass biopsy to determine treatment plan. JUDIE Rosales, Neha Luna DO, PGY-1 <Darlene Rosales V - Last Filed: 12/30/17 08:00> Objective - Vital Signs/Intake and Output Vital Signs (last 24 hours): Temp Pulse Resp BP Pulse Ox 98.4 F 90 20 122/76 97 12/29/17 23:05 12/29/17 23:05 12/29/17 23:05 12/29/17 23:05 12/29/17 23:05 Intake and Output: 12/30/17 12/30/17 06:59 18:59 Intake Total 320 Output Total 100 Balance 220 - Medications Medications: Current Medications Doxazosin Mesylate (Cardura) 2 mg PO DAILY [facility] Last Admin: 12/29/17 10:24 Dose: 2 mg Finasteride (Proscar) 5 mg PO DAILY [facility] Last Admin: 12/29/17 10:24 Dose: 5 mg Hydrocortisone (Anusol-Hc) [address] BID [facility] Last Admin: 12/29/17 18:06 Dose: 1 applic Oxycodone/Acetaminophen (Percocet 5/325 Mg Tab) 1 tab PO Q6H PRN PRN Reason: Pain, severe (8-10) Stop: 01/01/18 01:44 Last Admin: 12/29/17 18:08 Dose: 1 tab Pantoprazole Sodium (Protonix Inj) 40 mg IVP DAILY [facility] Last Admin: 12/29/17 09:59 Dose: 40 mg - Labs Labs: 12/28/17 18:23 12/28/17 18:23 PT 12.3 SECONDS (9.7-12.2) H 12/29/17 16:47 INR 1.1 12/29/17 16:47 APTT 36 SECONDS (21-34) H 12/29/17 16:47 Attending/Attestation - Attestation I have personally seen and examined this patient.: Yes I have fully participated in the care of the patient.: Yes I have reviewed all pertinent clinical information, including history, physical exam and plan: Yes Notes (Text): This is late computer entry for 12/29/17. patient seen, examined and case discussed with day-time resident. Patient seen with resident, reporting pain in the anal area, noting mass in the orifice on exam, reports it very painful. Patient reports unintentional weight loss about 5lbs. Case discussed with surgery, Dr Rauno who has previously operated on the patient, recommend for anal biopsy and biopsy of palpable inguinal lymphadenopathy shared concerns for anal cancer. Patient has previously per review of EMR, biopy in October 30 2016 colonoic mucosa showing focal marked acute and chronic inflammation, mucosal ulceration, granulation tissue and marked reactive epithelial changes, negative for viral cyopathic changes or malignancy and biopsy in 08/11/17 showing porition of colonic wall with serrated adenoma, hyperplastic change, and rectal mucinous adenoma. Patient during that hospitalization had been recommended for concurrent radiation and chemo neoadjuvant as outpatient per Dr. Castaneda's note. Patient had completed visits with radiation oncology and chemotherapy about 3-4 times, but has not returned back since 2017. Patient previously was suffering from urinary retention which he reports has resolved. When I ask him, why he did not go back to his oncologist he cannot tell me why. Assessment/Plan 1) Rectal Mass History of Mucinous Adenocarcinoma Prior history of colonic polyps * General Surgery consulted -Dr. Ruano - plan for biopsy of rectal mass on * Heme/Onc consulted - Dr. Márquez - help appreciated * We will need to call Dr. Bev Castaneda's office to see if patient remains a patient of hers. * History of mucinous adenocarcinoma (diagnosed 10/2016) s/p chemotherapy (3-4 sessions, unclear why he did not continue) and partial proctectomy with proctoanal anastamosis 10/21/16 * EUS (11/01/16): [id number] evidence of internal and sphincter invasion by EUS criteria. No lymph nodes were seen in perirectal region,, in a peritumoral location during endosonographic examination of the anal cancer, rectum, and sigmoid colon. * Imaging: * CT chest, ab, pelvis: Rectal mass noted 5.1 x 4.3 x 4.5 cm. LAD noted left groin measuring 2.5 x 3.0 x 3cm suspicious for metastatic disease * Management: * Anusol as needed * Percocet PRN * Patient is medically optimized for surgical intervention. patient's ekg showing sinus tachycardia, suspecting secondary to pain. Chest xray: stable severe thoracic levoscolilosis. No focal consolidation or pleural effusion. Per detskys criteria, had is considered low cardiac risk, subject to class 6% complications based on abnormal ekg. Surgery and anesthesia to discuss risk and benefits of procedure prior to procedure with patient. 2) Incidental liver hypodense lesion * Noted on CT scan 6mm focal lesion 3) Hx Neurofibromas * appears; however patient has not had genetic testing to confirm nor skin biopsy 4) Hx BPH * Restarted home medications: Proscar 5mg PO daily, Cardura 2mg PO daily 5) Hx Scoliosis 6) Hx HTN * Blood pressure control * will continue to follow 7) Hx HLD * check lipid panel * Patient is currently not on a statin 8) Hx COPD * patient is not in acute exacerbation * will add duonebs PRN, advair 9) Hx Paraphimosis * s/p circumcision 10) Prophylaxis * GI: Protonix 40mg IVQ daily * DVT: SCDs, VTE c/i 2/2 biopsy * will cancel Palliative Care Consult until we receive result of anal biospy Disposition: Pending pathology of rectal mass biopsy to determine treatment plan.
[2017-12-29] MEDS ORDERED: DiphenhydrAMINE 12.5 mg/5 ml LIQ UD (5 ml) PO ONE (22:41)
[2017-12-30 07:28] LABS: BASO % 0.4 % (0.0-2.0); EOS # 0.1 K/uL (0.0-0.7); EOS % 0.9 % (0.0-4.0); HEMOGLOBIN 14.3 g/dL (12.0-18.0); LYMPH # 1.4 K/uL (1.0-4.3); LYMPH % 20.3 % (20.0-40.0); MEAN CELL VOLUME 88.4 fL (80.0-94.0); MEAN CORPUSCULAR HEMOGLOBIN 30.9 pg (27.0-31.0); MEAN CORPUSCULAR HGB CONC 34.9 g/dL (33.0-37.0); MEAN PLATELET VOLUME 6.6 fL (7.2-11.7); MONO # 0.7 K/uL (0.0-0.8); MONO % 10.2 % (0.0-10.0); NEUT # 4.6 K/uL (1.8-7.0); NEUT % 68.2 % (50.0-75.0); RBC 4.62 Mil/uL (4.40-5.90); WHITE BLOOD COUNT 6.7 K/uL (4.8-10.8)
[2017-12-30 07:50] LABS: ALB/GLOB RATIO 1.2 (1.0-2.1); ALBUMIN 3.8 g/dL (3.5-5.0); ALT/SGPT 23 U/L (21-72); AST/SGOT 23 U/L (17-59); BLOOD UREA NITROGEN 16 mg/dL (9-20); GFR AFRICAN-AMERICAN > 60; GFR NON-AFRICAN AMERICAN > 60
[2017-12-30] MEDS ORDERED: Albuterol-Ipratrop 3 mg / 0.5 (3 ml) UD INH PRN (08:00)
[2017-12-30] MEDS: Fluticasone-Salmeterol 250-50mcg Diskus INH SCH ×2 (08:14→19:26)
[2017-12-30] MEDS: Hydrocortisone 2.5% Rectal Cream(30 gm) PR SCH ×2 (09:43→18:00)
--- NOTE | 2017-12-30 11:04 | CP.PCM.PN ---
<YoniskainNeha - Last Filed: 12/30/17 10:57> Subjective - Date & Time of Evaluation Date of Evaluation: 12/30/17 Time of Evaluation: 07:00 - Subjective Subjective: Medicine Note for Hospitalist Service- Dr. Rosales Patient was seen and examined at bedside. Admitted to rectal pain and discomfort. Patient is for rectal mass and LAD biopsy today with Dr. Ruano at 1:30pm. Denied fever, chills, headaches, chest pain, shortness of breath, abdominal pain, n/v/d/c, or urinary symptoms. Objective - Vital Signs/Intake and Output Vital Signs (last 24 hours): Temp Pulse Resp BP Pulse Ox 98.2 F 89 20 125/76 97 12/30/17 07:20 12/30/17 07:20 12/30/17 07:20 12/30/17 07:20 12/30/17 07:20 Intake and Output: 12/30/17 12/30/17 06:59 18:59 Intake Total 320 Output Total 100 Balance 220 - Medications Medications: Current Medications Albuterol/Ipratropium (Duoneb 3 Mg/0.5 Mg (3 Ml) Ud) 3 ml INH RQ6 PRN PRN Reason: Shortness of Breath Doxazosin Mesylate (Cardura) 2 mg PO DAILY [facility] Last Admin: 12/30/17 09:46 Dose: Not Given Finasteride (Proscar) 5 mg PO DAILY [facility] Last Admin: 12/30/17 09:45 Dose: Not Given Hydrocortisone (Anusol-Hc) 0 gm GA BID [facility] Last Admin: 12/30/17 09:43 Dose: 1 applic Oxycodone/Acetaminophen (Percocet 5/325 Mg Tab) 1 tab PO Q6H PRN PRN Reason: Pain, severe (8-10) Stop: 01/01/18 01:44 Last Admin: 12/29/17 18:08 Dose: 1 tab Pantoprazole Sodium (Protonix Inj) 40 mg IVP DAILY [facility] Last Admin: 12/30/17 09:44 Dose: 40 mg Fluticasone/Salmeterol (Advair Diskus 250/50) 1 puff INH RQ12 [facility] Last Admin: 12/30/17 08:14 Dose: Not Given - Labs Labs: 12/30/17 07:17 12/30/17 07:17 PT 12.3 SECONDS (9.7-12.2) H 12/29/17 16:47 INR 1.1 12/29/17 16:47 APTT 36 SECONDS (21-34) H 12/29/17 16:47 - Additional Findings Additional findings: - Constitutional Appears: Chronically Ill - Head Exam Head Exam: NORMAL INSPECTION, NORMOCEPHALIC - Eye Exam Eye Exam: EOMI, Normal appearance. absent: Nystagmus, Scleral icterus Pupil Exam: NORMAL ACCOMODATION - ENT Exam ENT Exam: Mucous Membranes Moist - Neck Exam Neck Exam: Normal Inspection. absent: Lymphadenopathy - Respiratory Exam Respiratory Exam: Clear to Ausculation Bilateral, NORMAL BREATHING PATTERN - Cardiovascular Exam Cardiovascular Exam: REGULAR RHYTHM, right port-a-cath noted - GI/Abdominal Exam GI & Abdominal Exam: Soft, Normal Bowel Sounds. absent: Distended, Tenderness, Organomegaly - Rectal Exam Rectal Exam: Deferred - Extremities Exam Extremities Exam: absent: Calf Tenderness, Pedal Edema, Tenderness - Neurological Exam Neurological Exam: Alert, Awake, Oriented x3 - Skin Additional comments: multiple scattered neurofibromas all throughout body. Cafe au lait spots noted on both axilla, thighs, lower back. Assessment and Plan - Assessment and Plan (Free Text) Assessment: This is a 62M with PMHx of mucinous adenocarcinoma (diagnosed 10/2016) s/p chemotherapy (3-4 sessions) and partial proctectomy with proctoanal anastamosis 10/21/16, Neurofibromas, Scoliosis, HTN, HLD, COPD,and paraphimosis- s/p circumcision who presented with rectal pain. Patient is for biopsy of rectal mass on 12/30/[address] Ruano. Plan: Rectal Mass Left Groin LAD, suspicious for mets History of Mucinous Adenocarcinoma Prior history of colonic polyps General Surgery consulted -Dr. Ruano - plan for biopsy of rectal mass on 12/30 Heme/Onc consulted - Dr. Castaneda- help appreciated * We will need to call Dr. Bev Castaneda's office to see if patient remains a patient of hers. * History of mucinous adenocarcinoma (diagnosed 10/2016) s/p chemotherapy (3-4 sessions, unclear why he did not continue) and partial proctectomy with proctoanal anastamosis 10/21/16 * EUS (11/01/16): uT3uN0 evidence of internal and sphincter invasion by EUS criteria. No lymph nodes were seen in perirectal region,, in a peritumoral location during endosonographic examination of the anal cancer, rectum, and sigmoid colon. Imaging: - CT chest, ab, pelvis: Rectal mass noted 5.1 x 4.3 x 4.5 cm. LAD noted left groin measuring 2.5 x 3.0 x 3cm suspicious for metastatic disease Management: - Anusol as needed, Percocet PRN - Patient is medically optimized for surgical intervention. patient's ekg showing sinus tachycardia, suspecting secondary to pain. Chest xray: stable severe thoracic levoscolilosis. No focal consolidation or pleural effusion. Per detskys criteria, had is considered low cardiac risk, subject to class 6% complications based on abnormal EKG. Surgery and anesthesia to discuss risk and benefits of procedure prior to procedure with patient. Incidental liver hypodense lesion - Noted on CT scan 6mm focal lesion Hx Neurofibromas - Appears; however patient has not had genetic testing to confirm nor skin biopsy Hx BPH - Restarted home medications: Proscar 5mg PO daily, Cardura 2mg PO daily Hx HTN - Blood pressure control; will continue to follow Hx HLD - Patient is currently not on a statin - F/U lipid panel Hx COPD - Not in acute exacerbation - Duonebs PRN, advair Hx Paraphimosis - s/p circumcision Hx Scoliosis Prophylaxis - GI: Protonix 40mg IVQ daily - DVT: SCDs, VTE c/i 2/2 biopsy Disposition: Pending pathology of rectal mass biopsy to determine treatment plan. Will need to speak to Dr. Castaneda to establish plan for patient. DW Dr. Dr. Rosales, Neha Luna DO, PGY-1 <Darlene Rosales V - Last Filed: 12/30/17 22:40> Objective - Vital Signs/Intake and Output Vital Signs (last 24 hours): Temp Pulse Resp BP Pulse Ox 98.1 F 115 H 20 152/94 H 100 12/30/17 17:43 12/30/17 19:27 12/30/17 17:43 12/30/17 17:43 12/30/17 17:43 Intake and Output: 12/30/17 12/31/17 18:59 06:59 Intake Total 1060 750 Balance 1060 750 - Medications Medications: Current Medications Albuterol/Ipratropium (Duoneb 3 Mg/0.5 Mg (3 Ml) Ud) 3 ml INH RQ6 PRN PRN Reason: Shortness of Breath Doxazosin Mesylate (Cardura) 2 mg PO DAILY [facility] Last Admin: 12/30/17 09:46 Dose: Not Given Finasteride (Proscar) 5 mg PO DAILY [facility] Last Admin: 12/30/17 09:45 Dose: Not Given Hydrocortisone (Anusol-Hc) 0 gm GA BID [facility] Last Admin: 12/30/17 18:00 Dose: Not Given Lactated Ringer's (Lactated Ringer's) 1,000 mls @ 150 mls/hr IV .Q6H40M [facility] Oxycodone/Acetaminophen (Percocet 5/325 Mg Tab) 1 tab PO Q6H PRN PRN Reason: Pain, severe (8-10) Stop: 01/01/18 01:44 Last Admin: 12/30/17 20:43 Dose: 1 tab Pantoprazole Sodium (Protonix Inj) 40 mg IVP DAILY [facility] Last Admin: 12/30/17 09:44 Dose: 40 mg Fluticasone/Salmeterol (Advair Diskus 250/50) 1 puff INH RQ12 [facility] Last Admin: 12/30/17 19:26 Dose: 1 puff - Labs Labs: 12/30/17 07:17 12/30/17 07:17 PT 12.3 SECONDS (9.7-12.2) H 12/29/17 16:47 INR 1.1 12/29/17 16:47 APTT 36 SECONDS (21-34) H 12/29/17 16:47 Attending/Attestation - Attestation I have personally seen and examined this patient.: Yes I have fully participated in the care of the patient.: Yes I have reviewed all pertinent clinical information, including history, physical exam and plan: Yes Notes (Text): patient seen, examined and case discussed with day-time resident. Patient seen with resident, reporting pain in the anal area, and difficulty when trying to use the bathroom in spite of cream to reduce irritation. Patient is scheduled for biopsy for with Dr. Parr. Discussed with Dr. Ruano post-OR, there are pathology to follow-up for both anal mass and the lymphadenopathy. He is also recommended for colostomy for the patient. I have tried to reach out to Dr. Bev Castaneda's office, left message with office staff to follow-up in regards to the patient; since patient had underwent radiation and chemotherapy for mucinous adenocarcinoma; last went last summer. Assessment/Plan 1) Rectal Mass History of Mucinous Adenocarcinoma Prior history of colonic polyps * General Surgery consulted -Dr. Ruano - plan for biopsy of rectal mass and lymphadenopathy * Recommend for colostomy; radiation; chemotherapy * We will need to f/u pathology * Heme/Onc consulted - Dr. Castaneda * We will need to call Dr. Bev Castaneda's office. Awaiting call back * History of mucinous adenocarcinoma (diagnosed 10/2016) s/p chemotherapy (3-4 sessions, unclear why he did not continue) and partial proctectomy with proctoanal anastamosis 10/21/16 * EUS (11/01/16): uT3uN0 evidence of internal and sphincter invasion by EUS criteria. No lymph nodes were seen in perirectal region,, in a peritumoral location during endosonographic examination of the anal cancer, rectum, and sigmoid colon. * Imaging: * CT chest, ab, pelvis: Rectal mass noted 5.1 x 4.3 x 4.5 cm. LAD noted left groin measuring 2.5 x 3.0 x 3cm suspicious for metastatic disease * Management: * Anusol as needed * Percocet PRN * Patient is medically optimized for surgical intervention. patient's ekg showing sinus tachycardia, suspecting secondary to pain. Chest xray: stable severe thoracic levoscolilosis. No focal consolidation or pleural effusion. Per detskys criteria, had is considered low cardiac risk, subject to class 6% complications based on abnormal ekg. Surgery and anesthesia to discuss risk and benefits of procedure prior to procedure with patient. 2) Incidental liver hypodense lesion * Noted on CT scan 6mm focal lesion 3) Hx Neurofibromas * appears; however patient has not had genetic testing to confirm nor skin biopsy 4) Hx BPH * Restarted home medications: Proscar 5mg PO daily, Cardura 2mg PO daily 5) Hx Scoliosis 6) Hx HTN * Blood pressure control * will continue to follow 7) Hx HLD * check lipid panel in AM * Patient is currently not on a statin 8) Hx COPD * patient is not in acute exacerbation * will add duonebs PRN, advair 9) Hx Paraphimosis * s/p circumcision 10) Prophylaxis * GI: Protonix 40mg IVQ daily * DVT: SCDs, VTE c/i 2/ biopsy * will cancel Palliative Care Consult until we receive result of anal biospy Disposition: Pending pathology of rectal mass biopsy and lymphadenopathy to determine treatment plan. will need to f/u with patient's heme-oncologist.
--- NOTE | 2017-12-30 12:27 | CARD ---
APPROVED REPORT EKG Measurement Heart [id number] <Conclusion> Sinus tachycardia Otherwise normal ECG
[2017-12-30] MEDS ORDERED: ceFAZolin 1 gm in NS 2 GM/200 ML BAG IVPB ONE (13:32)
[2017-12-30] MEDS ORDERED: Bupivacaine HCl 0.25% PF (30 ml) Inj ONE (13:33)
[2017-12-30] MEDS ORDERED: Propofol 10 mg/ml Inj (20 ML) ONE (13:37)
[2017-12-30] MEDS ORDERED: Lidocaine Hydrochloride 5 ML INJ ONE (13:37)
[2017-12-30] MEDS ORDERED: Midazolam 2 MG/2 ML VIAL ONE (13:37)
[2017-12-30] MEDS ORDERED: Lidocaine Hydrochloride 0 ML INJ ONE (14:10)
[2017-12-30] MEDS: HYDROmorphone 0.5 mg/0.5 ml ISec IVP PRN ×2 (16:15→17:01)
[2017-12-30] MEDS ORDERED: Lactated Ringer's 1,000 ML IV ONE (17:15)
[2017-12-30] MEDS: Oxycodone/Acetaminophen 5/325 mg Tab PO PRN (20:43)
[2017-12-31] MEDS: Oxycodone/Acetaminophen 5/325 mg Tab PO PRN ×3 (02:35→16:45)
[2017-12-31] MEDS: Lactated Ringer's 1,000 ML IV SCH ×2 (02:39→06:03)
--- NOTE | 2017-12-31 02:56 | OP ---
PROCEDURE DATE: 12/30/2017 PREOPERATIVE DIAGNOSIS: Left pelvic mass and rectal mass. POSTOPERATIVE DIAGNOSIS: Left pelvic mass and rectal mass. PROCEDURE PERFORMED: 1. Wide deep excision of 5-cm left pelvic tumor. 2. Excision and incisional biopsy of rectal tumor. SURGEON Chilo Ruano MD ANESTHESIA: General. BLOOD LOSS: 30 mL. POSTOPERATIVE CONDITION: Stable. INDICATIONS FOR SURGERY: This is a 62-year-old male with a history of mass in his left groin along with a rectal tumor. He is now taken to the OR for an incisional biopsy of the rectal tumor and also an excisional biopsy of the pelvic tumor. DESCRIPTION OF PROCEDURE: The patient was taken to the operating room. General anesthesia was administered. The left groin and rectal areas were prepped and draped. An incision was made in the left groin, and the 5-cm mass was dissected free and removed. Bleeding was controlled using the Bovie. The wound was irrigated with saline. A larger blood vessel was repaired. Multiple layers of Vicryl were used for closure, and a subcuticular closure with glue was performed. The patient was then placed in lithotomy position. The rectal area was prepped and draped. A direct retractor was administered in the large mass. Incision was made surrounding it. It was removed into the mucosal layer. Bleeding was controlled using the Bovie. The overlying tissue was repaired. It was sent for frozen section, found to be adenocarcinoma. The patient tolerated the procedure well, returned to recovery room in stable condition. Chilo Ruano MD
[2017-12-31 06:41] LABS: ALB/GLOB RATIO 1.2 (1.0-2.1); ALBUMIN 3.4 g/dL (3.5-5.0); ALT/SGPT 19 U/L (21-72); AST/SGOT 21 U/L (17-59); BLOOD UREA NITROGEN 13 mg/dL (9-20); CALCIUM 8.7 mg/dl (8.6-10.4); GFR AFRICAN-AMERICAN > 60; GFR NON-AFRICAN AMERICAN > 60; HDL CHOLESTEROL 36 mg/dL (30-70)
[2017-12-31 06:43] LABS: BASO % 0.3 % (0.0-2.0); EOS % 0.3 % (0.0-4.0); HEMOGLOBIN 13.3 g/dL (12.0-18.0); LYMPH # 1.2 K/uL (1.0-4.3); LYMPH % 10.8 % (20.0-40.0); MEAN CELL VOLUME 88.9 fL (80.0-94.0); MEAN CORPUSCULAR HEMOGLOBIN 31.1 pg (27.0-31.0); MEAN PLATELET VOLUME 6.5 fL (7.2-11.7); MONO % 9.2 % (0.0-10.0); NEUT # 8.6 K/uL (1.8-7.0); NEUT % 79.4 % (50.0-75.0); RBC 4.26 Mil/uL (4.40-5.90); RED CELL DISTRIBUTION WIDTH 12.9 % (11.5-14.5); WHITE BLOOD COUNT 10.9 K/uL (4.8-10.8)
[2017-12-31 06:51] LABS: LDL CHOLESTEROL 102 mg/dL (0-129)
--- NOTE | 2017-12-31 07:38 | CP.PCM.PN ---
<Neha Luna - Last Filed: 12/31/17 14:43> Subjective - Date & Time of Evaluation Date of Evaluation: 12/31/17 Time of Evaluation: 07:00 - Subjective Subjective: Medicine Note for Hospitalist Service- Dr. Rosales Patient was seen and examined at bedside. Admitted to rectal pain and discomfort. S/P rectal mass and LAD biopsy, he is for colostomy tomorrow. Attending, resident, and palliative care nurse spoke to length about colostomy, chemotherapy and radiation. Patient ultimately agreed for colostomy but hesitant to agree to chemotherapy and radiation due to the side effects. Denied fever, chills, headaches, chest pain, shortness of breath, abdominal pain , n/v/d/c, or urinary symptoms. Objective - Vital Signs/Intake and Output Vital Signs (last 24 hours): Temp Pulse Resp BP Pulse Ox 97.8 F 101 H 20 161/80 H 97 12/30/17 23:05 12/30/17 23:05 12/30/17 23:05 12/30/17 23:05 12/30/17 23:05 Intake and Output: 12/31/17 12/31/17 06:59 18:59 Intake Total 750 Balance 750 - Medications Medications: Current Medications Albuterol/Ipratropium (Duoneb 3 Mg/0.5 Mg (3 Ml) Ud) 3 ml INH RQ6 PRN PRN Reason: Shortness of Breath Doxazosin Mesylate (Cardura) 2 mg PO DAILY [facility] Last Admin: 12/30/17 09:46 Dose: Not Given Finasteride (Proscar) 5 mg PO DAILY [facility] Last Admin: 12/30/17 09:45 Dose: Not Given Hydrocortisone (Anusol-Hc) 0 gm DC BID [facility] Last Admin: 12/30/17 18:00 Dose: Not Given Lactated Ringer's (Lactated Ringer's) 1,000 mls @ 150 mls/hr IV .Q6H40M [facility] Last Admin: 12/31/17 06:03 Dose: Not Given Oxycodone/Acetaminophen (Percocet 5/325 Mg Tab) 1 tab PO Q6H PRN PRN Reason: Pain, severe (8-10) Stop: 01/01/18 01:44 Last Admin: 12/31/17 02:35 Dose: 1 tab Pantoprazole Sodium (Protonix Inj) 40 mg IVP DAILY [facility] Last Admin: 12/30/17 09:44 Dose: 40 mg Fluticasone/Salmeterol (Advair Diskus 250/50) 1 puff INH RQ12 [facility] Last Admin: 12/30/17 19:26 Dose: 1 puff - Labs Labs: 12/31/17 06:10 12/31/17 06:10 PT 12.3 SECONDS (9.7-12.2) H 12/29/17 16:47 INR 1.1 12/29/17 16:47 APTT 36 SECONDS (21-34) H 12/29/17 16:47 Assessment and Plan - Assessment and Plan (Free Text) Assessment: This is a 62M with PMHx of mucinous adenocarcinoma (diagnosed 10/2016) s/p chemotherapy (3-4 sessions) and partial proctectomy with proctoanal anastamosis 10/21/16, Neurofibromas, Scoliosis, HTN, HLD, COPD,and paraphimosis- s/p circumcision who presented with rectal pain. S/P biopsy of rectal mass and LAD on 12/30/[address] Ruano. Plan for colostomy 01/01/18; radiation, chemotherapy. Plan: Rectal Mass Left Groin LAD, suspicious for mets History of Mucinous Adenocarcinoma Prior history of colonic polyps General Surgery consulted -Dr. Ruano - s/p biopsy of rectal mass on 12/30/17 * Colostomy planned for 01/01/18 * Attending, resident, and palliative care nurse spoke to length about colostomy , chemotherapy and radiation. Patient ultimately agreed for colostomy but hesitant to agree to chemotherapy and radiation due to the side effects. Will consider and speak with his stepdaughter. * Spoke with Dr. Castaneda - pending the goals of care and what the patient is agreeable to, she will happily see the patient to resume treatment - will speak to Dr. Castaneda once patient decides his treatment plan * We will need to f/u pathology Heme/Onc consulted - Dr. Castaneda- help appreciated * History of mucinous adenocarcinoma (diagnosed 10/2016) s/p chemotherapy (1-2 sessions, unclear why he did not continue) and partial proctectomy with proctoanal anastamosis 10/21/16 * EUS (11/01/16): uT3uN0 evidence of internal and sphincter invasion by EUS criteria. No lymph nodes were seen in perirectal region,, in a peritumoral location during endosonographic examination of the anal cancer, rectum, and sigmoid colon. Imaging: - CT chest, ab, pelvis: Rectal mass noted 5.1 x 4.3 x 4.5 cm. LAD noted left groin measuring 2.5 x 3.0 x 3cm suspicious for metastatic disease Management: - Anusol as needed, Percocet PRN - Patient is medically optimized for surgical intervention. patient's ekg showing sinus tachycardia, suspecting secondary to pain. Chest xray: stable severe thoracic levoscolilosis. No focal consolidation or pleural effusion. Per detskys criteria, had is considered low cardiac risk, subject to class 6% complications based on abnormal EKG. Surgery and anesthesia to discuss risk and benefits of procedure prior to procedure with patient. Incidental liver hypodense lesion - Noted on CT scan 6mm focal lesion Hx Neurofibromas - Appears; however patient has not had genetic testing to confirm nor skin biopsy Hx BPH - Restarted home medications: Proscar 5mg PO daily, Cardura 2mg PO daily Hx HTN - Blood pressure control; will continue to follow Hx HLD - Patient is currently not on a statin - Lipid panel - wnl Hx COPD - Not in acute exacerbation - Duonebs PRN, advair Hx Paraphimosis - s/p circumcision Hx Scoliosis Prophylaxis - GI: Protonix 40mg IVQ daily - DVT: SCDs, VTE c/i 2/2 colostomy 01/01/18 Disposition: Pending pathology of rectal mass biopsy to determine treatment plan. Once goals of care are established and patient decides how extensive he wants his treatment to be ; will touch base with Dr. Castaneda again. DW Dr. Dr. Rosales, Neha Luna DO, PGY-1 <Darlene Rosales V - Last Filed: 12/31/17 16:23> Objective - Vital Signs/Intake and Output Vital Signs (last 24 hours): Temp Pulse Resp BP Pulse Ox 98.6 F 116 H 20 134/88 100 12/31/17 07:00 12/31/17 10:29 12/31/17 07:00 12/31/17 10:29 12/31/17 07:00 Intake and Output: 12/31/17 12/31/17 06:59 18:59 Intake Total 750 400 Balance 750 400 - Medications Medications: Current Medications Albuterol/Ipratropium (Duoneb 3 Mg/0.5 Mg (3 Ml) Ud) 3 ml INH RQ6 PRN PRN Reason: Shortness of Breath Doxazosin Mesylate (Cardura) 2 mg PO DAILY [facility] Last Admin: 12/31/17 10:26 Dose: 2 mg Finasteride (Proscar) 5 mg PO DAILY [facility] Last Admin: 12/31/17 10:26 Dose: 5 mg Hydrocortisone (Anusol-Hc) 0 gm DC BID [facility] Last Admin: 12/31/17 10:26 Dose: 1 applic Lisinopril (Zestril) 10 mg PO DAILY [facility] Oxycodone/Acetaminophen (Percocet 5/325 Mg Tab) 1 tab PO Q6H PRN PRN Reason: Pain, severe (8-10) Stop: 01/01/18 01:44 Last Admin: 12/31/17 07:47 Dose: 1 tab Pantoprazole Sodium (Protonix Inj) 40 mg IVP DAILY [facility] Last Admin: 12/31/17 10:25 Dose: 40 mg Fluticasone/Salmeterol (Advair Diskus 250/50) 1 puff INH RQ12 [facility] Last Admin: 12/31/17 08:23 Dose: Not Given - Labs Labs: 12/31/17 06:10 12/31/17 06:10 PT 12.3 SECONDS (9.7-12.2) H 12/29/17 16:47 INR 1.1 12/29/17 16:47 APTT 36 SECONDS (21-34) H 12/29/17 16:47 Attending/Attestation - Attestation I have personally seen and examined this patient.: Yes I have fully participated in the care of the patient.: Yes I have reviewed all pertinent clinical information, including history, physical exam and plan: Yes Notes (Text): Patient seen, examined and case discussed with day-time resident. Patient seen with palliative care and resident. Translation with Paige Justice [id number] assist. Patient reports he is aware he has both hemorrhoids and rectal cancer. He reports he did some chemotherapy and radiation but he is admits hesitancy and fear in regards to chemotherapy because of side effects such as weight loss and nausea. Patient reports he has great difficulty going to the bathroom which has started in the past three days. Patient reports his step-daughter works in pharmacy but is at work until 7pm. Citlali also indicated to him that the surgeon had recommended for colostomy given how big the mass he has. Following discussion with palliative care, patient is amenable to colostomy. Resident has reached out to Dr. Castaneda's office, reports patient came for chemotherapy but then stop coming. We will revisit conversation with the patient after he thinks about going forward given options for chemotherapy, radiation. We did explain to the patient, that he does have a cancer, and I believe he understands that and it will not go away on its own, which I think he is dealing with an element of denial. Assessment/Plan 1) Rectal Mass History of Mucinous Adenocarcinoma Prior history of colonic polyps * General Surgery consulted -Dr. Ruano - plan for biopsy of rectal mass and lymphadenopathy * Recommend for colostomy; radiation; chemotherapy * We will need to f/u pathology * Heme/Onc consulted - Dr. Castaneda * History of mucinous adenocarcinoma (diagnosed 10/2016) s/p chemotherapy (3-4 sessions, unclear why he did not continue) and partial proctectomy with proctoanal anastamosis 10/21/16 * EUS (11/01/16): uT3uN0 evidence of internal and sphincter invasion by EUS criteria. No lymph nodes were seen in perirectal region,, in a peritumoral location during endosonographic examination of the anal cancer, rectum, and sigmoid colon. * Imaging: * CT chest, ab, pelvis: Rectal mass noted 5.1 x 4.3 x 4.5 cm. LAD noted left groin measuring 2.5 x 3.0 x 3cm suspicious for metastatic disease * Management: * Anusol as needed * Percocet PRN * Patient is medically optimized for surgical intervention. patient's ekg showing sinus tachycardia, suspecting secondary to pain. Chest xray: stable severe thoracic levoscolilosis. No focal consolidation or pleural effusion. Per detskys criteria, had is considered low cardiac risk, subject to class 6% complications based on abnormal ekg. Surgery and anesthesia to discuss risk and benefits of procedure prior to procedure with patient. 2) Incidental liver hypodense lesion * Noted on CT scan 6mm focal lesion 3) Hx Neurofibromas * appears; however patient has not had genetic testing to confirm nor skin biopsy 4) Hx BPH * Restarted home medications: Proscar 5mg PO daily, Cardura 2mg PO daily 5) Hx Scoliosis 6) Hx HTN * Blood pressure control * start Lisinopril 10mg PO daily 7) Hx HLD * T, Cholestrol: 149, LDL: 102, HDL: 36 * Patient is currently not on a statin 8) Hx COPD * patient is not in acute exacerbation * will add duonebs PRN, advair 9) Hx Paraphimosis * s/p circumcision 10) Prophylaxis * GI: Protonix 40mg IVQ daily * DVT: SCDs, VTE c/i 2/2 biopsy * Palliative Care Consult for goals of care-->appreciate help. until we receive result of anal biospy Disposition: Pending pathology of rectal mass biopsy and lymphadenopathy to determine treatment plan. will need to f/u with patient's heme-oncologist if he chooses to go forward with chemo. patient is going to colostomy tomorrow. NPO after midnight. Surgery and anesthesia to discuss risks and benefits of procedure prior to OR.
[2017-12-31] MEDS: Fluticasone-Salmeterol 250-50mcg Diskus INH SCH ×2 (08:23→20:02)
--- NOTE | 2017-12-31 09:16 | CP.PCM.CON ---
History of Present Illness - History of Present Illness History of Present Illness: Mr Jean Dowd is a 62 year old male with a persistent, progressive rectal cancer. We originally saw him in consultation a year ago when he presented with a rectal cancer and prolapse. He only received six out of the 28 intended radiation treatments because he refused further therapy. Now, he presents to [facility] with left groin mass, pain as well as weight loss. A CT of the chest, abdomen and pelvis on December 28, 2017 revealed a 5.1 x 4.3 x 4.5cm perianal mass as well as left groin mass measuring 2.5 x 3 x 3cm. On December 30, 2017, he had a wide deep excision of the left groin mass and incisional biopsy of the rectal tumor. He states that he has not followed up with his medical oncologist as well. Review of Systems - Constitutional Constitutional: Weight Loss Past Patient History - Infectious Disease Hx of Infectious Diseases: None - Past Medical History & Family History Past Medical History?: Yes - Past Social History Smoking Status: Former Smoker Chewing Tobacco Use: No Cigar Use: No Alcohol: None Drugs: Denies Home Situation {Lives}: With Family Domestic Violence: Negative - CARDIAC Hx Hypertension: Yes - PULMONARY Hx Asthma: Yes - NEUROLOGICAL Hx Neurological Disorder: No Other/Comment: poor historian vs forgetfulness - HEENT Hx HEENT Problems: No - RENAL Hx Chronic Kidney Disease: Yes - ENDOCRINE/METABOLIC Hx Endocrine Disorders: No - HEMATOLOGICAL/ONCOLOGICAL Hx Human Immunodeficiency Virus (HIV): No - INTEGUMENTARY Hx Dermatological Problems: Yes Other/Comment: generalized skin lessions - MUSCULOSKELETAL/RHEUMATOLOGICAL Hx Musculoskeletal Disorders: No Hx Falls: No - GASTROINTESTINAL Hx Gastrointestinal Disorders: No Hx Hemorrhoids: Yes Other/Comment: rectal CA - GENITOURINARY/GYNECOLOGICAL Hx Urinary Tract Infection: Yes - PSYCHIATRIC Hx Substance Use: No - SURGICAL HISTORY Hx Surgeries: Yes Hx Herniorrhaphy: Yes - ANESTHESIA Hx Anesthesia: Yes Hx Anesthesia Reactions: No Meds Allergies/Adverse Reactions: Allergies Allergy/AdvReac Type Severity Reaction Status Date / Time No Known Allergies Allergy Verified 07/02/17 15:33 - Medications Medications: Current Medications Albuterol/Ipratropium (Duoneb 3 Mg/0.5 Mg (3 Ml) Ud) 3 ml INH RQ6 PRN PRN Reason: Shortness of Breath Doxazosin Mesylate (Cardura) 2 mg PO DAILY [facility] Last Admin: 12/30/17 09:46 Dose: Not Given Finasteride (Proscar) 5 mg PO DAILY [facility] Last Admin: 12/30/17 09:45 Dose: Not Given Hydrocortisone (Anusol-Hc) 0 gm [place] BID [facility] Last Admin: 12/30/17 18:00 Dose: Not Given Lisinopril (Zestril) 10 mg PO DAILY [facility] Oxycodone/Acetaminophen (Percocet 5/325 Mg Tab) 1 tab PO Q6H PRN PRN Reason: Pain, severe (8-10) Stop: 01/01/18 01:44 Last Admin: 12/31/17 07:47 Dose: 1 tab Pantoprazole Sodium (Protonix Inj) 40 mg IVP DAILY [facility] Last Admin: 12/30/17 09:44 Dose: 40 mg Fluticasone/Salmeterol (Advair Diskus 250/50) 1 puff INH RQ12 [facility] Last Admin: 12/31/17 08:23 Dose: Not Given Physical Exam - Head Exam Head Exam: NORMAL INSPECTION - Eye Exam Eye Exam: EOMI - ENT Exam ENT Exam: Mucous Membranes Moist - Respiratory Exam Respiratory Exam: Clear to Auscultation Bilateral - Cardiovascular Exam Cardiovascular Exam: REGULAR RHYTHM, +S4 - GI/Abdominal Exam GI & Abdominal Exam: Normal Bowel Sounds - Rectal Exam Additional comments: sutures along perianal region as well as left groin gauze Results - Vital Signs Recent Vital Signs: Last Vital Signs Temp 98.6 F 12/31/17 07:00 Pulse 118 H 12/31/17 07:00 Resp 20 12/31/17 07:00 BP 170/87 H 12/31/17 07:00 Pulse Ox 100 12/31/17 07:00 - Labs Result Diagrams: 12/31/17 06:10 12/31/17 06:10 Labs: Laboratory Results - last 24 hr 12/31/17 12/31/17 06:10 06:10 WBC 10.9 H D RBC 4.26 L Hgb 13.3 Hct 37.9 MCV 88.9 MCH 31.1 H MCHC 35.0 RDW 12.9 Plt Count 258 MPV 6.5 L Neut % (Auto) 79.4 H Lymph % (Auto) 10.8 L [place] % (Auto) 9.2 Eos % (Auto) 0.3 Baso % (Auto) 0.3 Neut # (Auto) 8.6 H Lymph # (Auto) 1.2 [place] # (Auto) 1.0 H Eos # (Auto) 0.0 Baso # (Auto) 0.0 Sodium 135 Potassium 4.3 Chloride 98 Carbon Dioxide 31 H Anion Gap 12 BUN 13 Creatinine 0.7 L Est GFR ( Amer) > 60 Est GFR (Non-Af Amer) > 60 Random Glucose 97 Calcium 8.7 Phosphorus 3.5 Magnesium 1.8 Total Bilirubin 0.9 AST 21 ALT 19 L Alkaline Phosphatase 60 Total Protein 6.3 Albumin 3.4 L Globulin 2.9 Albumin/Globulin Ratio 1.2 Triglycerides 49 Cholesterol 149 LDL Cholesterol Direct 102 HDL Cholesterol 36 Assessment & Plan - Assessment and Plan (Free Text) Assessment: Mr Jean Dowd is a 62 year old male with a persistent, progressive rectal cancer. He only completed 02/05 intended treatment in 2016 due to refusal. He did not follow up with any specialist. Now his cancer has progressed locally as well as regionally. We spoke to him about his options including aggressive treatment with chemoradiation followed by surgery. He is reticent again, and wanted options that did not involve radiation or chemotherapy. We spoke to his stepdaughter about it as well. She stated that she would talk to him. She wants him to be aggressive, however also acknowledges that he may not be committed to aggressive treatment especially since his family in [place] are interested in holistic approaches. She will let us know if he changes his mind after she speaks to him later today.
[2017-12-31] MEDS: Hydrocortisone 2.5% Rectal Cream(30 gm) PR SCH ×2 (10:26→18:19)
--- NOTE | 2017-12-31 15:09 | CP.PCM.CON ---
History of Present Illness - History of Present Illness History of Present Illness: Palliative consult requested by Doctor Cheryl for goals of care discussion. Patient is a 62 yo male admitted from home with left grin mass since few months ago. The mass got bigger and more painful. Patient reprted weight loss as well and difficultied moving his bowls. The CT abdomen and pelvis was signficant for large left groin mass and large rectal mass. Per medical record, patient was diagnosed with squamos cell rectal cancer in 10/2016, received only 6 out of 28 recommended radiation tx sessions. Patient did not fallow up with his oncologist. Patient underwent left groin mass excision with Bx, on 12/30/2017. Bowel resection with colostomy creation was suggested as well as radiation for shrinking of rectal mass. Patient had difficult time deciding. PMH: BPH, asthma, rectal cancer, CKD Soc. Hx: single, unemployed, lives with his daughter Reymundo. Hx: denies known medical Hx Review of Systems - Constitutional Constitutional: Weight Loss - EENT Eyes: absent: As Per HPI, Blind Spots, Blurred Vision, Change in Vision, Decreased Night Vision, Diplopia, Discharge, Dry Eye, Exophthalmos, Floaters, Irritation, Itchy Eyes, Loss of Peripheral Vision, Pain, Photophobia, Requires Corrective Lenses, Sees Flashes, Spots in Vision, Tunnel Vision, Other Visual Disturbances, Loss of Vision, Other Ears: absent: As Per HPI, Decreased Hearing, Ear Discharge, Ear Pain, Tinnitus, Abnormal Hearing, Disequilibrium, Dizziness, Other Nose/Mouth/Throat: absent: As Per HPI, Epistaxis, Nasal Congestion, Nasal Discharge, Nasal Obstruction, Nasal Trauma, Nose Pain, Post Nasal Drip, Sinus Pain, Sinus Pressure, Bleeding Gums, Change in Voice, Dental Pain, Dry Mouth, Dysphagia, Halitosis, Hoarsness, Lip Swelling, Mouth Lesions, Mouth Pain, Odynophagia, Sore Throat, Throat Swelling, Tongue Swelling, Facial Pain, Neck Pain, Neck Mass, Other - Cardiovascular Cardiovascular: absent: As Per HPI, Acrocyanosis, Chest Pain, Chest Pain at Rest , Chest Pain with Activity, Claudication, Diaphoresis, Dyspnea, Dyspnea on Exertion, Edema, Irregular Heart Rhythm, Pain Radiating to Arm/Neck/Jaw, Leg Edema, Leg Ulcers, Lightheadedness, Orthopnea, Palpitations, Paroxysmal Nocturnal Dyspnea, Pedal Edema, Radiating Pain, Rapid Heart Rate, Slow Heart Rate, Syncope, Other - Respiratory Respiratory: absent: As Per HPI, Cough, Dyspnea, Hemoptysis, Dyspnea on Exertion , Wheezing, Snoring, Stridor, Pain on Inspiration, Chest Congestion, Excessive Mucous Production, Change in Mucous Color, Pain with Coughing, Other - Gastrointestinal Gastrointestinal: Change in Bowel Habits - Genitourinary Genitourinary: absent: As Per HPI, Change in Urinary Stream, Difficulty Urinating, Dysuria, Flank Pain, Hematuria, Pyuria, Nocturia, Urinary Incontinence, Urinary Frequency, Urinary Hesitance, Urinary Urgency, Voiding Freq/Small Amts, Freq UTI, Hx Renal/Bladder Calculi, Hx /Renal Surgery, Bladder Distension, Other - Musculoskeletal Musculoskeletal: absent: As Per HPI, Abnormal Gait, Arthralgias, Atrophy, Back Pain, Deformity, Joint Swelling, Limited Range of Motion, Loss of Height, Muscle Cramps, Muscle Weakness, Myalgias, Neck Pain, Numbness, Radiating Pain into Limb, Stiffness, Tingling, Other - Integumentary Additional comments: cafe au lat spots - Neurological Neurological: absent: As Per HPI, Abnormal Gait, Abnormal Hearing, Abnormal Movements, Abnormal Speech, Behavioral Changes, Burning Sensations, Confusion, Convulsions, Disequilibrium, Dizziness, Numbness, Focal Weakness, Frequent Falls , Headaches, Lack of Coordination, Loss of Vision, Memory Loss, Paresthesias, Radicular Pain, Restless Legs, Sensory Deficit, Syncope, Tingling, Tremor, Vertigo, Weakness, Other Visual Disturbances, Other - Psychiatric Psychiatric: Anxiety - Endocrine Endocrine: absent: As Per HPI, Change in Body Appearance, Change in Libido, Cold Intolorance, Deepening of Voice, Excessive Sweating, Fatigue, Flushing, Heat Intolorance, Increase in Ring/Shoe/Hat Size, Palpitations, Polydipsia, Polyphagia, Polyuria, Other - Hematologic/Lymphatic Hematologic: absent: As Per HPI, Easy Bleeding, Easy Bruising, Lymphadenopathy, Other Past Patient History - Infectious Disease Hx of Infectious Diseases: None - Past Medical History & Family History Past Medical History?: Yes - Past Social History Smoking Status: Former Smoker Chewing Tobacco Use: No Cigar Use: No Alcohol: None Drugs: Denies Home Situation {Lives}: With Family Domestic Violence: Negative - CARDIAC Hx Hypertension: Yes - PULMONARY Hx Asthma: Yes - NEUROLOGICAL Hx Neurological Disorder: No Other/Comment: poor historian vs forgetfulness - HEENT Hx HEENT Problems: No - RENAL Hx Chronic Kidney Disease: Yes - ENDOCRINE/METABOLIC Hx Endocrine Disorders: No - HEMATOLOGICAL/ONCOLOGICAL Hx Human Immunodeficiency Virus (HIV): No - INTEGUMENTARY Hx Dermatological Problems: Yes Other/Comment: generalized skin lessions - MUSCULOSKELETAL/RHEUMATOLOGICAL Hx Musculoskeletal Disorders: No Hx Falls: No - GASTROINTESTINAL Hx Gastrointestinal Disorders: No Hx Hemorrhoids: Yes Other/Comment: rectal CA - GENITOURINARY/GYNECOLOGICAL Hx Urinary Tract Infection: Yes - PSYCHIATRIC Hx Substance Use: No - SURGICAL HISTORY Hx Surgeries: Yes Hx Herniorrhaphy: Yes - ANESTHESIA Hx Anesthesia: Yes Hx Anesthesia Reactions: No Meds Allergies/Adverse Reactions: Allergies Allergy/AdvReac Type Severity Reaction Status Date / Time No Known Allergies Allergy Verified 07/02/17 15:33 - Medications Medications: Current Medications Albuterol/Ipratropium (Duoneb 3 Mg/0.5 Mg (3 Ml) Ud) 3 ml INH RQ6 PRN PRN Reason: Shortness of Breath Doxazosin Mesylate (Cardura) 2 mg PO DAILY [facility] Last Admin: 12/31/17 10:26 Dose: 2 mg Finasteride (Proscar) 5 mg PO DAILY [facility] Last Admin: 12/31/17 10:26 Dose: 5 mg Hydrocortisone (Anusol-Hc) 0 gm [place] BID [facility] Last Admin: 12/31/17 10:26 Dose: 1 applic Lisinopril (Zestril) 10 mg PO DAILY [facility] Oxycodone/Acetaminophen (Percocet 5/325 Mg Tab) 1 tab PO Q6H PRN PRN Reason: Pain, severe (8-10) Stop: 01/01/18 01:44 Last Admin: 12/31/17 07:47 Dose: 1 tab Pantoprazole Sodium (Protonix Inj) 40 mg IVP DAILY [facility] Last Admin: 12/31/17 10:25 Dose: 40 mg Fluticasone/Salmeterol (Advair Diskus 250/50) 1 puff INH RQ12 [facility] Last Admin: 12/31/17 08:23 Dose: Not Given Physical Exam - Constitutional Appears: Chronically Ill - Head Exam Head Exam: ATRAUMATIC, NORMAL INSPECTION, NORMOCEPHALIC - Eye Exam Eye Exam: EOMI, Normal appearance, PERRL Pupil Exam: NORMAL ACCOMODATION, PERRL - ENT Exam ENT Exam: Mucous Membranes Moist, Normal Exam - Neck Exam Neck exam: Positive for: Normal Inspection - Respiratory Exam Respiratory Exam: Decreased Breath Sounds, Respiratory Distress - Cardiovascular Exam Cardiovascular Exam: Tachycardia, REGULAR RHYTHM - GI/Abdominal Exam GI & Abdominal Exam: Diminished Bowel Sounds - Rectal Exam Rectal Exam: Deferred Additional comments: reports rectal pain - Exam Exam: NORMAL INSPECTION - Extremities Exam Extremities exam: Positive for: normal inspection - Back Exam Back exam: NORMAL INSPECTION - Neurological Exam Neurological exam: Alert, Oriented x3 - Psychiatric Exam Psychiatric exam: Anxious - Skin Skin Exam: Normal Color, Warm Results - Vital Signs Recent Vital Signs: Last Vital Signs Temp 98.6 F 12/31/17 07:00 Pulse 116 H 12/31/17 10:29 Resp 20 12/31/17 07:00 BP 134/88 12/31/17 10:29 Pulse Ox 100 12/31/17 07:00 - Labs Result Diagrams: 12/31/17 06:10 12/31/17 06:10 Labs: Laboratory Results - last 24 hr 12/31/17 12/31/17 06:10 06:10 WBC 10.9 H D RBC 4.26 L Hgb 13.3 Hct 37.9 MCV 88.9 MCH 31.1 H MCHC 35.0 RDW 12.9 Plt Count 258 MPV 6.5 L Neut % (Auto) 79.4 H Lymph % (Auto) 10.8 L [place] % (Auto) 9.2 Eos % (Auto) 0.3 Baso % (Auto) 0.3 Neut # (Auto) 8.6 H Lymph # (Auto) 1.2 [place] # (Auto) 1.0 H Eos # (Auto) 0.0 Baso # (Auto) 0.0 Sodium 135 Potassium 4.3 Chloride 98 Carbon Dioxide 31 H Anion Gap 12 BUN 13 Creatinine 0.7 L Est GFR ( Amer) > 60 Est GFR (Non-Af Amer) > 60 Random Glucose 97 Calcium 8.7 Phosphorus 3.5 Magnesium 1.8 Total Bilirubin 0.9 AST 21 ALT 19 L Alkaline Phosphatase 60 Total Protein 6.3 Albumin 3.4 L Globulin 2.9 Albumin/Globulin Ratio 1.2 Triglycerides 49 Cholesterol 149 LDL Cholesterol Direct 102 HDL Cholesterol 36 Assessment & Plan - Assessment and Plan (Free Text) Assessment: Palliative consult Full Code, no Advance directive on chart, PPS 60% I reviewed medical records, all diagnostic studies, examined and interviewed patient in the bed. Patient seen and examined in bed, alert, oriented X 3, German speaking. Translation provided. Patient is not in acute distress, looks chronically ill. Patient admits of unwanted weight loss due to rectal and groin pain . Breathing is normal. Patient is tachycardic, HR 98, most likely due to pain. Abdomen soft with diminished bowel sounds. Reprts being able to move his bowels after 2 perez, admits some discomfort while moving his bowels. Patient complains of severe pain to left groin, post surgical removal of mass yesterday. Percocet 1 tb Po Q 6 hr PRN pain on board. Patient reports pain is not well controlled. Goals of care discussed. Doctor Rosales and Doctor Luna present as well. At first, I elicited patient's understanding about his disease. Patient admitted he was told last year that he had hemorrhoids and rectal cancer. Patient was not clear about why he did not finish his radiation Tx. Doctor Rosales further discussed his condition and reasons for colonoscopy and radiation of rectal area. Patient was not able to understand and repeatedly was asking what colostomy was for. I reviewed all proposed procedures and the rationales for it in a very simple language which patient could understand. He admitted of being afraid. I further offered more informations about rectal cancer, one of them being if patient becomes completely unable to move his bowels due to obstruction. Further I presented him with more info on stoma care and need for daily care. He stated understanding and agreed wiyh colostomy creation in am. This was shared with Beatriz Rosales, Doctor Luna and Doctor Crow. I shared my contact information with patient and encouraged him to contact me if he should need more support. Impression * Chronically ill man with rectal cancer * Unwanted weight loss * left groin pain post surgical excision of mass * Fear of unknown * Patient agreed with colostomy surgery * Poor insight Suggestion * Doctor Ruano to review procedure with patient and obtain consent * Would change Percocet PO to Morphine 4 mg Im Q 4 hr PRN pain. Patient will most likely be NPO before and after Sx and IM pain meds are more appropriate * Patient needs constant reassurance and reinforcement Paslliative care will fallow up with this patient after the surgery.
[2017-12-31] MEDS ORDERED: Morphine 4 MG/ML VIAL IVP PRN (17:17)
[2018-01-01] MEDS: Morphine 4 MG/ML VIAL IVP PRN ×3 (00:14→17:33)
[2018-01-01 06:31] LABS: BASO % 0.2 % (0.0-2.0); EOS % 0.3 % (0.0-4.0); HEMOGLOBIN 13.6 g/dL (12.0-18.0); LYMPH # 1.2 K/uL (1.0-4.3); LYMPH % 13.4 % (20.0-40.0); MEAN CORPUSCULAR HEMOGLOBIN 31.2 pg (27.0-31.0); MEAN PLATELET VOLUME 6.7 fL (7.2-11.7); MONO % 11.1 % (0.0-10.0); NEUT # 6.6 K/uL (1.8-7.0); NRBC % 0.1 % (0.0-2.0); RBC 4.35 Mil/uL (4.40-5.90); RED CELL DISTRIBUTION WIDTH 12.8 % (11.5-14.5); WHITE BLOOD COUNT 8.8 K/uL (4.8-10.8)
[2018-01-01 07:48] LABS: ALB/GLOB RATIO 1.2 (1.0-2.1); ALBUMIN 3.6 g/dL (3.5-5.0); ALT/SGPT 19 U/L (21-72); AST/SGOT 23 U/L (17-59); BLOOD UREA NITROGEN 9 mg/dL (9-20); CALCIUM 8.9 mg/dl (8.6-10.4); GFR AFRICAN-AMERICAN > 60; GFR NON-AFRICAN AMERICAN > 60
[2018-01-01] MEDS: Fluticasone-Salmeterol 250-50mcg Diskus INH SCH ×2 (09:05→19:53)
[2018-01-01] MEDS: Hydrocortisone 2.5% Rectal Cream(30 gm) PR SCH ×2 (11:11→18:05)
--- NOTE | 2018-01-01 11:32 | CP.PCM.PN ---
<Neha Luna - Last Filed: 01/01/18 11:41> Subjective - Date & Time of Evaluation Date of Evaluation: 01/01/18 Time of Evaluation: 09:00 - Subjective Subjective: Medicine Note for Hospitalist Service- Dr. Rosales Patient was seen and examined at bedside. Admitted to rectal pain and discomfort. S/P rectal mass and LAD biopsy, he is for colostomy today. Denied fever, chills, headaches, chest pain, shortness of breath, abdominal pain, n/v/d /c, or urinary symptoms. Objective - Vital Signs/Intake and Output Vital Signs (last 24 hours): Temp Pulse Resp BP Pulse Ox 98.2 F 113 H 20 130/77 100 01/01/18 08:35 01/01/18 08:35 01/01/18 08:35 01/01/18 08:35 01/01/18 08:35 Intake and Output: 01/01/18 01/01/18 06:59 18:59 Intake Total 200 Output Total 300 Balance -100 - Medications Medications: Current Medications Albuterol/Ipratropium (Duoneb 3 Mg/0.5 Mg (3 Ml) Ud) 3 ml INH RQ6 PRN PRN Reason: Shortness of Breath Doxazosin Mesylate (Cardura) 2 mg PO DAILY [facility] Last Admin: 01/01/18 11:11 Dose: Not Given Finasteride (Proscar) 5 mg PO DAILY [facility] Last Admin: 01/01/18 11:13 Dose: Not Given Hydrocortisone (Anusol-Hc) 0 gm [place] BID [facility] Last Admin: 01/01/18 11:11 Dose: 1 applic Lisinopril (Zestril) 10 mg PO DAILY [facility] Last Admin: 01/01/18 11:12 Dose: Not Given Morphine Sulfate (Morphine) 1 mg IVP Q4 PRN PRN Reason: Pain, moderate (4-7) Morphine Sulfate (Morphine) 2 mg IVP Q6H PRN PRN Reason: Pain, severe (8-10) Last Admin: 01/01/18 08:47 Dose: 2 mg Pantoprazole Sodium (Protonix Inj) 40 mg IVP DAILY [facility] Last Admin: 01/01/18 10:54 Dose: 40 mg Fluticasone/Salmeterol (Advair Diskus 250/50) 1 puff INH RQ12 [facility] Last Admin: 01/01/18 09:05 Dose: 1 puff - Labs Labs: 01/01/18 06:22 01/01/18 06:22 PT 12.3 SECONDS (9.7-12.2) H 12/29/17 16:47 INR 1.1 12/29/17 16:47 APTT 36 SECONDS (21-34) H 12/29/17 16:47 Assessment and Plan - Assessment and Plan (Free Text) Assessment: This is a 62M with PMHx of mucinous adenocarcinoma (diagnosed 10/2016) s/p chemotherapy (3-4 sessions) and partial proctectomy with proctoanal anastamosis 10/21/16, Neurofibromas, Scoliosis, HTN, HLD, COPD,and paraphimosis- s/p circumcision who presented with rectal pain. S/P biopsy of rectal mass and LAD on 12/30/[address] Ruano. Plan for colostomy 01/01/18; radiation, chemotherapy. Plan: Rectal Mass Left Groin LAD, suspicious for mets History of Mucinous Adenocarcinoma Prior history of colonic polyps General Surgery consulted -Dr. Ruano - s/p biopsy of rectal mass on 12/30/17 * Colostomy planned for 01/01/18 * Attending, resident, and palliative care nurse spoke to length about colostomy , chemotherapy and radiation. Patient ultimately agreed for colostomy but hesitant to agree to chemotherapy and radiation due to the side effects. Will consider and speak with his stepdaughter. * Spoke with Dr. Castaneda - pending the goals of care and what the patient is agreeable to, she will happily see the patient to resume treatment - will speak to Dr. Castaneda once patient decides his treatment plan * We will need to f/u pathology Heme/Onc consulted - Dr. Castaneda- help appreciated * History of mucinous adenocarcinoma (diagnosed 10/2016) s/p chemotherapy (1-2 sessions, unclear why he did not continue) and partial proctectomy with proctoanal anastamosis 10/21/16 * EUS (11/01/16): uT3uN0 evidence of internal and sphincter invasion by EUS criteria. No lymph nodes were seen in perirectal region,, in a peritumoral location during endosonographic examination of the anal cancer, rectum, and sigmoid colon. Imaging: - CT chest, ab, pelvis: Rectal mass noted 5.1 x 4.3 x 4.5 cm. LAD noted left groin measuring 2.5 x 3.0 x 3cm suspicious for metastatic disease Management: - Anusol as needed, Percocet, Morphine PRN - Patient is medically optimized for surgical intervention. patient's ekg showing sinus tachycardia, suspecting secondary to pain. Chest xray: stable severe thoracic levoscolilosis. No focal consolidation or pleural effusion. Per detskys criteria, had is considered low cardiac risk, subject to class 6% complications based on abnormal EKG. Surgery and anesthesia to discuss risk and benefits of procedure prior to procedure with patient. Incidental liver hypodense lesion - Noted on CT scan 6mm focal lesion Hx Neurofibromas - Appears; however patient has not had genetic testing to confirm nor skin biopsy Hx BPH - Restarted home medications: Proscar 5mg PO daily, Cardura 2mg PO daily Hx HTN - Blood pressure control; will continue to follow Hx HLD - Patient is currently not on a statin - Lipid panel - wnl Hx COPD - Not in acute exacerbation - Duonebs PRN, advair Hx Paraphimosis - s/p circumcision Hx Scoliosis Prophylaxis - GI: Protonix 40mg IVQ daily - DVT: SCDs, VTE c/i 2/2 colostomy 01/01/18 Disposition: Pending pathology of rectal mass biopsy to determine treatment plan. Once goals of care are established and patient decides how extensive he wants his treatment to be ; will touch base with Dr. Castaneda again. He is for colostomy today. Neha England Dr., Dr., DO, PGY-1 <Darlene Rosales V - Last Filed: 01/01/18 18:39> Objective - Vital Signs/Intake and Output Vital Signs (last 24 hours): Temp Pulse Resp BP Pulse Ox 97.9 F 110 H 20 129/65 95 01/01/18 15:00 01/01/18 15:00 01/01/18 15:00 01/01/18 15:00 01/01/18 15:00 Intake and Output: 01/01/18 01/01/18 06:59 18:59 Intake Total 200 1450 Output Total 300 Balance -100 1450 - Medications Medications: Current Medications Albuterol/Ipratropium (Duoneb 3 Mg/0.5 Mg (3 Ml) Ud) 3 ml INH RQ6 PRN PRN Reason: Shortness of Breath Doxazosin Mesylate (Cardura) 2 mg PO DAILY [facility] Last Admin: 01/01/18 11:11 Dose: Not Given Finasteride (Proscar) 5 mg PO DAILY [facility] Last Admin: 01/01/18 11:13 Dose: Not Given Hydrocortisone (Anusol-Hc) 0 gm [place] BID [facility] Last Admin: 01/01/18 11:11 Dose: 1 applic Lisinopril (Zestril) 10 mg PO DAILY [facility] Last Admin: 01/01/18 11:12 Dose: Not Given Morphine Sulfate (Morphine) 2 mg IVP Q6H PRN PRN Reason: Pain, severe (8-10) Last Admin: 01/01/18 17:33 Dose: 2 mg Pantoprazole Sodium (Protonix Inj) 40 mg IVP DAILY [facility] Last Admin: 01/01/18 10:54 Dose: 40 mg Fluticasone/Salmeterol (Advair Diskus 250/50) 1 puff INH RQ12 [facility] Last Admin: 01/01/18 09:05 Dose: 1 puff - Labs Labs: 01/01/18 06:22 01/01/18 06:22 PT 12.3 SECONDS (9.7-12.2) H 12/29/17 16:47 INR 1.1 12/29/17 16:47 APTT 36 SECONDS (21-34) H 12/29/17 16:47 Attending/Attestation - Attestation I have personally seen and examined this patient.: Yes I have fully participated in the care of the patient.: Yes I have reviewed all pertinent clinical information, including history, physical exam and plan: Yes Notes (Text): Patient seen, examined and case discussed with day-time resident. Patient underwent for colostomy today. patient reports postoperative pain which is expected. pain prn on board. We will need to follow-up with him in regards to if he is planning for chemotherapy and radiation. We will f/u with surgery to see when he is stable from their prespective for discharge. Assessment/Plan 1) Rectal Mass History of Mucinous Adenocarcinoma Prior history of colonic polyps * General Surgery consulted -Dr. Ruano - s/p biopsy of rectal mass and lymphadenopathy and s/p colostomy * Recommend for colostomy; radiation; chemotherapy * We will need to f/u pathology * Heme/Onc consulted - Dr. Castaneda * History of mucinous adenocarcinoma (diagnosed 10/2016) s/p chemotherapy (3-4 sessions, unclear why he did not continue) and partial proctectomy with proctoanal anastamosis 10/21/16 * EUS (11/01/16): uT3uN0 evidence of internal and sphincter invasion by EUS criteria. No lymph nodes were seen in perirectal region,, in a peritumoral location during endosonographic examination of the anal cancer, rectum, and sigmoid colon. * Imaging: * CT chest, ab, pelvis: Rectal mass noted 5.1 x 4.3 x 4.5 cm. LAD noted left groin measuring 2.5 x 3.0 x 3cm suspicious for metastatic disease * Management: * Anusol as needed * Percocet PRN * Patient is medically optimized for surgical intervention. patient's ekg showing sinus tachycardia, suspecting secondary to pain. Chest xray: stable severe thoracic levoscolilosis. No focal consolidation or pleural effusion. Per detskys criteria, had is considered low cardiac risk, subject to class 6% complications based on abnormal ekg. Surgery and anesthesia to discuss risk and benefits of procedure prior to procedure with patient. 2) Incidental liver hypodense lesion * Noted on CT scan 6mm focal lesion 3) Hx Neurofibromas * appears; however patient has not had genetic testing to confirm nor skin biopsy 4) Hx BPH * Restarted home medications: Proscar 5mg PO daily, Cardura 2mg PO daily 5) Hx Scoliosis 6) Hx HTN * Blood pressure control * start Lisinopril 10mg PO daily 7) Hx HLD * T, Cholestrol: 149, LDL: 102, HDL: 36 * Patient is currently not on a statin 8) Hx COPD * patient is not in acute exacerbation * will add duonebs PRN, advair 9) Hx Paraphimosis * s/p circumcision 10) Prophylaxis * GI: Protonix 40mg IVQ daily * DVT: SCDs, VTE c/i 2/2 biopsy * Palliative Care Consult for goals of care-->appreciate help. until we receive result of anal biospy Disposition: patient went colostomy today will follow-up in regards to discharge plan; and ultimate plans for chemo or radiation
[2018-01-01] MEDS ORDERED: Morphine 4 MG/ML VIAL IVP PRN (11:46)
[2018-01-01] MEDS ORDERED: Propofol 10 mg/ml Inj (20 ML) ONE ×2 (12:41→12:42)
[2018-01-01] MEDS ORDERED: Rocuronium 10 mg/ml (5 ml) ONE (12:42)
[2018-01-01] MEDS ORDERED: Lidocaine Hydrochloride 5 ML INJ ONE (12:42)
[2018-01-01] MEDS ORDERED: ceFAZolin 1 gm in NS 1 GM/100 ML BAG IVPB ONE (12:55)
[2018-01-01] MEDS ORDERED: Bacitracin 500 Units/gm Oint Foilpak UD ONE (13:32)
[2018-01-01] MEDS: HYDROmorphone 0.5 mg/0.5 ml ISec IVP PRN ×2 (13:57→14:10)
[2018-01-01 14:48] VITALS: RESP 20
--- NOTE | 2018-01-01 22:58 | OP ---
PROCEDURE DATE: 01/01/2018 PREOPERATIVE DIAGNOSIS: Rectal cancer. POSTOPERATIVE DIAGNOSIS: Rectal cancer. PROCEDURE: Diverting sigmoid colostomy. SURGEON: Chilo Ruano MD ANESTHESIA: General. BLOOD LOSS: 20 mL. POSTOPERATIVE CONDITION: Stable. DESCRIPTION OF PROCEDURE: The patient was taken to the operating room, general anesthesia was administered, and the abdomen was prepped and draped. A transverse incision was made in the left lower quadrant, and the abdomen was entered to multiple adhesions in that area and the small bowel was taken down off the peritoneum to careful dissection. A couple of small serosal tears were repaired with silk. Next, the sigmoid was brought into the wound and a serosal tear was also repaired. Next, a colostomy was placed to the mesentery and the colostomy was sutured to the fascia with a 2-0 Monocryl. The colostomy was then matured using 3-0 Monocryl and a stomal appliance was placed. The patient tolerated the procedure well. Returned to recovery room in stable condition. Chilo Ruano MD
[2018-01-02] MEDS: Morphine 4 MG/ML VIAL IVP PRN ×4 (00:19→20:38)
[2018-01-02 07:35] LABS: BASO % 0.2 % (0.0-2.0); EOS % 0.1 % (0.0-4.0); LYMPH # 0.9 K/uL (1.0-4.3); LYMPH % 8.6 % (20.0-40.0); MEAN CELL VOLUME 89.2 fL (80.0-94.0); MEAN CORPUSCULAR HEMOGLOBIN 30.8 pg (27.0-31.0); MEAN CORPUSCULAR HGB CONC 34.5 g/dL (33.0-37.0); MONO % 9.6 % (0.0-10.0); NEUT # 8.1 K/uL (1.8-7.0); NEUT % 81.5 % (50.0-75.0); NRBC % 0.1 % (0.0-2.0); PLATELET COUNT 230 K/uL (130-400); RBC 4.23 Mil/uL (4.40-5.90); RED CELL DISTRIBUTION WIDTH 13.2 % (11.5-14.5)
[2018-01-02 07:46] LABS: ALB/GLOB RATIO 1.2 (1.0-2.1); ALBUMIN 3.8 g/dL (3.5-5.0); ALT/SGPT 9 U/L (21-72); AST/SGOT 20 U/L (17-59); BLOOD UREA NITROGEN 9 mg/dL (9-20); CALCIUM 8.3 mg/dl (8.6-10.4); GFR AFRICAN-AMERICAN > 60; GFR NON-AFRICAN AMERICAN > 60
[2018-01-02 10:51] LABS: BANDS 2 % (0-2); LYMPHOCYTE 6 % (20-40); MONOCYTE 5 % (0-10); NEUTROPHIL 87 % (50-75); PLATELET ESTIMATE NORMAL (NORMAL); TOTAL CELLS COUNTED 100
[2018-01-02] MEDS: Hydrocortisone 2.5% Rectal Cream(30 gm) PR SCH ×2 (11:24→22:58)
--- NOTE | 2018-01-02 11:39 | CP.PCM.PN ---
<Shoaib Lunaa - Last Filed: 01/02/18 13:13> Subjective - Date & Time of Evaluation Date of Evaluation: 01/02/18 Time of Evaluation: 09:00 - Subjective Subjective: Medicine Note for Hospitalist Service- Dr. Rosales Patient was seen and examined at bedside. Admitted to rectal pain and discomfort. S/P rectal mass and LAD biopsy, s/p colostomy. Denied fever, chills , headaches, chest pain, shortness of breath, n/v/d/c, or urinary symptoms. Objective - Vital Signs/Intake and Output Vital Signs (last 24 hours): Temp Pulse Resp BP Pulse Ox 98.2 F 118 H 20 134/90 96 01/02/18 07:35 01/02/18 07:35 01/02/18 07:35 01/02/18 07:35 01/02/18 07:35 Intake and Output: 01/02/18 01/02/18 06:59 18:59 Output Total 450 Balance -450 - Medications Medications: Current Medications Albuterol/Ipratropium (Duoneb 3 Mg/0.5 Mg (3 Ml) Ud) 3 ml INH RQ6 PRN PRN Reason: Shortness of Breath Doxazosin Mesylate (Cardura) 2 mg PO DAILY [facility] Last Admin: 01/02/18 11:19 Dose: 2 mg Finasteride (Proscar) 5 mg PO DAILY [facility] Last Admin: 01/02/18 11:23 Dose: 5 mg Hydrocortisone (Anusol-Hc) 0 gm [place] BID [facility] Last Admin: 01/02/18 11:24 Dose: Not Given Lisinopril (Zestril) 10 mg PO DAILY [facility] Last Admin: 01/02/18 11:23 Dose: 10 mg Morphine Sulfate (Morphine) 1 mg IVP Q4H PRN PRN Reason: Pain, severe (8-10) Pantoprazole Sodium (Protonix Inj) 40 mg IVP DAILY [facility] Last Admin: 01/02/18 11:20 Dose: 40 mg Fluticasone/Salmeterol (Advair Diskus 250/50) 1 puff INH RQ12 [facility] Last Admin: 01/01/18 19:53 Dose: 1 puff - Labs Labs: 01/02/18 07:11 01/02/18 07:11 PT 12.3 SECONDS (9.7-12.2) H 12/29/17 16:47 INR 1.1 12/29/17 16:47 APTT 36 SECONDS (21-34) H 12/29/17 16:47 - Additional Findings Additional findings: - Constitutional Appears: Chronically Ill - Head Exam Head Exam: NORMAL INSPECTION, NORMOCEPHALIC - Eye Exam Eye Exam: EOMI, Normal appearance. absent: Nystagmus, Scleral icterus Pupil Exam: NORMAL ACCOMODATION - ENT Exam ENT Exam: Mucous Membranes Moist - Neck Exam Neck Exam: Normal Inspection. absent: Lymphadenopathy - Respiratory Exam Respiratory Exam: Clear to Ausculation Bilateral, NORMAL BREATHING PATTERN - Cardiovascular Exam Cardiovascular Exam: REGULAR RHYTHM, right port-a-cath noted - GI/Abdominal Exam GI & Abdominal Exam: Soft, Normal Bowel Sounds, colostomy in place, stoma pink, output noted in bag absent: Distended, Tenderness, Organomegaly - Rectal Exam Rectal Exam: Deferred - Extremities Exam Extremities Exam: absent: Calf Tenderness, Pedal Edema, Tenderness - Neurological Exam Neurological Exam: Alert, Awake, Oriented x3 - Skin Additional comments: multiple scattered neurofibromas all throughout body. [employer] la[employer] spots noted on both axilla, thighs, lower back. Assessment and Plan - Assessment and Plan (Free Text) Assessment: This is a 62M with PMHx of mucinous adenocarcinoma (diagnosed 10/2016) s/p chemotherapy (3-4 sessions) and partial proctectomy with proctoanal anastamosis 10/21/16, Neurofibromas, Scoliosis, HTN, HLD, COPD,and paraphimosis- s/p circumcision who presented with rectal pain. S/P biopsy of rectal mass and LAD on 12/30/[address] Ruano. S/P colostomy 01/01/18; plan for radiation, chemotherapy if patient is agreeable. Plan: Rectal Mass Left Groin LAD, suspicious for mets History of Mucinous Adenocarcinoma Prior history of colonic polyps General Surgery consulted -Dr. Ruano - s/p biopsy of rectal mass on 12/30/17 * S/P Colostomy 01/01/18 * Attending, resident, and palliative care nurse spoke to length about colostomy , chemotherapy and radiation. Patient ultimately agreed for colostomy but hesitant to agree to chemotherapy and radiation due to the side effects. Will consider and speak with his stepdaughter. * Spoke with Dr. Castaneda - pending the goals of care and what the patient is agreeable to, she will happily see the patient to resume treatment - will speak to Dr. Castaneda once patient decides his treatment plan * We will need to f/u pathology Heme/Onc consulted - Dr. Castaneda- help appreciated * History of mucinous adenocarcinoma (diagnosed 10/2016) s/p chemotherapy (1-2 sessions, unclear why he did not continue) and partial proctectomy with proctoanal anastamosis 10/21/16 * EUS (11/01/16): uT3uN0 evidence of internal and sphincter invasion by EUS criteria. No lymph nodes were seen in perirectal region,, in a peritumoral location during endosonographic examination of the anal cancer, rectum, and sigmoid colon. Imaging: - CT chest, ab, pelvis: Rectal mass noted 5.1 x 4.3 x 4.5 cm. LAD noted left groin measuring 2.5 x 3.0 x 3cm suspicious for metastatic disease Management: - Anusol as needed, Percocet, Morphine PRN - Patient is medically optimized for surgical intervention. patient's ekg showing sinus tachycardia, suspecting secondary to pain. Chest xray: stable severe thoracic levoscolilosis. No focal consolidation or pleural effusion. Per detskys criteria, had is considered low cardiac risk, subject to class 6% complications based on abnormal EKG. Surgery and anesthesia to discuss risk and benefits of procedure prior to procedure with patient. Incidental liver hypodense lesion - Noted on CT scan 6mm focal lesion - will need repeat in 3-6 months Hx Neurofibromas - Appears; however patient has not had genetic testing to confirm nor skin biopsy Hx BPH - Restarted home medications: Proscar 5mg PO daily, Cardura 2mg PO daily Hx HTN - Blood pressure control; will continue to follow Hx HLD - Patient is currently not on a statin - Lipid panel - wnl Hx COPD - Not in acute exacerbation - Duonebs PRN, advair Hx Paraphimosis - s/p circumcision Hx Scoliosis Prophylaxis - GI: Protonix 40mg IVQ daily - DVT: SCDs, VTE c/i 2/2 colostomy 01/01/18 Disposition: Pending pathology of rectal mass biopsy to determine treatment plan. Once goals of care are established and patient decides how extensive he wants his treatment to be ; will touch base with Dr. Castaneda again. S/P colostomy. Pending PT recommendations, visiting nurse approval. Daughter Edilma: [phone] Rosales, Neha Luna DO, PGY-1 <Darlene Rosales V - Last Filed: 01/03/18 12:46> Objective - Vital Signs/Intake and Output Vital Signs (last 24 hours): Temp Pulse Resp BP Pulse Ox 98.0 F 119 H 20 125/81 95 01/03/18 07:00 01/03/18 07:00 01/03/18 07:00 01/03/18 07:00 01/03/18 07:00 Intake and Output: 01/03/18 01/03/18 06:59 18:59 Intake Total 200 Output Total 100 Balance 100 - Medications Medications: Current Medications Albuterol/Ipratropium (Duoneb 3 Mg/0.5 Mg (3 Ml) Ud) 3 ml INH RQ6 PRN PRN Reason: Shortness of Breath Doxazosin Mesylate (Cardura) 2 mg PO DAILY [facility] Last Admin: 01/03/18 10:33 Dose: 2 mg Finasteride (Proscar) 5 mg PO DAILY [facility] Last Admin: 01/03/18 10:33 Dose: 5 mg Hydrocortisone (Anusol-Hc) 0 gm [place] BID [facility] Last Admin: 01/03/18 10:37 Dose: 1 applic Lisinopril (Zestril) 10 mg PO DAILY [facility] Last Admin: 01/03/18 10:33 Dose: 10 mg Morphine Sulfate (Morphine) 2 mg IVP Q4H PRN PRN Reason: Pain, moderate (4-7) Morphine Sulfate (Morphine) 4 mg IVP Q4 PRN PRN Reason: Pain, severe (8-10) Pantoprazole Sodium (Protonix Inj) 40 mg IVP DAILY [facility] Last Admin: 01/03/18 10:37 Dose: 40 mg Fluticasone/Salmeterol (Advair Diskus 250/50) 1 puff INH RQ12 [facility] Last Admin: 01/03/18 09:51 Dose: 1 puff - Labs Labs: 01/03/18 06:45 01/03/18 06:45 PT 12.3 SECONDS (9.7-12.2) H 12/29/17 16:47 INR 1.1 12/29/17 16:47 APTT 36 SECONDS (21-34) H 12/29/17 16:47 Attending/Attestation - Attestation I have personally seen and examined this patient.: Yes I have fully participated in the care of the patient.: Yes I have reviewed all pertinent clinical information, including history, physical exam and plan: Yes Notes (Text): This is late computer entry for 01/02/18. Patient seen, examined and case discussed with day-time resident. Patient underwent colostomy yesterday. Patient is reporting postoperative pain which is expected since his recent surgery yesterday. We will need to f/u with the patient regarding chemotherapy and radiation following hospitalization. He will need information for both filler shredder helper (Dr. Castaneda) and radiation-oncology (Dr. Amezcua) if he chooses to resume both. Patient to be evaluated by physical therapy today if he warrants rehab or not. Patient will need home care nursing if he is not candidate rehab and will need teaching in regards to ostomy care. Please note: patient's education level is very basic will need constant teaching and if daughter chooses to participate in her father's care should be taught as well. Pathology is pending for rectal mass and lymphadenopathy. Assessment/Plan 1) Rectal Mass History of Mucinous Adenocarcinoma Prior history of colonic polyps * Concern for malignancy * General Surgery consulted -Dr. Ruano - S/P biopsy of rectal mass and LAD on 12/30/[address] Ruano. S/P colostomy 01/01/18; plan for radiation, chemotherapy if patient is agreeable. * We will need to f/u pathology from surgery * Heme/Onc consulted - Dr. Castaneda * History of mucinous adenocarcinoma (diagnosed 10/2016) s/p chemotherapy (3-4 sessions, unclear why he did not continue) and partial proctectomy with proctoanal anastamosis 10/21/16 * EUS (11/01/16): uT3uN0 evidence of internal and sphincter invasion by EUS criteria. No lymph nodes were seen in perirectal region,, in a peritumoral location during endosonographic examination of the anal cancer, rectum, and sigmoid colon. * Imaging: * CT chest, ab, pelvis: Rectal mass noted 5.1 x 4.3 x 4.5 cm. LAD noted left groin measuring 2.5 x 3.0 x 3cm suspicious for metastatic disease. Perianal mass suspicious for malignancy. left groin mass/ adenopathy suspicious for metastasis disease. * Palliative care on board help appreciated * 01/02/18: Goals of care discussed. Doctor Rosales and Doctor Luna present as well. At first, I elicited patient's understanding about his disease. Patient admitted he was told last year that he had hemorrhoids and rectal cancer. Patient was not clear about why he did not finish his radiation Tx. Doctor Rosales further discussed his condition and reasons for colonoscopy and radiation of rectal area. Patient was not able to understand and repeatedly was asking what colostomy was for. I reviewed all proposed procedures and the rationales for it in a very simple language which patient could understand. He admitted of being afraid. I further offered more informations about rectal cancer, one of them being if patient becomes completely unable to move his bowels due to obstruction. Further I presented him with more info on stoma care and need for daily care. He stated understanding and agreed wiyh colostomy creation in am. Recommended: Doctor Ruano to review procedure with patient and obtain consent; Would change Percocet PO to Morphine 4 mg Im Q 4 hr PRN pain. Patient will most likely be NPO before and after Sx and IM pain meds are more appropriate; Patient needs constant reassurance and reinforcement * Management: * Anusol as needed * Morphine 1mg IV Q 4H PRN pain * Patient is medically optimized for surgical intervention. patient's ekg showing sinus tachycardia, suspecting secondary to pain. Chest xray: stable severe thoracic levoscolilosis. No focal consolidation or pleural effusion. Per detskys criteria, had is considered low cardiac risk, subject to class 6% complications based on abnormal ekg. Surgery and anesthesia to discuss risk and benefits of procedure prior to procedure with patient. 2) Incidental liver hypodense lesion * Noted on CT scan 6mm focal lesion 3) Hx Neurofibromas * appears; however patient has not had genetic testing to confirm nor skin biopsy 4) Hx BPH * Restarted home medications: Proscar 5mg PO daily, Cardura 2mg PO daily 5) Hx Scoliosis * Chest xray (12/29/17): stable severe thoracic levoscoliosis. No focal consildation or pleural effusion. * CT Chest/Abdomen/Pelvis (12/28/17): emphysema, marked scoliosis, no pulmonary mass 6) Hx HTN * Blood pressure control * start Lisinopril 10mg PO daily 7) Hx HLD * T, Cholesterol: 149, LDL: 102, HDL: 36 * Patient is currently not on a statin 8) Hx COPD * patient is not in acute exacerbation * will add duonebs PRN * Advair 250/50 1 puff inhaled Q12H * Chest xray (12/29/17): stable severe thoracic levoscoliosis. No focal consolidation or pleural effusion. * CT Chest/Abdomen/Pelvis (12/28/17): emphysema, marked scoliosis, no pulmonary mass 9) Hx Paraphimosis * s/p circumcision 10) Prophylaxis * GI: Protonix 40mg IVQ daily * DVT: SCDs; resume Heparin 5000 units subq8H * Palliative Care Consult for goals of care-->appreciate help.
[2018-01-03] MEDS: Morphine 4 MG/ML VIAL IVP PRN ×3 (01:44→12:56)
--- NOTE | 2018-01-03 05:41 | CP.PCM.PN ---
<Marsha Reilly - Last Filed: 01/03/18 05:38> Subjective - Date & Time of Evaluation Date of Evaluation: 01/03/18 Time of Evaluation: 05:38 - Subjective Subjective: Medicine progress note for Dr. Rosales's service Patient was seen and examined at bedside in no acute distress. Patient reports mild pain in his abdomen s/p colostomy; otherwise patient has no other complaints. Patient denies chest pain, dyspnea, nausea, vomiting, fevers, headaches, leg pain and swelling. No acute events overnight. Objective - Vital Signs/Intake and Output Vital Signs (last 24 hours): Temp Pulse Resp BP Pulse Ox 98.5 F 130 H 20 106/72 95 01/02/18 23:00 01/02/18 23:00 01/02/18 23:00 01/02/18 23:00 01/02/18 23:00 Intake and Output: 01/02/18 01/03/18 18:59 06:59 Intake Total 200 Output Total 250 Balance -250 200 - Medications Medications: Current Medications Albuterol/Ipratropium (Duoneb 3 Mg/0.5 Mg (3 Ml) Ud) 3 ml INH RQ6 PRN PRN Reason: Shortness of Breath Doxazosin Mesylate (Cardura) 2 mg PO DAILY [facility] Last Admin: 01/02/18 11:19 Dose: 2 mg Finasteride (Proscar) 5 mg PO DAILY [facility] Last Admin: 01/02/18 11:23 Dose: 5 mg Hydrocortisone (Anusol-Hc) 0 gm VA BID [facility] Last Admin: 01/02/18 22:58 Dose: 1 applic Lisinopril (Zestril) 10 mg PO DAILY [facility] Last Admin: 01/02/18 11:23 Dose: 10 mg Morphine Sulfate (Morphine) 1 mg IVP Q4H PRN PRN Reason: Pain, severe (8-10) Last Admin: 01/03/18 01:44 Dose: 1 mg Pantoprazole Sodium (Protonix Inj) 40 mg IVP DAILY [facility] Last Admin: 01/02/18 11:20 Dose: 40 mg Fluticasone/Salmeterol (Advair Diskus 250/50) 1 puff INH RQ12 [facility] Last Admin: 01/01/18 19:53 Dose: 1 puff - Labs Labs: 01/02/18 07:11 01/02/18 07:11 PT 12.3 SECONDS (9.7-12.2) H 12/29/17 16:47 INR 1.1 12/29/17 16:47 APTT 36 SECONDS (21-34) H 12/29/17 16:47 - Additional Findings Additional findings: - Constitutional Appears: Chronically Ill - Head Exam Head Exam: NORMAL INSPECTION, NORMOCEPHALIC - Eye Exam Eye Exam: EOMI, Normal appearance. absent: Nystagmus, Scleral icterus Pupil Exam: NORMAL ACCOMMODATION - ENT Exam ENT Exam: Mucous Membranes Moist - Respiratory Exam Respiratory Exam: Clear to Ausculation Bilateral, NORMAL BREATHING PATTERN - Cardiovascular Exam Cardiovascular Exam: REGULAR RHYTHM, right port-a-cath noted - GI/Abdominal Exam GI & Abdominal Exam: Soft, Normal Bowel Sounds, colostomy in place, stoma pink, output noted in bag absent: Distended, Tenderness, Organomegaly - Rectal Exam Rectal Exam: Deferred - Extremities Exam Extremities Exam: absent: Calf Tenderness, Pedal Edema, Tenderness - Neurological Exam Neurological Exam: Alert, Awake, Oriented x3 Assessment and Plan - Assessment and Plan (Free Text) Plan: This is a 62M with PMHx of mucinous adenocarcinoma (diagnosed 10/2016) s/p chemotherapy (3-4 sessions) and partial proctectomy with proctoanal anastamosis 10/21/16, Neurofibromas, Scoliosis, HTN, HLD, COPD,and paraphimosis- s/p circumcision who presented with rectal pain. S/P biopsy of rectal mass and LAD on 12/30/[address] Ruano. S/P colostomy 01/01/18; plan for radiation, chemotherapy if patient is agreeable. Plan: Rectal Mass Left Groin LAD, suspicious for mets History of Mucinous Adenocarcinoma Prior history of colonic polyps General Surgery consulted -Dr. Ruano - s/p biopsy of rectal mass on 12/30/17 * S/P Colostomy 01/01/18 * Attending, resident, and palliative care nurse spoke to length about colostomy , chemotherapy and radiation. Patient ultimately agreed for colostomy but hesitant to agree to chemotherapy and radiation due to the side effects. Will consider and speak with his stepdaughter. * Spoke with Dr. Castaneda - pending the goals of care and what the patient is agreeable to, she will happily see the patient to resume treatment - will speak to Dr. Castaneda once patient decides his treatment plan * Pathology: * Rectal mass: fibroadipose and muscular tissue involved by adenocarcinoma w/ mucinous features * Left inguinal lymph node: nodular fragment of adenocarcinoma w/ mucinous features Heme/Onc consulted - Dr. Castaneda- help appreciated * History of mucinous adenocarcinoma (diagnosed 10/2016) s/p chemotherapy (1-2 sessions, unclear why he did not continue) and partial proctectomy with proctoanal anastamosis 10/21/16 * EUS (11/01/16): [id number] evidence of internal and sphincter invasion by EUS criteria. No lymph nodes were seen in perirectal region,, in a peritumoral location during endosonographic examination of the anal cancer, rectum, and sigmoid colon. Imaging: - CT chest, ab, pelvis: Rectal mass noted 5.1 x 4.3 x 4.5 cm. LAD noted left groin measuring 2.5 x 3.0 x 3cm suspicious for metastatic disease Management: - Anusol as needed, Percocet, Morphine PRN - Patient is medically optimized for surgical intervention. patient's ekg showing sinus tachycardia, suspecting secondary to pain. Chest xray: stable severe thoracic levoscolilosis. No focal consolidation or pleural effusion. Per detskys criteria, had is considered low cardiac risk, subject to class 6% complications based on abnormal EKG. Surgery and anesthesia to discuss risk and benefits of procedure prior to procedure with patient. Incidental liver hypodense lesion - Noted on CT scan 6mm focal lesion - will need repeat in 3-6 months Hx Neurofibromas - Appears; however patient has not had genetic testing to confirm nor skin biopsy Hx BPH - Restarted home medications: Proscar 5mg PO daily, Cardura 2mg PO daily Hx HTN - Blood pressure control; will continue to follow Hx HLD - Patient is currently not on a statin - Lipid panel - wnl Hx COPD - Not in acute exacerbation - Duonebs PRN, advair Hx Paraphimosis - s/p circumcision Hx Scoliosis Prophylaxis - GI: Protonix 40mg IVQ daily - DVT: SCDs, VTE c/i 2/2 colostomy 01/01/18 Disposition: Once goals of care are established and patient decides how extensive he wants his treatment to be, will touch base with Dr. Castaneda again. S/ P colostomy. Pending PT recommendations, visiting nurse approval. Daughter Edilma: [phone] <Darlene Rosales V - Last Filed: 01/03/18 12:53> Objective - Vital Signs/Intake and Output Vital Signs (last 24 hours): Temp Pulse Resp BP Pulse Ox 98.0 F 119 H 20 125/81 95 01/03/18 07:00 01/03/18 07:00 01/03/18 07:00 01/03/18 07:00 01/03/18 07:00 Intake and Output: 01/03/18 01/03/18 06:59 18:59 Intake Total 200 Output Total 100 Balance 100 - Medications Medications: Current Medications Albuterol/Ipratropium (Duoneb 3 Mg/0.5 Mg (3 Ml) Ud) 3 ml INH RQ6 PRN PRN Reason: Shortness of Breath Doxazosin Mesylate (Cardura) 2 mg PO DAILY [facility] Last Admin: 01/03/18 10:33 Dose: 2 mg Finasteride (Proscar) 5 mg PO DAILY [facility] Last Admin: 01/03/18 10:33 Dose: 5 mg Heparin Sodium (Porcine) (Heparin) 5,000 units SC Q8 [facility] Hydrocortisone (Anusol-Hc) 0 gm VA BID [facility] Last Admin: 01/03/18 10:37 Dose: 1 applic Lisinopril (Zestril) 10 mg PO DAILY [facility] Last Admin: 01/03/18 10:33 Dose: 10 mg Morphine Sulfate (Morphine) 2 mg IVP Q4H PRN PRN Reason: Pain, moderate (4-7) Morphine Sulfate (Morphine) 4 mg IVP Q4 PRN PRN Reason: Pain, severe (8-10) Pantoprazole Sodium (Protonix Inj) 40 mg IVP DAILY [facility] Last Admin: 01/03/18 10:37 Dose: 40 mg Fluticasone/Salmeterol (Advair Diskus 250/50) 1 puff INH RQ12 [facility] Last Admin: 01/03/18 09:51 Dose: 1 puff - Labs Labs: 01/03/18 06:45 01/03/18 06:45 PT 12.3 SECONDS (9.7-12.2) H 12/29/17 16:47 INR 1.1 12/29/17 16:47 APTT 36 SECONDS (21-34) H 12/29/17 16:47 Attending/Attestation - Attestation I have personally seen and examined this patient.: Yes I have fully participated in the care of the patient.: Yes I have reviewed all pertinent clinical information, including history, physical exam and plan: Yes Notes (Text): Patient seen, examined and case discussed with medical lab director. Patient seen at bedside sleeping. Patient is reporting abdominal pain likely postoperative. Patient's ostomy: pink, liquid output. Patient is tachycardic--->will order for Chest xray and thyoid studies but I believe it is due to pain. Amended pain regiment: Morphine 2mg Iv Q4 H PRN moderate pain; Morphine 4mg IV Q 4H severe pain. Patient is pending home nursing will not be available until Friday. There is no family at bedside to initiate further conversation about patient's decision regarding chemotherapy and radiation. Assessment/Plan 1) Rectal Mass History of Mucinous Adenocarcinoma Prior history of colonic polyps * Concern for malignancy-->involved by adenocarcinoma with mucinous features. * General Surgery consulted -Dr. Ruano - S/P biopsy of rectal mass and LAD on 12/30/[address] Runao. S/P colostomy 01/01/18; plan for radiation, chemotherapy if patient is agreeable. * Rectal Mass-->Fibroadipose and muscular tissue involved by adenocarcinoma with mucinous features. * Left inguinal-->nodular adenocarcinoma with mucinous features. * Portion rectal tumor-->Fibroadipose and muscular tissue involved by adenocarcinoma with mucinous features. * Heme/Onc consulted - Dr. Castaneda * History of mucinous adenocarcinoma (diagnosed 10/2016) s/p chemotherapy (3-4 sessions, unclear why he did not continue) and partial proctectomy with proctoanal anastamosis 10/21/16 * EUS (11/01/16): uT3uN0 evidence of internal and sphincter invasion by EUS criteria. No lymph nodes were seen in perirectal region,, in a peritumoral location during endosonographic examination of the anal cancer, rectum, and sigmoid colon. * Imaging: * CT chest, ab, pelvis: Rectal mass noted 5.1 x 4.3 x 4.5 cm. LAD noted left groin measuring 2.5 x 3.0 x 3cm suspicious for metastatic disease. Perianal mass suspicious for malignancy. left groin mass/ adenopathy suspicious for metastasis disease. * Palliative care on board help appreciated * 01/02/18: Goals of care discussed. Doctor Rosales and Doctor Luna present as well. At first, I elicited patient's understanding about his disease. Patient admitted he was told last year that he had hemorrhoids and rectal cancer. Patient was not clear about why he did not finish his radiation Tx. Doctor Rosales further discussed his condition and reasons for colonoscopy and radiation of rectal area. Patient was not able to understand and repeatedly was asking what colostomy was for. I reviewed all proposed procedures and the rationales for it in a very simple language which patient could understand. He admitted of being afraid. I further offered more informations about rectal cancer, one of them being if patient becomes completely unable to move his bowels due to obstruction. Further I presented him with more info on stoma care and need for daily care. He stated understanding and agreed wiyh colostomy creation in am. Recommended: Doctor Ruano to review procedure with patient and obtain consent; Would change Percocet PO to Morphine 4 mg Im Q 4 hr PRN pain. Patient will most likely be NPO before and after Sx and IM pain meds are more appropriate; Patient needs constant reassurance and reinforcement * Management: * Anusol as needed * Morphine 2mg IV Q 4H PRN pain, moderate * Morphine 4mg IV Q 4H PRN pain, severe * Patient is medically optimized for surgical intervention. patient's ekg showing sinus tachycardia, suspecting secondary to pain. Chest xray: stable severe thoracic levoscolilosis. No focal consolidation or pleural effusion. Per detskys criteria, had is considered low cardiac risk, subject to class 6% complications based on abnormal ekg. Surgery and anesthesia to discuss risk and benefits of procedure prior to procedure with patient. 2) Incidental liver hypodense lesion * Noted on CT scan 6mm focal lesion 3) Hx Neurofibromas * appears; however patient has not had genetic testing to confirm nor skin biopsy 4) Hx BPH * Restarted home medications: Proscar 5mg PO daily, Cardura 2mg PO daily 5) Hx Scoliosis * Chest xray (12/29/17): stable severe thoracic levoscoliosis. No focal consildation or pleural effusion. * CT Chest/Abdomen/Pelvis (12/28/17): emphysema, marked scoliosis, no pulmonary mass 6) Hx HTN * Blood pressure control * start Lisinopril 10mg PO daily 7) Hx HLD * T, Cholesterol: 149, LDL: 102, HDL: 36 * Patient is currently not on a statin 8) Hx COPD * patient is not in acute exacerbation * will add duonebs PRN * Advair 250/50 1 puff inhaled Q12H * Chest xray (12/29/17): stable severe thoracic levoscoliosis. No focal consolidation or pleural effusion. * CT Chest/Abdomen/Pelvis (12/28/17): emphysema, marked scoliosis, no pulmonary mass 9) Hx Paraphimosis * s/p circumcision 10) Prophylaxis * GI: Protonix 40mg IVQ daily * DVT: SCDs; Heparin 5000 units subq8H * Palliative Care Consult for goals of care-->appreciate help. Disposition: achieve pain control, patient to be setup for home nursing and ostomy care for Friday discharge.
[2018-01-03 07:00] LABS: BASO % 0.2 % (0.0-2.0); EOS % 0.3 % (0.0-4.0); HEMOGLOBIN 12.8 g/dL (12.0-18.0); LYMPH % 12.5 % (20.0-40.0); MEAN CELL VOLUME 89.1 fL (80.0-94.0); MEAN CORPUSCULAR HGB CONC 34.7 g/dL (33.0-37.0); MEAN PLATELET VOLUME 6.8 fL (7.2-11.7); MONO # 0.9 K/uL (0.0-0.8); MONO % 10.8 % (0.0-10.0); NEUT # 6.4 K/uL (1.8-7.0); NEUT % 76.2 % (50.0-75.0); RBC 4.15 Mil/uL (4.40-5.90); RED CELL DISTRIBUTION WIDTH 12.9 % (11.5-14.5); WHITE BLOOD COUNT 8.3 K/uL (4.8-10.8)
[2018-01-03 07:34] LABS: ALB/GLOB RATIO 1.2 (1.0-2.1); ALBUMIN 3.8 g/dL (3.5-5.0); ALT/SGPT 12 U/L (21-72); AST/SGOT 23 U/L (17-59); BLOOD UREA NITROGEN 13 mg/dL (9-20); CALCIUM 8.4 mg/dl (8.6-10.4); GFR AFRICAN-AMERICAN > 60; GFR NON-AFRICAN AMERICAN > 60
[2018-01-03] MEDS: Fluticasone-Salmeterol 250-50mcg Diskus INH SCH ×3 (09:41→19:48)
[2018-01-03] MEDS: Hydrocortisone 2.5% Rectal Cream(30 gm) PR SCH ×2 (10:37→19:00)
[2018-01-03] MEDS ORDERED: Morphine 4 MG/ML VIAL IVP PRN (12:21)
[2018-01-03] MEDS ORDERED: Oxycodone/Acetaminophen 5/325 mg Tab PO PRN (12:21)
--- NOTE | 2018-01-03 17:08 | RAD ---
HISTORY: tachycardia COMPARISON: Portable chest 12/28/2017. FINDINGS: LUNGS: The chest is markedly distorted by gross scoliotic spinal deformity. There is no interval change in the appearance of the chest when compared to prior radiograph 12/28/2017 or even distant prior chest rated dated 02/17/2017 prior therefore, no active cardiopulmonary disease is suspected at this time. MediPort unchanged in position. PLEURA: No significant pleural effusion identified, no pneumothorax apparent. CARDIOVASCULAR: Cardiac silhouette appears normal. No definitive pulmonary vascular congestion. OSSEOUS STRUCTURES: No significant abnormalities. VISUALIZED UPPER ABDOMEN: Normal. OTHER FINDINGS: None. IMPRESSION: No acute cardiopulmonary is suspected. Gross thoracic spinal scoliosis distorts the thoracic evaluation, particularly the left chest. MediPort unchanged in position.
--- NOTE | 2018-01-04 01:46 | CP.PCM.PN ---
<Marsha Reilly - Last Filed: 01/04/18 01:43> Subjective - Date & Time of Evaluation Date of Evaluation: 01/04/18 Time of Evaluation: 01:43 - Subjective Subjective: Medicine progress note for Dr. Rosales's service Patient was seen and examined at bedside. Patient reports having pain in his abdomen s/p colostomy and burning in his rectum. He states the pain is the same pain he has been experience for the past 3 months. Patient appears uncomfortable. Patient states pain medication has been helping. Patient denies chest pain, dyspnea, nausea, vomiting, fevers, headaches, leg pain and swelling. No acute events overnight. Objective - Vital Signs/Intake and Output Vital Signs (last 24 hours): Temp Pulse Resp BP Pulse Ox 98.2 F 122 H 20 107/63 95 01/03/18 23:05 01/03/18 23:05 01/03/18 23:05 01/03/18 23:05 01/03/18 23:05 Intake and Output: 01/03/18 01/04/18 18:59 06:59 Intake Total 350 Output Total 400 Balance -50 - Medications Medications: Current Medications Albuterol/Ipratropium (Duoneb 3 Mg/0.5 Mg (3 Ml) Ud) 3 ml INH RQ6 PRN PRN Reason: Shortness of Breath Doxazosin Mesylate (Cardura) 2 mg PO DAILY [facility] Last Admin: 01/03/18 10:33 Dose: 2 mg Finasteride (Proscar) 5 mg PO DAILY [facility] Last Admin: 01/03/18 10:33 Dose: 5 mg Heparin Sodium (Porcine) (Heparin) 5,000 units SC Q8 [facility] Last Admin: 01/03/18 23:00 Dose: 5,000 units Hydrocortisone (Anusol-Hc) 0 gm SD BID [facility] Last Admin: 01/03/18 19:00 Dose: 1 applic Lisinopril (Zestril) 10 mg PO DAILY [facility] Last Admin: 01/03/18 10:33 Dose: 10 mg Morphine Sulfate (Morphine) 2 mg IVP Q4H PRN PRN Reason: Pain, moderate (4-7) Morphine Sulfate (Morphine) 4 mg IVP Q4 PRN PRN Reason: Pain, severe (8-10) Pantoprazole Sodium (Protonix Ec Tab) 40 mg PO DAILY [facility] Fluticasone/Salmeterol (Advair Diskus 250/50) 1 puff INH RQ12 [facility] Last Admin: 01/03/18 19:48 Dose: 1 puff - Labs Labs: 01/03/18 06:45 01/03/18 06:45 PT 12.3 SECONDS (9.7-12.2) H 12/29/17 16:47 INR 1.1 12/29/17 16:47 APTT 36 SECONDS (21-34) H 12/29/17 16:47 - Additional Findings Additional findings: - Constitutional Appears: Chronically Ill - Head Exam Head Exam: NORMAL INSPECTION, NORMOCEPHALIC - Eye Exam Eye Exam: EOMI, Normal appearance. absent: Nystagmus, Scleral icterus Pupil Exam: NORMAL ACCOMMODATION - ENT Exam ENT Exam: Mucous Membranes Moist - Respiratory Exam Respiratory Exam: Clear to Ausculation Bilateral, NORMAL BREATHING PATTERN - Cardiovascular Exam Cardiovascular Exam: REGULAR RHYTHM, right port-a-cath noted - GI/Abdominal Exam GI & Abdominal Exam: Normal Bowel Sounds, colostomy in place, stoma pink, output noted in bag, mild diffuse tenderness with palpation. absent: Distended , Organomegaly - Extremities Exam Extremities Exam: absent: Calf Tenderness, Pedal Edema, Tenderness - Neurological Exam Neurological Exam: Alert, Awake, Oriented x3 Assessment and Plan - Assessment and Plan (Free Text) Plan: This is a 62M with PMHx of mucinous adenocarcinoma (diagnosed 10/2016) s/p chemotherapy (3-4 sessions) and partial proctectomy with proctoanal anastamosis 10/21/16, Neurofibromas, Scoliosis, HTN, HLD, COPD,and paraphimosis- s/p circumcision who presented with rectal pain. S/P biopsy of rectal mass and LAD on 12/30/[address] Ruano. S/P colostomy 01/01/18; plan for radiation, chemotherapy if patient is agreeable. Plan: Rectal Mass Left Groin LAD, suspicious for mets History of Mucinous Adenocarcinoma Prior history of colonic polyps General Surgery consulted -Dr. Ruano - s/p biopsy of rectal mass on 12/30/17 * S/P Colostomy 01/01/18 * Attending, resident, and palliative care nurse spoke to length about colostomy , chemotherapy and radiation. Patient ultimately agreed for colostomy but hesitant to agree to chemotherapy and radiation due to the side effects. Will consider and speak with his stepdaughter. * Spoke with Dr. Castaneda - pending the goals of care and what the patient is agreeable to, she will happily see the patient to resume treatment - will speak to Dr. Castaneda once patient decides his treatment plan * Pathology: * Rectal mass: fibroadipose and muscular tissue involved by adenocarcinoma w/ mucinous features * Left inguinal lymph node: nodular fragment of adenocarcinoma w/ mucinous features Heme/Onc consulted - Dr. Castaneda- help appreciated * History of mucinous adenocarcinoma (diagnosed 10/2016) s/p chemotherapy (1-2 sessions, unclear why he did not continue) and partial proctectomy with proctoanal anastamosis 10/21/16 * EUS (11/01/16): uT3uN0 evidence of internal and sphincter invasion by EUS criteria. No lymph nodes were seen in perirectal region,, in a peritumoral location during endosonographic examination of the anal cancer, rectum, and sigmoid colon. Imaging: - CT chest, ab, pelvis: Rectal mass noted 5.1 x 4.3 x 4.5 cm. LAD noted left groin measuring 2.5 x 3.0 x 3cm suspicious for metastatic disease Management: - Anusol as needed, Percocet, Morphine PRN - Patient is medically optimized for surgical intervention. patient's ekg showing sinus tachycardia, suspecting secondary to pain. Chest xray: stable severe thoracic levoscolilosis. No focal consolidation or pleural effusion. Per detskys criteria, had is considered low cardiac risk, subject to class 6% complications based on abnormal EKG. Surgery and anesthesia to discuss risk and benefits of procedure prior to procedure with patient. Incidental liver hypodense lesion - Noted on CT scan 6mm focal lesion - will need repeat in 3-6 months Hx Neurofibromas - Appears; however patient has not had genetic testing to confirm nor skin biopsy Hx BPH - Restarted home medications: Proscar 5mg PO daily, Cardura 2mg PO daily Hx HTN - Blood pressure control; will continue to follow Hx HLD - Patient is currently not on a statin - Lipid panel - wnl Hx COPD - Not in acute exacerbation - Duonebs PRN, advair Hx Paraphimosis - s/p circumcision Hx Scoliosis Tachycardia: likley secondary to pain CXR: no acute disease TSH/Free T4: 1.59/1.64, within normal range Prophylaxis - GI: Protonix 40mg IVQ daily - DVT: SCDs, VTE c/i 2/2 colostomy 01/01/18 Disposition: Pain management; patient to be setup for home nursing and ostomy care for Friday discharge. Daughter Edilma: [phone] <Darlene Rosales V - Last Filed: 01/04/18 13:35> Objective - Vital Signs/Intake and Output Vital Signs (last 24 hours): Temp Pulse Resp BP Pulse Ox 98.1 F 121 H 20 132/85 96 01/04/18 08:37 01/04/18 08:37 01/04/18 08:37 01/04/18 10:27 01/04/18 08:37 Intake and Output: 01/04/18 01/04/18 06:59 18:59 Intake Total 350 Output Total 500 Balance -150 - Medications Medications: Current Medications Albuterol/Ipratropium (Duoneb 3 Mg/0.5 Mg (3 Ml) Ud) 3 ml INH RQ6 PRN PRN Reason: Shortness of Breath Doxazosin Mesylate (Cardura) 2 mg PO DAILY [facility] Last Admin: 01/04/18 10:31 Dose: 2 mg Finasteride (Proscar) 5 mg PO DAILY [facility] Last Admin: 01/04/18 10:32 Dose: 5 mg Heparin Sodium (Porcine) (Heparin) 5,000 units SC Q8 [facility] Last Admin: 01/04/18 05:42 Dose: 5,000 units Hydrocortisone (Anusol-Hc) 0 gm SD BID [facility] Last Admin: 01/04/18 10:31 Dose: 1 applic Lisinopril (Zestril) 10 mg PO DAILY [facility] Last Admin: 01/04/18 10:32 Dose: 10 mg Metoprolol Tartrate (Lopressor) 25 mg PO BID [facility] Last Admin: 01/04/18 10:27 Dose: 25 mg Morphine Sulfate (Morphine) 2 mg IVP Q4H PRN PRN Reason: Pain, moderate (4-7) Morphine Sulfate (Morphine) 4 mg IVP Q4 PRN PRN Reason: Pain, severe (8-10) Last Admin: 01/04/18 10:32 Dose: 4 mg Pantoprazole Sodium (Protonix Ec Tab) 40 mg PO DAILY [facility] Last Admin: 01/04/18 10:31 Dose: 40 mg Fluticasone/Salmeterol (Advair Diskus 250/50) 1 puff INH RQ12 [facility] Last Admin: 01/04/18 08:02 Dose: 1 puff - Labs Labs: 01/04/18 07:45 01/04/18 07:45 PT 12.3 SECONDS (9.7-12.2) H 12/29/17 16:47 INR 1.1 12/29/17 16:47 APTT 36 SECONDS (21-34) H 12/29/17 16:47 Attending/Attestation - Attestation I have personally seen and examined this patient.: Yes I have fully participated in the care of the patient.: Yes I have reviewed all pertinent clinical information, including history, physical exam and plan: Yes Notes (Text): Patient seen, examined and case discussed with regional medical director. Patient seen at bedside sleeping. Patient is reporting abdominal pain likely postoperative. Patient's ostomy: pink, liquid output. Discussed with RN, Airam Robert, patient received Morphine 2mg IV X1 overnight but did not help with pain; patient given Morphine 4mg IVX1 today which helped. Patient started on Lopressor 25mg PO BID given persistent tachycardia. Thyroid studies are normal. Chest xray (01/03/18): no acute cardiopulmonary is suspected. gross thoracic spinal scoliosis distorts the thoracic evaluation, particularly the left chest. mediport unchanged in position. Patient's daughter did not in yesterday and discussed with nursing to page if patient has visitor or daughter comes to discuss. Patient is pending home nursing will not be available until Friday. There is no family at bedside to initiate further conversation about patient's decision regarding chemotherapy and radiation today. Assessment/Plan 1) Rectal Mass History of Mucinous Adenocarcinoma Prior history of colonic polyps * Concern for malignancy-->involved by adenocarcinoma with mucinous features. * General Surgery consulted -Dr. Ruano - S/P biopsy of rectal mass and LAD on 12/30/[address] Ruano. S/P colostomy 01/01/18; plan for radiation, chemotherapy if patient is agreeable. * Rectal Mass-->Fibroadipose and muscular tissue involved by adenocarcinoma with mucinous features. * Left inguinal-->nodular adenocarcinoma with mucinous features. * Portion rectal tumor-->Fibroadipose and muscular tissue involved by adenocarcinoma with mucinous features. * Heme/Onc consulted - Dr. Castaneda * History of mucinous adenocarcinoma (diagnosed 10/2016) s/p chemotherapy (3-4 sessions, unclear why he did not continue) and partial proctectomy with proctoanal anastamosis 10/21/16 * EUS (11/01/16): uT3uN0 evidence of internal and sphincter invasion by EUS criteria. No lymph nodes were seen in perirectal region,, in a peritumoral location during endosonographic examination of the anal cancer, rectum, and sigmoid colon. * Imaging: * CT chest, ab, pelvis: Rectal mass noted 5.1 x 4.3 x 4.5 cm. LAD noted left groin measuring 2.5 x 3.0 x 3cm suspicious for metastatic disease. Perianal mass suspicious for malignancy. left groin mass/ adenopathy suspicious for metastasis disease. * Palliative care on board help appreciated * 01/02/18: Goals of care discussed. Doctor Rosales and Doctor Luna present as well. At first, I elicited patient's understanding about his disease. Patient admitted he was told last year that he had hemorrhoids and rectal cancer. Patient was not clear about why he did not finish his radiation Tx. Doctor Rosales further discussed his condition and reasons for colonoscopy and radiation of rectal area. Patient was not able to understand and repeatedly was asking what colostomy was for. I reviewed all proposed procedures and the rationales for it in a very simple language which patient could understand. He admitted of being afraid. I further offered more informations about rectal cancer, one of them being if patient becomes completely unable to move his bowels due to obstruction. Further I presented him with more info on stoma care and need for daily care. He stated understanding and agreed wiyh colostomy creation in am. Recommended: Doctor Ruano to review procedure with patient and obtain consent; Would change Percocet PO to Morphine 4 mg Im Q 4 hr PRN pain. Patient will most likely be NPO before and after Sx and IM pain meds are more appropriate; Patient needs constant reassurance and reinforcement * Management: * Anusol as needed * Morphine 2mg IV Q 4H PRN pain, moderate * Morphine 4mg IV Q 4H PRN pain, severe * Patient is medically optimized for surgical intervention. patient's ekg showing sinus tachycardia, suspecting secondary to pain. Chest xray: stable severe thoracic levoscolilosis. No focal consolidation or pleural effusion. Per detskys criteria, had is considered low cardiac risk, subject to class 6% complications based on abnormal ekg. Surgery and anesthesia to discuss risk and benefits of procedure prior to procedure with patient. 2) Incidental liver hypodense lesion * Noted on CT scan 6mm focal lesion 3) Hx Neurofibromas * appears; however patient has not had genetic testing to confirm nor skin biopsy 4) Hx BPH * Restarted home medications: Proscar 5mg PO daily, Cardura 2mg PO daily 5) Hx Scoliosis * Chest xray (12/29/17): stable severe thoracic levoscoliosis. No focal consolidation or pleural effusion. * CT Chest/Abdomen/Pelvis (12/28/17): emphysema, marked scoliosis, no pulmonary mass 6) Hx HTN * Blood pressure control * start Lisinopril 10mg PO daily 7) Hx HLD * T, Cholesterol: 149, LDL: 102, HDL: 36 * Patient is currently not on a statin 8) Hx COPD * patient is not in acute exacerbation * will add duonebs PRN * Advair 250/50 1 puff inhaled Q12H * Chest xray (12/29/17): stable severe thoracic levoscoliosis. No focal consolidation or pleural effusion. * CT Chest/Abdomen/Pelvis (12/28/17): emphysema, marked scoliosis, no pulmonary mass 9) Hx Paraphimosis * s/p circumcision 10) Prophylaxis * GI: Protonix 40mg IVQ daily * DVT: SCDs; Heparin 5000 units subq8H * Palliative Care Consult for goals of care-->appreciate help. Disposition: achieve pain control, patient to be setup for home nursing and ostomy care for Friday discharge. monitor heart rate.
[2018-01-04] MEDS: Morphine 4 MG/ML VIAL IVP PRN (01:47)
[2018-01-04] MEDS: Fluticasone-Salmeterol 250-50mcg Diskus INH SCH ×2 (08:02→19:36)
[2018-01-04 08:04] LABS: BASO % 0.3 % (0.0-2.0); EOS # 0.1 K/uL (0.0-0.7); EOS % 0.8 % (0.0-4.0); HEMOGLOBIN 12.5 g/dL (12.0-18.0); LYMPH % 13.8 % (20.0-40.0); MEAN CELL VOLUME 89.4 fL (80.0-94.0); MEAN CORPUSCULAR HEMOGLOBIN 31.1 pg (27.0-31.0); MEAN CORPUSCULAR HGB CONC 34.8 g/dL (33.0-37.0); MEAN PLATELET VOLUME 6.7 fL (7.2-11.7); MONO # 0.8 K/uL (0.0-0.8); MONO % 10.9 % (0.0-10.0); NEUT # 5.5 K/uL (1.8-7.0); NEUT % 74.2 % (50.0-75.0); RBC 4.02 Mil/uL (4.40-5.90); RED CELL DISTRIBUTION WIDTH 13.1 % (11.5-14.5); WHITE BLOOD COUNT 7.4 K/uL (4.8-10.8)
[2018-01-04 08:20] LABS: ALB/GLOB RATIO 1.1 (1.0-2.1); ALBUMIN 3.7 g/dL (3.5-5.0); ALT/SGPT 16 U/L (21-72); AST/SGOT 24 U/L (17-59); BLOOD UREA NITROGEN 17 mg/dL (9-20); CALCIUM 8.6 mg/dl (8.6-10.4); GFR AFRICAN-AMERICAN > 60; GFR NON-AFRICAN AMERICAN > 60
[2018-01-04] MEDS: Hydrocortisone 2.5% Rectal Cream(30 gm) PR SCH ×2 (10:31→18:01)
[2018-01-04] MEDS: Pantoprazole 40 mg EC Tab PO SCH (10:31)
--- NOTE | 2018-01-05 00:31 | CP.PCM.PN ---
<David Muller - Last Filed: 01/05/18 00:40> Subjective - Date & Time of Evaluation Date of Evaluation: 01/05/18 Time of Evaluation: 00:30 - Subjective Subjective: Progress note. Patient seen and examined at bedside. Patient reports minimal pain in his abdomen s/p colostomy and burning in his rectum. He states the pain is the same pain he has been experience for the past 3 months. Patient is resting comfortably. Patient states pain medication has been helping. Patient denies chest pain, dyspnea, nausea, vomiting, fevers, headaches, leg pain and swelling. No acute events overnight. Objective - Vital Signs/Intake and Output Vital Signs (last 24 hours): Temp Pulse Resp BP Pulse Ox 98.8 F 101 H 20 113/69 96 01/04/18 15:17 01/04/18 15:17 01/04/18 15:17 01/04/18 18:01 01/04/18 15:17 - Medications Medications: Current Medications Albuterol/Ipratropium (Duoneb 3 Mg/0.5 Mg (3 Ml) Ud) 3 ml INH RQ6 PRN PRN Reason: Shortness of Breath Doxazosin Mesylate (Cardura) 2 mg PO DAILY [facility] Last Admin: 01/04/18 10:31 Dose: 2 mg Finasteride (Proscar) 5 mg PO DAILY [facility] Last Admin: 01/04/18 10:32 Dose: 5 mg Heparin Sodium (Porcine) (Heparin) 5,000 units SC Q8 [facility] Last Admin: 01/04/18 22:12 Dose: 5,000 units Hydrocortisone (Anusol-Hc) 0 gm DE BID [facility] Last Admin: 01/04/18 18:01 Dose: 1 applic Lisinopril (Zestril) 10 mg PO DAILY [facility] Last Admin: 01/04/18 10:32 Dose: 10 mg Metoprolol Tartrate (Lopressor) 25 mg PO BID [facility] Last Admin: 01/04/18 18:01 Dose: 25 mg Morphine Sulfate (Morphine) 2 mg IVP Q4H PRN PRN Reason: Pain, moderate (4-7) Last Admin: 01/04/18 18:12 Dose: 2 mg Morphine Sulfate (Morphine) 4 mg IVP Q4 PRN PRN Reason: Pain, severe (8-10) Last Admin: 01/04/18 10:32 Dose: 4 mg Pantoprazole Sodium (Protonix Ec Tab) 40 mg PO DAILY [facility] Last Admin: 01/04/18 10:31 Dose: 40 mg Fluticasone/Salmeterol (Advair Diskus 250/50) 1 puff INH RQ12 [facility] Last Admin: 01/04/18 19:36 Dose: 1 puff - Labs Labs: 01/04/18 07:45 01/04/18 07:45 PT 12.3 SECONDS (9.7-12.2) H 12/29/17 16:47 INR 1.1 12/29/17 16:47 APTT 36 SECONDS (21-34) H 12/29/17 16:47 - Constitutional Appears: Chronically Ill - Head Exam Head Exam: ATRAUMATIC, NORMAL INSPECTION, NORMOCEPHALIC - Eye Exam Eye Exam: EOMI - ENT Exam ENT Exam: Mucous Membranes Moist - Neck Exam Neck Exam: Full ROM, Normal Inspection - Respiratory Exam Respiratory Exam: NORMAL BREATHING PATTERN. absent: Respiratory Distress - Cardiovascular Exam Cardiovascular Exam: REGULAR RHYTHM, +S1, +S2 - GI/Abdominal Exam GI & Abdominal Exam: Soft. absent: Tenderness Additional comments: pt with colostomy bag, with some brown stool - Extremities Exam Extremities Exam: Full ROM. absent: Normal Inspection Additional comments: positive for neurofibromas - Neurological Exam Neurological Exam: Alert, Awake, Oriented x3 - Psychiatric Exam Psychiatric exam: Normal Affect, Normal Mood - Skin Skin Exam: Dry, Intact, Normal Color, Warm Assessment and Plan - Assessment and Plan (Free Text) Assessment: This is a 62 yo male with past medical hx of mucinous adenocarcinoma (diagnosed 10/2016) s/p chemotherapy (3-4 sessions) and partial proctectomy with proctoanal anastamosis 10/21/16, neurofibromas, scoliosis, HTN, HLD, COPD,and paraphimosis- s/p circumcision who presented with rectal pain. S/P biopsy of rectal mass and LAD on 12/30/[address] Ruano. S/P colostomy 01/01/18; plan for radiation, chemotherapy if patient is agreeable. Plan: 1. Rectal Mass -Left Groin LAD, suspicious for mets -History of Mucinous Adenocarcinoma -Prior history of colonic polyps -General Surgery consulted. Dr. Ruano. recs appreciated. -S/P Colostomy 01/01/18 -Attending, resident, and palliative care nurse spoke to length about colostomy , chemotherapy and radiation. Patient ultimately agreed for colostomy but hesitant to agree to chemotherapy and radiation due to the side effects. Will consider and speak with his stepdaughter. -Spoke with Dr. Castaneda - pending the goals of care and what the patient is agreeable to, she will happily see the patient to resume treatment - will speak to Dr. Castaneda once patient decides his treatment plan -Pathology: Rectal mass: fibroadipose and muscular tissue involved by adenocarcinoma w/mucinous features/ Left inguinal lymph node: nodular fragment of adenocarcinoma w/ mucinous features -heme/onc consult. Dr. Castaneda. recs appreciated. -History of mucinous adenocarcinoma (diagnosed 10/2016) ;s/p chemotherapy (1-2 sessions, unclear why he did not continue) and partial proctectomy with proctoanal anastamosis 10/21/16 - EUS (11/01/16): uT3uN0 evidence of internal and sphincter invasion by EUS criteria. No lymph nodes were seen in perirectal region, in a peritumoral location during endosonographic examination of the anal cancer, rectum, and sigmoid colon. Imaging: - CT chest, ab, pelvis: Rectal mass noted 5.1 x 4.3 x 4.5 cm. LAD noted left groin measuring 2.5 x 3.0 x 3cm suspicious for metastatic disease -continue morphine 2 mg IV q 4 hrs prn pain -continue anusol cream per rectum bid georgina 2. Incidental liver hypodense lesion - Noted on CT scan 6mm focal lesion - will need repeat in 3-6 months 3. Hx Neurofibromas - continue to monitor 4. Hx of BPH: -continue finaseride 5 mg po daily -continue cardura 2 mg po daily. 5. Hx HTN - continue lisinopril 10 mg po daily -continue lopressor 25 mg po bid 6. Hx HLD - Patient is currently not on a statin - Lipid panel - within normal limits -continue to monitor 7. Hx COPD - Not in acute exacerbation - Duonebs RQ6 hrs PRN -continue advair diskus INH 1 puff rQ12 [facility] 8. Hx Paraphimosis - s/p circumcision 9. Hx Scoliosis -continue to monitor -PT/OT 10. Tachycardia: -likely secondary to pain -CXR: no acute disease -TSH/Free T4: 1.59/1.64, within normal range 11. GI/DVT Prophylaxis - GI: Protonix 40 mg IV daily - DVT: SCDs, VTE c/i 2/2 colostomy 01/01/18 Disposition: Pain management; patient to be setup for home nursing and ostomy care for Friday discharge. Daughter Edilma: [phone] <Arcadio Seals - Last Filed: 01/05/18 19:00> Objective - Vital Signs/Intake and Output Vital Signs (last 24 hours): Temp Pulse Resp BP Pulse Ox 98.4 F 100 H 20 108/63 94 L 01/05/18 15:20 01/05/18 15:20 01/05/18 15:20 01/05/18 18:06 01/05/18 15:20 Intake and Output: 01/05/18 01/05/18 06:59 18:59 Output Total 200 Balance -200 - Medications Medications: Current Medications Albuterol/Ipratropium (Duoneb 3 Mg/0.5 Mg (3 Ml) Ud) 3 ml INH RQ6 PRN PRN Reason: Shortness of Breath Doxazosin Mesylate (Cardura) 2 mg PO DAILY [facility] Last Admin: 01/05/18 10:33 Dose: 2 mg Finasteride (Proscar) 5 mg PO DAILY [facility] Last Admin: 01/05/18 10:34 Dose: 5 mg Heparin Sodium (Porcine) (Heparin) 5,000 units SC Q8 [facility] Last Admin: 01/05/18 13:42 Dose: 5,000 units Hydrocortisone (Anusol-Hc) 0 gm DE BID [facility] Last Admin: 01/05/18 18:07 Dose: Not Given Lisinopril (Zestril) 10 mg PO DAILY [facility] Last Admin: 01/05/18 10:34 Dose: 10 mg Metoprolol Tartrate (Lopressor) 25 mg PO BID [facility] Last Admin: 01/05/18 18:06 Dose: 25 mg Morphine Sulfate (Morphine) 2 mg IVP Q4H PRN PRN Reason: Pain, moderate (4-7) Last Admin: 01/04/18 18:12 Dose: 2 mg Morphine Sulfate (Morphine) 4 mg IVP Q4 PRN PRN Reason: Pain, severe (8-10) Last Admin: 01/05/18 18:29 Dose: 4 mg Pantoprazole Sodium (Protonix Ec Tab) 40 mg PO DAILY [facility] Last Admin: 01/05/18 10:34 Dose: 40 mg Fluticasone/Salmeterol (Advair Diskus 250/50) 1 puff INH RQ12 [facility] Last Admin: 01/05/18 07:29 Dose: 1 puff - Labs Labs: 01/05/18 07:01 01/05/18 07:01 PT 12.3 SECONDS (9.7-12.2) H 12/29/17 16:47 INR 1.1 12/29/17 16:47 APTT 36 SECONDS (21-34) H 12/29/17 16:47 Attending/Attestation - Attestation I have personally seen and examined this patient.: Yes I have fully participated in the care of the patient.: Yes I have reviewed all pertinent clinical information, including history, physical exam and plan: Yes Notes (Text): 01/05/18 18:57 Patient was seen and examined at 2:00 PM Also on ROS: Continues to have abdominal pain diffusely but is not asking for pain medication. Made sure Nurse call button within reach and explained to him that he must press it when the pain was too great for him. Also on Exam: Tenderness to palpation in all 4 quadrants. Left Quadrant Colostomy with brown well formed stool Neurofibromas on bilateral UE and Back He was encouraged to drink at least 3 Ensure Enlive per day Patient again expressed to me that he is not interested in Chemo/Radiation and wants to go home. Will speak with Dairy Science Teacher/Box Attacher 01/06/18 about setting up Home Visitin Nurse for care and Colostomy Care training. Arcadio Seals D.O.
[2018-01-05 07:06] LABS: BASO % 0.4 % (0.0-2.0); EOS # 0.1 K/uL (0.0-0.7); EOS % 1.1 % (0.0-4.0); HEMOGLOBIN 12.6 g/dL (12.0-18.0); LYMPH % 16.5 % (20.0-40.0); MEAN CELL VOLUME 90.2 fL (80.0-94.0); MEAN CORPUSCULAR HEMOGLOBIN 31.3 pg (27.0-31.0); MEAN CORPUSCULAR HGB CONC 34.7 g/dL (33.0-37.0); MEAN PLATELET VOLUME 6.4 fL (7.2-11.7); MONO # 0.8 K/uL (0.0-0.8); MONO % 13.1 % (0.0-10.0); NEUT # 4.1 K/uL (1.8-7.0); NEUT % 68.9 % (50.0-75.0); RBC 4.02 Mil/uL (4.40-5.90); RED CELL DISTRIBUTION WIDTH 12.8 % (11.5-14.5)
[2018-01-05] MEDS: Fluticasone-Salmeterol 250-50mcg Diskus INH SCH (07:29)
[2018-01-05 07:30] LABS: ALB/GLOB RATIO 1.1 (1.0-2.1); ALBUMIN 3.3 g/dL (3.5-5.0); ALT/SGPT 25 U/L (21-72); AST/SGOT 23 U/L (17-59); BLOOD UREA NITROGEN 17 mg/dL (9-20); CALCIUM 8.8 mg/dl (8.6-10.4); GFR AFRICAN-AMERICAN > 60; GFR NON-AFRICAN AMERICAN > 60
[2018-01-05] MEDS: Hydrocortisone 2.5% Rectal Cream(30 gm) PR SCH ×2 (10:30→18:07)
[2018-01-05] MEDS: Pantoprazole 40 mg EC Tab PO SCH (10:34)
[2018-01-06 00:22] VITALS: PULSE 88
[2018-01-06] MEDS: Fluticasone-Salmeterol 250-50mcg Diskus INH SCH (07:42)
[2018-01-06] MEDS ORDERED: Morphine 4 MG/ML VIAL IVP PRN ×2 (08:30)
[2018-01-06 08:52] VITALS: TEMP 98; O2SAT 100
--- NOTE | 2018-01-06 09:50 | CP.PCM.DIS ---
<Neha Luna - Last Filed: 01/06/18 10:52> Provider - Provider Date of Admission: 12/29/17 00:02 Attending physician: Arcadio Seals MD Time Spent in preparation of Discharge (in minutes): 55 Hospital Course - Lab Results Lab Results: Most Recent Lab Values WBC 6.0 K/uL (4.8-10.8) 01/05/18 07:01 RBC 4.02 Mil/uL (4.40-5.90) L 01/05/18 07:01 Hgb 12.6 g/dL (12.0-18.0) 01/05/18 07:01 Hct 36.2 % (35.0-51.0) 01/05/18 07:01 MCV 90.2 fL (80.0-94.0) 01/05/18 07:01 MCH 31.3 pg (27.0-31.0) H 01/05/18 07:01 MCHC 34.7 g/dL (33.0-37.0) 01/05/18 07:01 RDW 12.8 % (11.5-14.5) 01/05/18 07:01 Plt Count 278 K/uL (130-400) 01/05/18 07:01 MPV 6.4 fL (7.2-11.7) L 01/05/18 07:01 Neut % (Auto) 68.9 % (50.0-75.0) 01/05/18 07:01 Lymph % (Auto) 16.5 % (20.0-40.0) L 01/05/18 07:01 [place] % (Auto) 13.1 % (0.0-10.0) H 01/05/18 07:01 Eos % (Auto) 1.1 % (0.0-4.0) 01/05/18 07:01 Baso % (Auto) 0.4 % (0.0-2.0) 01/05/18 07:01 Neut # (Auto) 4.1 K/uL (1.8-7.0) 01/05/18 07:01 Lymph # (Auto) 1.0 K/uL (1.0-4.3) 01/05/18 07:01 [place] # (Auto) 0.8 K/uL (0.0-0.8) 01/05/18 07:01 Eos # (Auto) 0.1 K/uL (0.0-0.7) 01/05/18 07:01 Baso # (Auto) 0.0 K/uL (0.0-0.2) 01/05/18 07:01 Neutrophils % (Manual) 87 % (50-75) H 01/02/18 07:11 Band Neutrophils % 2 % (0-2) 01/02/18 07:11 Lymphocytes % (Manual) 6 % (20-40) L 01/02/18 07:11 Monocytes % (Manual) 5 % (0-10) 01/02/18 07:11 Platelet Estimate Normal (NORMAL) 01/02/18 07:11 RBC Morphology Normal 01/02/18 07:11 PT 12.3 SECONDS (9.7-12.2) H 12/29/17 16:47 INR 1.1 12/29/17 16:47 APTT 36 SECONDS (21-34) H 12/29/17 16:47 Sodium 135 mmol/L (132-148) 01/05/18 07:01 Potassium 4.5 mmol/L (3.6-5.2) 01/05/18 07:01 Chloride 98 mmol/L (98-107) 01/05/18 07:01 Carbon Dioxide 30 mmol/L (22-30) 01/05/18 07:01 Anion Gap 13 (10-20) 01/05/18 07:01 BUN 17 mg/dL (9-20) 01/05/18 07:01 Creatinine 0.6 mg/dL (0.8-1.5) L 01/05/18 07:01 Est GFR ( Amer) > 60 01/05/18 07:01 Est GFR (Non-Af Amer) > 60 01/05/18 07:01 POC Glucose (mg/dL) 105 mg/dL (65-110) 12/29/17 16:25 Random Glucose 105 mg/dL (75-110) 01/05/18 07:01 Calcium 8.8 mg/dl (8.6-10.4) 01/05/18 07:01 Phosphorus 3.7 mg/dL (2.5-4.5) 01/05/18 07:01 Magnesium 1.8 mg/dL (1.6-2.3) 01/05/18 07:01 Total Bilirubin 0.7 mg/dL (0.2-1.3) 01/05/18 07:01 AST 23 U/L (17-59) 01/05/18 07:01 ALT 25 U/L (21-72) 01/05/18 07:01 Alkaline Phosphatase 66 U/L (38-126) 01/05/18 07:01 Total Protein 6.5 g/dL (6.3-8.3) 01/05/18 07:01 Albumin 3.3 g/dL (3.5-5.0) L 01/05/18 07:01 Globulin 3.2 gm/dL (2.2-3.9) 01/05/18 07:01 Albumin/Globulin Ratio 1.1 (1.0-2.1) 01/05/18 07:01 Triglycerides 49 mg/dL (0-149) 12/31/17 06:10 Cholesterol 149 mg/dL (0-199) 12/31/17 06:10 LDL Cholesterol Direct 102 mg/dL (0-129) 12/31/17 06:10 HDL Cholesterol 36 mg/dL (30-70) 12/31/17 06:10 Free T4 1.64 ng/dL (0.78-2.19) 01/03/18 14:07 TSH 3rd Generation 1.59 mIU/L (0.46-4.68) 01/03/18 14:07 Urine Color Yellow (YELLOW) 12/28/17 18: Urine Clarity Clear (Clear) 12/28/17 18: Urine pH 5.0 (5.0-8.0) 12/28/17 18: Ur Specific [place] 1.015 (1.003-1.030) 12/28/17 18: Urine Protein Negative mg/dL (NEGATIVE) 12/28/17 18: Urine Glucose (UA) Normal mg/dL (Normal) 12/28/17 18: Urine Ketones Trace mg/dL (NEGATIVE) 12/28/17 18: Urine Blood 1+ (NEGATIVE) H 12/28/17 18:31 Urine Nitrate Negative (NEGATIVE) 12/28/17 18: Urine Bilirubin Negative (NEGATIVE) 12/28/17 18: Urine Urobilinogen Normal mg/dL (0.2-1.0) 12/28/17 18:31 Ur Leukocyte Esterase Neg Stacy/uL (Negative) 12/28/17 18:31 Urine WBC (Auto) < 1 /hpf (0-5) 12/28/17 18:31 Urine RBC (Auto) 1 /hpf (0-3) 12/28/17 18:31 - Hospital Course Hospital Course: Upon Admission: This is a 62 yo male with hx of rectal tumor/cancer, s/p chemotherapy, asthma, HTN, scoliosis, originally from [place], presenting to [facility] [place] ER with chief complaint of rectal pain. The pain is 9/10 and has been going on for 2 months. It is constant. He reports hx of rectal cancer that he says was diagnosed by a surgeon nearby. He says he was operated on for this rectal cancer last year. Records indicate he had a partial proctectomy with anastomosis. He reports going through 3-4 rounds of chemo. Does not know name of oncologist. Denies any radiation. Denies any blood in his stool. Says pain was getting so bad so he decided to come in. Does report weight loss. Does not have a current PMD. PMH: rectal cancer, scoliosis, groin mass, asthma, HTN, neurofibromas, paraphimosis PSH: sx for rectal cancer, circumcision, port placement FH: denies Allergies: NKDA Home meds: bp and pain med -cannot say Social hx: former smoker. does not drink. former cocaine user. from [place]. lives with daughter in apt. Throughout Hospital Course: 1) Rectal Mass History of Mucinous Adenocarcinoma Prior history of colonic polyps * Concern for malignancy-->involved by adenocarcinoma with mucinous features. * General Surgery consulted -Dr. Ruano - S/P biopsy of rectal mass and LAD on 12/30/[address] Ruano. S/P colostomy 01/01/18; plan for radiation, chemotherapy if patient is agreeable. * Rectal Mass-->Fibroadipose and muscular tissue involved by adenocarcinoma with mucinous features. * Left inguinal-->nodular adenocarcinoma with mucinous features. * Portion rectal tumor-->Fibroadipose and muscular tissue involved by adenocarcinoma with mucinous features. * Heme/Onc consulted - Dr. Castaneda * History of mucinous adenocarcinoma (diagnosed 10/2016) s/p chemotherapy (3-4 sessions, unclear why he did not continue) and partial proctectomy with proctoanal anastamosis 10/21/16 * EUS (11/01/16): [id number] evidence of internal and sphincter invasion by EUS criteria. No lymph nodes were seen in perirectal region,, in a peritumoral location during endosonographic examination of the anal cancer, rectum, and sigmoid colon. * Imaging: * CT chest, ab, pelvis: Rectal mass noted 5.1 x 4.3 x 4.5 cm. LAD noted left groin measuring 2.5 x 3.0 x 3cm suspicious for metastatic disease. Perianal mass suspicious for malignancy. left groin mass/ adenopathy suspicious for metastasis disease. * Palliative care on board help appreciated * 01/02/18: Goals of care discussed. Doctor Rosales and Doctor Luna present as well. At first, I elicited patient's understanding about his disease. Patient admitted he was told last year that he had hemorrhoids and rectal cancer. Patient was not clear about why he did not finish his radiation Tx. Doctor Rosales further discussed his condition and reasons for colonoscopy and radiation of rectal area. Patient was not able to understand and repeatedly was asking what colostomy was for. I reviewed all proposed procedures and the rationales for it in a very simple language which patient could understand. He admitted of being afraid. I further offered more informations about rectal cancer, one of them being if patient becomes completely unable to move his bowels due to obstruction. Further I presented him with more info on stoma care and need for daily care. He stated understanding and agreed wiyh colostomy creation in am. Recommended: Doctor Ruano to review procedure with patient and obtain consent; Would change Percocet PO to Morphine 4 mg Im Q 4 hr PRN pain. Patient will most likely be NPO before and after Sx and IM pain meds are more appropriate; Patient needs constant reassurance and reinforcement * Management: * Anusol as needed * Morphine 2mg IV Q 4H PRN pain, moderate * Morphine 4mg IV Q 4H PRN pain, severe * Patient is medically optimized for surgical intervention. patient's ekg showing sinus tachycardia, suspecting secondary to pain. Chest xray: stable severe thoracic levoscolilosis. No focal consolidation or pleural effusion. Per detskys criteria, had is considered low cardiac risk, subject to class 6% complications based on abnormal ekg. Surgery and anesthesia to discuss risk and benefits of procedure prior to procedure with patient. 2) Incidental liver hypodense lesion * Noted on CT scan 6mm focal lesion 3) Hx Neurofibromas * appears; however patient has not had genetic testing to confirm nor skin biopsy 4) Hx BPH * Restarted home medications: Proscar 5mg PO daily, Cardura 2mg PO daily 5) Hx Scoliosis * Chest xray (12/29/17): stable severe thoracic levoscoliosis. No focal consolidation or pleural effusion. * CT Chest/Abdomen/Pelvis (12/28/17): emphysema, marked scoliosis, no pulmonary mass 6) Hx HTN * Blood pressure control * Lisinopril 10mg PO daily 7) Hx HLD * T, Cholesterol: 149, LDL: 102, HDL: 36 * Patient is currently not on a statin 8) Hx COPD * patient is not in acute exacerbation * will add duonebs PRN * Advair 250/50 1 puff inhaled Q12H * Chest xray (12/29/17): stable severe thoracic levoscoliosis. No focal consolidation or pleural effusion. * CT Chest/Abdomen/Pelvis (12/28/17): emphysema, marked scoliosis, no pulmonary mass 9) Hx Paraphimosis * s/p circumcision Discussed with patient's step daughter, Cara Valderrama ([phone]) who is patient's health proxy in regards to patient's hospitalization; including pathology result showing mucinous adenocarcinoma. I do defer to groover and striper operator and radiation oncologist in terms of prognosis and mortality associated in regards to this type of cancer. I have provided the office numbers of oncologist : Dr Bev Castaneda and Dr. Tracie Amezcua so more information regarding the specifics of this cancer can be discussed. She does indicate that patient fears chemotherapy side effects including hair loss, nausea, vomitting. She also reports patient tends to be reliant on what his friends tell him (they are not medically trained) such as eating only tomatoes or taking only vitamins. She also reports patient has not shared his cancer including management with his family in [place]. She does indicate that he is particular about what he eats but I have indicated that he needs to eat to provide nutrition and energy if he chooses to pursue chemotherapy and radiation options. I have also indicated that he needs to understand that if he does not pursue those options that itself also comes with risks including pain, weight loss etc that he is within his right. Patient's daughterherself is familar with cancer since her mother from head/neck cancer; had ostomy and underwent chemo/radiation. I spoke with Dr. Bev Castaneda later this evening given the pathology results. Informed her palliative care on board. Patient has not made a decision of what he wants to do in regards to his cancer diagnosis. She agrees the family can call her office on Friday in regards to prognosis and treatment options. Please review EMR for full record, as this is a brief summary of the patient's hospital course. Discharge Exam - Additional Findings Additional findings: - Constitutional Appears: Chronically Ill - Head Exam Head Exam: NORMAL INSPECTION, NORMOCEPHALIC - Eye Exam Eye Exam: EOMI, Normal appearance. absent: Nystagmus, Scleral icterus Pupil Exam: NORMAL ACCOMODATION - ENT Exam ENT Exam: Mucous Membranes Moist - Neck Exam Neck Exam: Normal Inspection. absent: Lymphadenopathy - Respiratory Exam Respiratory Exam: Clear to Ausculation Bilateral, NORMAL BREATHING PATTERN - Cardiovascular Exam Cardiovascular Exam: REGULAR RHYTHM, right port-a-cath noted - GI/Abdominal Exam GI & Abdominal Exam: Soft, Normal Bowel Sounds, colostomy in place, stoma pink, output noted in bag absent: Distended, Tenderness, Organomegaly - Rectal Exam Rectal Exam: Deferred - Extremities Exam Extremities Exam: absent: Calf Tenderness, Pedal Edema, Tenderness - Neurological Exam Neurological Exam: Alert, Awake, Oriented x3 - Skin Additional comments: multiple scattered neurofibromas all throughout body. Cafe au lait spots noted on both axilla, thighs, lower back. Discharge Plan - Discharge Medications Prescriptions: Doxazosin [Cardura] 2 mg PO DAILY #30 tab Finasteride [Proscar] 5 mg PO DAILY #30 tab Fluticasone/Salmeterol 250/50 [Advair Diskus 250/50] 1 puff INH RQ12 #1 inhaler Lisinopril [Zestril] 10 mg PO DAILY #30 tab Metoprolol Tartrate [Lopressor] 25 mg PO BID #60 tab - Follow Up Plan Condition: STABLE Disposition: HOME/ ROUTINE Instructions: How to Care for Your Ostomy, Adult, Skin Biopsy, Portacath (DC), Doxazosin, Finasteride, Fluticasone and Salmeterol, Lisinopril, Metoprolol, Skin Lesion Removal (DC), Colostomy Care Additional Instructions: Please continue taking the following medications: Advair 1 puff Q12H Zestril 10mg By mouth daily and Lopressor 25mg by mouth twice a day for your blood pressure Proscar 5mg by mouth daily and Cardura 2mg by mouth daily for your enlarged prostate Percocet 1 tablet every 6 hours for SEVERE pain as needed - If the pain is not managed by the percocet you will need to follow up with your primary care doctor to refer you to a pain management doctor to better control your pain. If you do not have a primary care physician please come see us at our [facility] in the basement at [address] . [phone] If you decide to resume Chemotherapy - attached to these papers is Dr Bev Castaneda and Dr. Tracie Amezcua's office addresses and numbers - you can call to make an appointment to start the process of chemotherapy and radiation. You will have a home visiting nurse to come see you to help you with the colostomy care. You will also have physical therapy come 1-3 times a week for 1- 2 weeks to help you regain your strength. It is very important that you drink Ensures/ Boosts 3 times a day to help you with your energy level and to provide protein to your body. Regardless of what decision you make to continue chemotherapy or not, you will need to have a discussion with your stepdaughter who is the patient's health proxy, about your goals of care. If you would want cardiopulmonary resuscitation (chest compressions, medications to try to restart the heart) or a tube down your throat to help you breath (if you couldn't breathe yourself). These are conversations that are better discussed now than at a time of crisis. Please take care and be well. --- Por favor, contine tomando los siguientes medicamentos: Advair 1 puff Q12H Zestril 10mg por la boca diariamente y Lopressor 25mg por la boca dos veces al d a para la presin arterial Proscar 5 mg por va oral al da y Cardura 2 mg por va oral al da para woodard pr stata agrandada Percocet 1 tableta cada 6 horas para un dolor shameka, segn sea necesario: si el dolor no es administrado por el percocet, tendr que hacer un seguimiento con woodard mdico de atencin primaria para remitirlo a un mdico especialista en el control del dolor para controlar mejor woodard dolor. Si no tiene un mdico de atencin primaria, por favor, victor m a vernos a nuestro [facility] en el [facility] [address] [place], [place]. [phone] Si decide reanudar la quimioterapia, adjunta a estos documentos, direcciones y n meros de la oficina del Dr. Bev Castaneda y la Dra. Tracie Amezcua, puede llamar para programar brandi esa para iniciar el proceso de quimioterapia y radiacin. Tendr brandi enfermera de visita domiciliaria para que lo visite y lo ayude con la atencin de la colostoma. Tambin tendr terapia fsica que viene 1-3 veces a la semana taylor 1-2 semanas para ayudarlo a recuperar woodard [place]. Es muy importante que bebas Asegura / Aumenta 3 veces al da para ayudarte con tu nivel de energa y para proporcionar protenas a tu cuerpo. Independientemente de la decisin que tome para continuar con la quimioterapia o no, tendr que conversar con woodrad hijastra, que es el apoderado de kat del paciente, sobre ever objetivos de atencin. Si desea reanimacin cardiopulmonar ( compresiones de pecho, medicamentos para tratar de reiniciar el corazn) o un tubo en la garganta para ayudarlo a respirar (si no puede respirar). Estas son conversaciones que se discuten mejor ahora que en un momento de crisis. Por favor cudate y estate tara. Referrals: Tracie Amezcua MD [Staff Provider] - Brigida Castaneda MD [Staff Provider] - Chilo Ruano MD [Staff Provider] - <Arcadio Seals - Last Filed: 01/06/18 18:04> Provider - Provider Date of Admission: 12/29/17 00:02 Attending physician: Arcadio Seals MD Time Spent in preparation of Discharge (in minutes): 40 Hospital Course - Lab Results Lab Results: Most Recent Lab Values WBC 6.0 K/uL (4.8-10.8) 01/05/18 07:01 RBC 4.02 Mil/uL (4.40-5.90) L 01/05/18 07:01 Hgb 12.6 g/dL (12.0-18.0) 01/05/18 07:01 Hct 36.2 % (35.0-51.0) 01/05/18 07:01 MCV 90.2 fL (80.0-94.0) 01/05/18 07:01 MCH 31.3 pg (27.0-31.0) H 01/05/18 07:01 MCHC 34.7 g/dL (33.0-37.0) 01/05/18 07:01 RDW 12.8 % (11.5-14.5) 01/05/18 07:01 Plt Count 278 K/uL (130-400) 01/05/18 07:01 MPV 6.4 fL (7.2-11.7) L 01/05/18 07:01 Neut % (Auto) 68.9 % (50.0-75.0) 01/05/18 07:01 Lymph % (Auto) 16.5 % (20.0-40.0) L 01/05/18 07:01 [place] % (Auto) 13.1 % (0.0-10.0) H 01/05/18 07:01 Eos % (Auto) 1.1 % (0.0-4.0) 01/05/18 07:01 Baso % (Auto) 0.4 % (0.0-2.0) 01/05/18 07:01 Neut # (Auto) 4.1 K/uL (1.8-7.0) 01/05/18 07:01 Lymph # (Auto) 1.0 K/uL (1.0-4.3) 01/05/18 07:01 [place] # (Auto) 0.8 K/uL (0.0-0.8) 01/05/18 07:01 Eos # (Auto) 0.1 K/uL (0.0-0.7) 01/05/18 07:01 Baso # (Auto) 0.0 K/uL (0.0-0.2) 01/05/18 07:01 Neutrophils % (Manual) 87 % (50-75) H 01/02/18 07:11 Band Neutrophils % 2 % (0-2) 01/02/18 07:11 Lymphocytes % (Manual) 6 % (20-40) L 01/02/18 07:11 Monocytes % (Manual) 5 % (0-10) 01/02/18 07:11 Platelet Estimate Normal (NORMAL) 01/02/18 07:11 RBC Morphology Normal 01/02/18 07:11 PT 12.3 SECONDS (9.7-12.2) H 12/29/17 16:47 INR 1.1 12/29/17 16:47 APTT 36 SECONDS (21-34) H 12/29/17 16:47 Sodium 135 mmol/L (132-148) 01/05/18 07:01 Potassium 4.5 mmol/L (3.6-5.2) 01/05/18 07:01 Chloride 98 mmol/L (98-107) 01/05/18 07:01 Carbon Dioxide 30 mmol/L (22-30) 01/05/18 07:01 Anion Gap 13 (10-20) 01/05/18 07:01 BUN 17 mg/dL (9-20) 01/05/18 07:01 Creatinine 0.6 mg/dL (0.8-1.5) L 01/05/18 07:01 Est GFR ( Amer) > 60 01/05/18 07:01 Est GFR (Non-Af Amer) > 60 01/05/18 07:01 POC Glucose (mg/dL) 105 mg/dL (65-110) 12/29/17 16:25 Random Glucose 105 mg/dL (75-110) 01/05/18 07:01 Calcium 8.8 mg/dl (8.6-10.4) 01/05/18 07:01 Phosphorus 3.7 mg/dL (2.5-4.5) 01/05/18 07:01 Magnesium 1.8 mg/dL (1.6-2.3) 01/05/18 07:01 Total Bilirubin 0.7 mg/dL (0.2-1.3) 01/05/18 07:01 AST 23 U/L (17-59) 01/05/18 07:01 ALT 25 U/L (21-72) 01/05/18 07:01 Alkaline Phosphatase 66 U/L (38-126) 01/05/18 07:01 Total Protein 6.5 g/dL (6.3-8.3) 01/05/18 07:01 Albumin 3.3 g/dL (3.5-5.0) L 01/05/18 07:01 Globulin 3.2 gm/dL (2.2-3.9) 01/05/18 07:01 Albumin/Globulin Ratio 1.1 (1.0-2.1) 01/05/18 07:01 Triglycerides 49 mg/dL (0-149) 12/31/17 06:10 Cholesterol 149 mg/dL (0-199) 12/31/17 06:10 LDL Cholesterol Direct 102 mg/dL (0-129) 12/31/17 06:10 HDL Cholesterol 36 mg/dL (30-70) 12/31/17 06:10 Free T4 1.64 ng/dL (0.78-2.19) 01/03/18 14:07 TSH 3rd Generation 1.59 mIU/L (0.46-4.68) 01/03/18 14:07 Urine Color Yellow (YELLOW) 12/28/17 18:31 Urine Clarity Clear (Clear) 12/28/17 18: Urine pH 5.0 (5.0-8.0) 12/28/17 18: Ur Specific [place] 1.015 (1.003-1.030) 12/28/17 18:31 Urine Protein Negative mg/dL (NEGATIVE) 12/28/17 18: Urine Glucose (UA) Normal mg/dL (Normal) 12/28/17 18: Urine Ketones Trace mg/dL (NEGATIVE) 12/28/17 18:31 Urine Blood 1+ (NEGATIVE) H 12/28/17 18:31 Urine Nitrate Negative (NEGATIVE) 12/28/17 18:31 Urine Bilirubin Negative (NEGATIVE) 12/28/17 18:31 Urine Urobilinogen Normal mg/dL (0.2-1.0) 12/28/17 18:31 Ur Leukocyte Esterase Neg Stacy/uL (Negative) 12/28/17 18:31 Urine WBC (Auto) < 1 /hpf (0-5) 12/28/17 18:31 Urine RBC (Auto) 1 /hpf (0-3) 12/28/17 18:31 Attending/Attestation - Attestation I have personally seen and examined this patient.: Yes I have fully participated in the care of the patient.: Yes I have reviewed all pertinent clinical information, including history, physical exam and plan: Yes
[2018-01-06] MEDS: Pantoprazole 40 mg EC Tab PO SCH (10:49)
[2018-01-06 11:00] VITALS: BP 113/68
[2018-01-06] MEDS: Hydrocortisone 2.5% Rectal Cream(30 gm) PR SCH (11:00)
== END 2018-01-06 15:00 | disposition home or self-care (01) | DRG 148 ==
LOC: C.ER 17:31 → C.9E 12-29 00:02 → C.6T 12-29 01:59
PROVIDERS: ADMIT Internal Medicine; ATTEND Family Medicine
PROC: 0DBP0ZX Excision of Rectum, Open Approach, Diagnostic (ICD-10-PCS; 2017-12-30)
PROC: 0YB60ZX Excision of Left Inguinal Region, Open Approach, Diagnostic (ICD-10-PCS; 2017-12-30 13:30)
PROC: 0D1N0Z4 Bypass Sigmoid Colon to Cutaneous, Open Approach (ICD-10-PCS; principal; 2018-01-01 12:00)
DX: C21.8 Malignant neoplasm of overlapping sites of rectum, anus and anal canal (principal); N18.9 Chronic kidney disease, unspecified; E78.5 Hyperlipidemia, unspecified; K64.9 Unspecified hemorrhoids; M41.9 Scoliosis, unspecified; N40.1 Benign prostatic hyperplasia with lower urinary tract symptoms; R33.8 Other retention of urine; Z51.5 Encounter for palliative care; Z87.891 Personal history of nicotine dependence; Z92.21 Personal history of antineoplastic chemotherapy; I12.9 Hypertensive chronic kidney disease with stage 1 through stage 4 chronic kidney disease, or unspecified chronic kidney disease; Z68.1 Body mass index [BMI] 19.9 or less, adult; K76.9 Liver disease, unspecified

== ENCOUNTER 2018-01-09 15:03 | Emergency (ER) | payer MEDICAID ==
[2018-01-09 15:18] VITALS: BMI 18.0
[2018-01-09 15:21] VITALS: RESP 20
--- NOTE | 2018-01-09 17:22 | C.PDOC ---
History Of Present Illness 62 y/o M c PMHx colon cancer s/p resection with colostomy, recently discharged, sent from clinic today for pain at colostomy site and colostomy bag poorly adhered. Patient denies fever, chills, vomiting, dyspnea. Time Seen by Provider: 01/09/18 16:13 Chief Complaint (Nursing): Abdominal Pain Past Medical History Vital Signs: Last Vital Signs Temp 98.8 F 01/09/18 15:18 Pulse 108 H 01/09/18 15:18 Resp 20 01/09/18 15:18 BP 124/81 01/09/18 15:18 Pulse Ox 100 01/09/18 17:31 - Medical History PMH: Asthma, Benign Prostatic Hyperplasia, HTN, Chronic Kidney Disease Denies: HIV - [facility] Procedures BYPASS SIGMOID COLON TO CUTANEOUS, OPEN APPROACH (12/29/17) DRAINAGE OF BLADDER WITH DRAINAGE DEVICE, VIA OPENING (02/17/17) EXCISION OF ASCENDING COLON, ENDO, DIAGN (10/20/16) EXCISION OF LEFT INGUINAL REGION, OPEN APPROACH, DIAGNOSTIC (12/29/17) EXCISION OF RECTUM, OPEN APPROACH, DIAGNOSTIC (12/29/17) EXCISION OF SIGMOID COLON, ENDO, DIAGN (10/20/16) FLUOROSCOPY OF KIDNEYS, URETERS AND BLADDER (02/17/17) INSERTION OF VAD INTO CHEST SUBCU/FASCIA, OPEN APPROACH (10/20/16) INSPECTION OF BLADDER, ENDO (02/17/17) INSPECTION OF UPPER INTESTINAL TRACT, ENDO (10/20/16) INSPECTION OF UPPER VEIN, EXTERNAL APPROACH (10/20/16) RESECTION OF PREPUCE, EXTERNAL APPROACH (02/17/17) Family History: States: Unknown Family Hx - Social History Hx Tobacco Use: No Hx Alcohol Use: No Hx Substance Use: No - Immunization History Hx Tetanus Toxoid Vaccination: No Hx Influenza Vaccination: No Hx Pneumococcal Vaccination: No Review Of Systems Except As Marked, All Systems Reviewed And Found Negative. Constitutional: Negative for: Fever Cardiovascular: Negative for: Chest Pain Physical Exam - Physical Exam Additional Physical Exam Comments: Gen: NAD Head: NC Eyes: No icterus ENT: MMM Neck: Supple Chest: No deformity CV: Regular rate Abd: L sided colostomy, mostly adhered, some liquid stool between inferior colostomy adhesive and skin. Formed soft stool emerging from ostomy into bag. Tissue appears healthy and pink. Skin: No surrounding erythema Neuro: Alert ED Course And Treatment O2 Sat by Pulse Oximetry: 100 Medical Decision Making Medical Decision Making: Discussed case with coordinating team from patient's previous admission. Arranged to have patient visited by nurse at home tomorrow morning who will change colostomy bag and also take care of pain control. Patient treated with 1 dose of IM morphine here and family arrived to take patient home. Arrangements have also been made for patient to be taken from home to [facility]. Disposition - Disposition Disposition: HOME/ ROUTINE Disposition Time: 17:29 Condition: STABLE Instructions: How to Care for Your Ostomy, Adult Forms: [facility] (Yakut) - Clinical Impression Clinical Impression: Colostomy in place
[2018-01-09 17:54] VITALS: BP 127/82; PULSE 121; TEMP 98.3; O2SAT 97
== END 2018-01-09 17:58 | disposition home or self-care (01) ==
LOC: C.ER 15:03
DX: Z43.3 Encounter for attention to colostomy (principal)
CPT/HCPCS: 96372; 99284; J2270